=== PATIENT | male | born 1955 | race African-American/Black ===

== ENCOUNTER 2016-08-09 14:57 | Emergency (ER) | payer SELFPAY ==
[~2016-08-09] VITALS: Ht 180.3 cm; Wt 98.5 kg
[2016-08-09 14:59] VITALS: BP 191/127; PULSE 108; RESP 15; TEMP 98.1; O2SAT 98
[2016-08-09 15:58] LABS: AUTOMATED NEUTROPHIL # 7.3 TH/MM3 (1.8-7.7); BASOPHIL % 0.4 % (0.0-2.0); EOSINOPHIL # 0.1 TH/MM3 (0-0.4); EOSINOPHIL % 1.2 % (0.0-4.0); HEMATOCRIT 40.6 % (39.0-51.0); HEMO FLAGS DIFF FINAL; LYMPH % 16.1 % (9.0-44.0); LYMPHOCYTE # 1.6 TH/MM3 (1.0-4.8); MEAN CELL VOLUME 94.2 FL (80.0-100.0); MEAN CORPUSCULAR HEMOGLOBIN 32.3 PG (27.0-34.0); MEAN CORPUSCULAR HGB CONC 34.3 % (32.0-36.0); MONO % 10.5 % (0.0-8.0); NEUT % 71.8 % (16.0-70.0); PLATELET COUNT 387 TH/MM3 (150-450); RED BLOOD COUNT 4.31 MIL/MM3 (4.50-5.90); RED CELL DISTRIBUTION WIDTH 13.5 % (11.6-17.2); WHITE BLOOD COUNT 10.1 TH/MM3 (4.0-11.0)
[2016-08-09 16:04] LABS: BLOOD, URINE SMALL (NEG); COMMENT (UR) CULT NOT INDICATED; CULTURE IF INDICATED CULT NOT INDICATED; GLUCOSE,URINE NEG (NEG); HYALINE CAST, URINE 2 /lpf (RARE); KETONE, URINE NEG (NEG); MUCUS URINE MOD /lpf (OCC); NITRITE,URINE NEG (NEG); SQUAMOUS EPITHELIAL CELL URINE <1 /hpf (0-5); URINE COLOR YELLOW (YELLW/STRAW)
[2016-08-09 16:20] LABS: ALT (GPT) 25 U/L (12-78); ANION GAP 9 MEQ/L (5-15); AST (GOT) 34 U/L (15-37); BICARBONATE 27.6 MEQ/L (21.0-32.0); BLOOD UREA NITROGEN 8 MG/DL (7-18); CHLORIDE 102 MEQ/L (98-107); GLOMERULAR FILTRATION RATE 81 ML/MIN (>89); POTASSIUM 3.5 MEQ/L (3.5-5.1); SODIUM (NA) 139 MEQ/L (136-145)
[2016-08-09 16:22] LABS: ALKALINE PHOSPHATASE 61 U/L (45-117); TOTAL BILIRUBIN ADULT 0.2 MG/DL (0.2-1.0)
[2016-08-09 16:44] VITALS: BP 214/126; PULSE 90; RESP 17; O2SAT 97
--- NOTE | 2016-08-09 17:04 | PD ---
HPI Chief Complaint: GI Complaint Time Seen by Provider: 16:46 Travel History International Travel<30 days: No Contact w/Intl Traveler<30days: No Traveled to known affect area: No History of Present Illness HPI 61-year-old Afro-[place] male presents emergency Department with several month history of abdominal cramping and discomfort with increased gas and change of bowel habits over the past 2-3 months. Patient is noted in the last 2 days as had some blood in his stool and with wiping. He denies pain at the rectum or burning or hemorrhoids. Patient has also noticed some intermittent dysuria, but denies fever, chills, nausea, heartburn, or vomiting. Patient states his stools are very mucousy over the past few months. Patient is eating and has good appetite. Patient has history of hypertension for which she has not been treated for several years. Patient states when they tried treating him before "nothing worked". Patient is under a lot of stress recently with his undergoing breast cancer treatments, and recent job interview which got him quite anxious. Patient denies any chest pain or palpitations. He denies any headache or other upper respiratory symptoms. He denies any other neurological symptoms. Patient's labs were performed in triage per protocol. Patient has no known drug allergies. PFSH Past Medical History Hypertension: Yes Social History Alcohol Use: Yes Tobacco Use: No Substance Use: No Allergies-Medications (Allergen,Severity, Reaction): Coded Allergies: No Known Allergies (Unverified , 08/09/16) Reported Meds & Prescriptions Reported Meds & Active Scripts Active Amlodipine (Amlodipine Besylate) 5 Mg Tab 5 Mg PO DAILY Levsin (Hyoscyamine Sulfate) 0.125 Mg Tab 0.125 Mg PO Q4H Review of Systems General / Constitutional: No: Fever, Chills Eyes: No: Visual changes HENT: No: Headaches, Vertigo, Lightheadedness, Sore Throat, Rhinitis, Rhinorrhea, Congestion, Neck Stiffness, Neck Pain Cardiovascular: No: Chest Pain or Discomfort, Palpitations, Irregular Rhythm, Tachycardia, Diaphoresis Respiratory: No: Cough, Shortness of Breath, Wheezing Gastrointestinal: Positive: Abdominal Pain (generalized mild cramping), Hematochezia, Changes in Bowel Habits, No: Nausea, Vomiting, Diarrhea, Hematemesis, Constipation, Indigestion, Dysphagia, Loss of Appetite, Other Genitourinary: Positive: Dysuria (occasional burning with urination.), No: Urgency, Frequency, Nocturia, Hematuria, Decreased Urinary Output Musculoskeletal: No: Pain Skin: No Rash Neurologic: No: Weakness Psychiatric: No: Depression Endocrine: No: Polydipsia Hematologic/Lymphatic: No: Easy Bruising Physical Exam Narrative GENERAL: Patient appears comfortable on the bed with no acute distress. SKIN: Warm and dry. Normal color. Normal turgor. HEAD: Atraumatic. Normocephalic. EYES: Pupils equal and round. No scleral icterus. No injection or drainage. ENT: No nasal bleeding or discharge. Mucous membranes pink and moist. Pharynx is clear. Airway is patent. NECK: Trachea midline. No JVD. Supple nontender. CARDIOVASCULAR: Regular rate and rhythm. No murmurs gallops or rubs. RESPIRATORY: No accessory muscle use. Clear to auscultation. Breath sounds equal bilaterally. GASTROINTESTINAL: Abdomen soft, non-tender, nondistended. Hepatic and splenic margins not palpable. No CVA tenderness. Rectal exam shows no fissure or obvious hemorrhoids. Stool is grossly guaiac positive. No ketan blood is noted. MUSCULOSKELETAL: Extremities without clubbing, cyanosis, or edema. No obvious deformities. NEUROLOGICAL: Awake and alert. No obvious cranial nerve deficits. Motor grossly within normal limits. Five out of 5 muscle strength in the arms and legs. Normal speech. PSYCHIATRIC: Appropriate mood and affect; insight and judgment normal. Data Data Last Documented VS Vital Signs Date Time Temp Pulse Resp B/P Pulse Ox O2 Delivery O2 Flow Rate FiO2 08/09/16 16:44 90 17 214/126 97 Room Air 08/09/16 14:59 98.1 Orders Complete Blood Count With Diff (08/09/16 15:16) Comprehensive Metabolic Panel (08/09/16 15:16) Urinalysis - C+S If Indicated (08/09/16 15:16) Lipase (08/09/16 15:16) Amlodipine (Norvasc) (08/09/16 17:45) Labs Laboratory Tests Test 08/09/16 15:37 White Blood Count 10.1 TH/MM3 Red Blood Count 4.31 MIL/MM3 Hemoglobin 13.9 GM/DL Hematocrit 40.6 % Mean Corpuscular Volume 94.2 FL Mean Corpuscular Hemoglobin 32.3 PG Mean Corpuscular Hemoglobin 34.3 % Concent Red Cell Distribution Width 13.5 % Platelet Count 387 TH/MM3 Mean Platelet Volume 7.5 FL Neutrophils (%) (Auto) 71.8 % Lymphocytes (%) (Auto) 16.1 % Monocytes (%) (Auto) 10.5 % Eosinophils (%) (Auto) 1.2 % Basophils (%) (Auto) 0.4 % Neutrophils # (Auto) 7.3 TH/MM3 Lymphocytes # (Auto) 1.6 TH/MM3 Monocytes # (Auto) 1.1 TH/MM3 Eosinophils # (Auto) 0.1 TH/MM3 Basophils # (Auto) 0.0 TH/MM3 CBC Comment DIFF FINAL Differential Comment Urine Color YELLOW Urine Turbidity CLEAR Urine pH 6.0 Urine Specific [place] 1.022 Urine Protein 100 mg/dL Urine Glucose (UA) NEG mg/dL Urine Ketones NEG mg/dL Urine Occult Blood SMALL Urine Nitrite NEG Urine Bilirubin NEG Urine Urobilinogen 4.0 MG/DL Urine Leukocyte Esterase NEG Urine RBC 21 /hpf Urine WBC 1 /hpf Urine Squamous Epithelial <1 /hpf Cells Urine Hyaline Casts 2 /lpf Urine Mucus MOD /lpf Microscopic Urinalysis Comment CULT NOT INDICATED Sodium Level 139 MEQ/L Potassium Level 3.5 MEQ/L Chloride Level 102 MEQ/L Carbon Dioxide Level 27.6 MEQ/L Anion Gap 9 MEQ/L Blood Urea Nitrogen 8 MG/DL Creatinine 0.95 MG/DL Estimat Glomerular Filtration 81 ML/MIN Rate Random Glucose 81 MG/DL Calcium Level 9.3 MG/DL Total Bilirubin 0.2 MG/DL Aspartate Amino Transf 34 U/L (AST/SGOT) Alanine Aminotransferase 25 U/L (ALT/SGPT) Alkaline Phosphatase 61 U/L Total Protein 8.6 GM/DL Albumin 3.5 GM/DL Lipase 110 U/L [facility] Medical Decision Making Medical Screen Exam Complete: Yes Emergency Medical Condition: Yes Differential Diagnosis Hypertension. Abdominal pain and cramping. Guaiac positive stool. Narrative Course Patient is medically stable at time of exam. Labs are reviewed and shown to be stable. Patient is discussed with Dr. Salvador, who recommends treating the patient with amlodipine 5 mg daily, and close follow-up with management lecturer for colonoscopy workup. Patient is agreeable to this plan. Call was placed to Dr. Melgoza, the management lecturer on-call. Dr. Melgoza asked the patient to call her office tomorrow to make a follow-up appointment. The plan was discussed with the patient and agrees follow-up. Patient is given amlodipine 10 mg once now. Patient is given a prescription for Levsin 0.25 mg every 6 hours when necessary #60. Patient is also started what amlodipine 5 mg daily #30. Patient should follow-up with a local primary care physician as well. Diagnosis Primary Impression: Hypertension Qualified Code: I10 - Essential hypertension Additional Impressions: Guaiac positive stools Abdominal cramping Referrals: Dahiana Melgoza MD call for appointment [facility] call for appointment Patient Instructions: 2 Gram Sodium Diet (GEN), General Instructions, Hypertension (ED), Irritable Bowel Syndrome (ED) Additional Instructions: Dr. Melgoza asked the patient to call her office tomorrow to make a follow-up appointment. The plan was discussed with the patient and agrees follow-up. Patient is given amlodipine 10 mg once now. Patient is given a prescription for Levsin 0.25 mg every 6 hours when necessary #60. Patient is also started what amlodipine 5 mg daily #30. Patient should follow-up with a local primary care physician as well. Med/Other Pt SpecificInfo: Prescription(s) given Scripts Amlodipine 5 Mg Tab5 Mg PO DAILY #30 TAB Ref 0 Prov:Quan Salvador MD 08/09/16 Hyoscyamine (Levsin)0.125 Mg Tab0.125 Mg PO Q4H #60 TAB Ref 0 Prov:Quan Salvador MD 08/09/16 Disposition: 01 DISCHARGE HOME Condition: Stable Christopher Paul Aug 09, 2016 17:04
[2016-08-09] MEDS ORDERED: AMLO5TAB2 PO (17:40)
[2016-08-09] MEDS ORDERED: LEVS0.123 PO (17:40)
[2016-08-09 17:53] VITALS: BP 215/127; PULSE 92; RESP 18; O2SAT 95
== END 2016-08-09 18:21 | disposition home or self-care (01) ==
LOC: NEPE 14:57
DX: I10 Essential (primary) hypertension (principal); R10.9 Unspecified abdominal pain; R19.5 Other fecal abnormalities
CPT/HCPCS: 80053; 81001; 83690; 85025; 99284

== ENCOUNTER 2016-10-18 08:31 | Inpatient (IN) | payer SELFPAY ==
[~2016-10-18] VITALS: Ht 180.3 cm; Wt 80.0 kg
[2016-10-18] VITALS (12 sets, daily range): BP systolic 146–205; BP diastolic 84–128; PULSE 85–114; RESP 16–20; TEMP 98.1–99.1; O2SAT 94–98
[~2016-10-18 08:31] MED LIST: AMLO5TAB2 PO; LEVS0.123 PO
[2016-10-18] MEDS ORDERED: SODIUM CHLORIDE 0.9% FLUSH 10 ML FLUSH IV FLUSH PRN ×2 (09:15→15:00)
--- NOTE | 2016-10-18 09:21 | PD ---
HPI Chief Complaint: Complaint Time Seen by Provider: 09:01 Travel History International Travel<30 days: No Contact w/Intl Traveler<30days: No Traveled to known affect area: No History of Present Illness HPI This patient complains of some vague suprapubic discomfort for the last 2-3 months. He was not able to urinate this morning. When he urinates he feels like he has discomfort. Denies vomiting or fever or diarrhea. No abdominal surgeries. Symptoms severity is moderate. No alleviating factors. PFSH Past Medical History Hypertension: Yes Tetanus Vaccination: Unknown Past Surgical History Surgical History: No Previous Surgery Social History Alcohol Use: Yes (occassional) Tobacco Use: Yes (since teenager) Substance Use: No Allergies-Medications (Allergen,Severity, Reaction): Coded Allergies: No Known Allergies (Unverified , 10/18/16) Reported Meds & Prescriptions Reported Meds & Active Scripts Active Amlodipine (Amlodipine Besylate) 5 Mg Tab 5 Mg PO DAILY Levsin (Hyoscyamine Sulfate) 0.125 Mg Tab 0.125 Mg PO Q4H Review of Systems General / Constitutional: No: Fever Eyes: No: Visual changes HENT: No: Headaches Cardiovascular: No: Chest Pain or Discomfort Respiratory: No: Shortness of Breath Gastrointestinal: Positive: Abdominal Pain Genitourinary: Positive: Dysuria, Hematuria, Decreased Urinary Output, Hesitancy Musculoskeletal: No: Pain Skin: No Rash Neurologic: No: Weakness Psychiatric: No: Depression Endocrine: No: Polydipsia Hematologic/Lymphatic: No: Easy Bruising Physical Exam Narrative GENERAL: Well-nourished, well-developed patient with suprapubic pain. SKIN: Focused skin assessment reveals no rash and nodules. Skin is Warm and dry. HEAD: Atraumatic. Normocephalic. EYES: Pupils equal and round. No scleral icterus. No injection or drainage. ENT: No nasal bleeding or discharge. Mucous membranes pink and moist. NECK: Trachea midline. No JVD. CARDIOVASCULAR: Regular rate and rhythm. No murmur appreciated. RESPIRATORY: No accessory muscle use. Clear to auscultation. Breath sounds equal bilaterally. GASTROINTESTINAL: Abdomen soft, is a vague sense of suprapubic fullness, nondistended. Hepatic and splenic margins not palpable. MUSCULOSKELETAL: No obvious deformities. No clubbing. No cyanosis. No edema. NEUROLOGICAL: Awake and alert. No obvious cranial nerve deficits. Motor grossly within normal limits. Normal speech. PSYCHIATRIC: Appropriate mood and affect; insight and judgment normal. exam: Circumcised penis. No testicular tenderness. No groin hernia Data Data Last Documented VS Vital Signs Date Time Temp Pulse Resp B/P Pulse Ox O2 Delivery O2 Flow Rate FiO2 10/18/16 13:57 92 18 179/110 96 Room Air 10/18/16 11:06 98.1 Orders Basic Metabolic Panel (Bmp) (10/18/16 09:09) Complete Blood Count With Diff (10/18/16 09:09) Urinalysis - C+S If Indicated (10/18/16 09:09) Iv Access Insert/Monitor (10/18/16 09:09) NPO (10/18/16 09:09) Sodium Chloride 0.9% Flush (Ns Flush) (10/18/16 09:15) Urinary Catheter Insert/Apply (10/18/16 09:09) Urine Culture (10/18/16 09:20) Ct Abd/Pel W Iv Contrast(Rout) (10/18/16 10:01) Clonidine (Catapres) (10/18/16 10:15) Iohexol 350 Inj (Omnipaque 350 Inj) (10/18/16 11:53) Metronidazole 500 Mg Inj (Flagyl 500 Mg (10/18/16 13:15) Levofloxacin 750 Mg Premix Inj (Levaquin (10/18/16 13:15) Admit Order (Ed Use Only) (10/18/16 14:17) Labs Laboratory Tests Test 10/18/16 10/18/16 10/18/16 09:00 09:20 10:10 White Blood Count 14.6 TH/MM3 Red Blood Count 4.38 MIL/MM3 Hemoglobin 13.3 GM/DL Hematocrit 40.5 % Mean Corpuscular Volume 92.5 FL Mean Corpuscular Hemoglobin 30.4 PG Mean Corpuscular Hemoglobin 32.9 % Concent Red Cell Distribution Width 13.4 % Platelet Count 553 TH/MM3 Mean Platelet Volume 7.8 FL Neutrophils (%) (Auto) 80.8 % Lymphocytes (%) (Auto) 5.6 % Monocytes (%) (Auto) 13.3 % Eosinophils (%) (Auto) 0.1 % Basophils (%) (Auto) 0.2 % Neutrophils # (Auto) 11.8 TH/MM3 Lymphocytes # (Auto) 0.8 TH/MM3 Monocytes # (Auto) 1.9 TH/MM3 Eosinophils # (Auto) 0.0 TH/MM3 Basophils # (Auto) 0.0 TH/MM3 CBC Comment DIFF FINAL Differential Comment Urine Color LIGHT-BROWN Urine Turbidity HAZY Urine pH 6.0 Urine Specific [place] 1.022 Urine Protein 300 mg/dL Urine Glucose (UA) NEG mg/dL Urine Ketones 40 mg/dL Urine Occult Blood LARGE Urine Nitrite NEG Urine Bilirubin NEG Urine Urobilinogen 8.0 MG/DL Urine Leukocyte Esterase LARGE Urine RBC /hpf Urine WBC /hpf Urine WBC Clumps MOD Urine Bacteria FEW /hpf Urine Mucus MOD /lpf Microscopic Urinalysis Comment CULTURE INDICATED Sodium Level 134 MEQ/L Potassium Level 3.9 MEQ/L Chloride Level 97 MEQ/L Carbon Dioxide Level 27.4 MEQ/L Anion Gap 10 MEQ/L Blood Urea Nitrogen 14 MG/DL Creatinine 0.78 MG/DL Estimat Glomerular Filtration 123 ML/MIN Rate Random Glucose 97 MG/DL Calcium Level 9.3 MG/DL [facility] Medical Decision Making Medical Screen Exam Complete: Yes Emergency Medical Condition: Yes Medical Record Reviewed: Yes Differential Diagnosis Urinary retention, colitis, diverticulitis Narrative Course I have reviewed the patient's electronic medical record. IV placed CBC shows leukocytosis of 15,000 Metabolic profile is normal Acuna catheter placed to evaluate for urinary retention but he has only 100 cc of urine Urinalysis shows a lot of inflammatory cells Blood pressure very elevated on arrival, on recheck it is 160/100 CT of abdomen and pelvis with IV contrast reveals a lot of inflammatory changes along the colon with extraluminal gas and fluid as well as suggestion of a colovesical fistula Case reviewed with Dr. Lyssa Diaz who will be consulted Discussed with medical residents who will admit I gave a dose of IV Levaquin and IV Flagyl Diagnosis Primary Impression: Diverticulitis large intestine Qualified Code: K57.32 - Diverticulitis of large intestine without bleeding, unspecified complication status Additional Impression: Colovesical fistula Admitting Information Admitting Physician Requests: Admit Gerardo Milton MD Oct 18, 2016 09:21
[2016-10-18 09:39] LABS: AUTOMATED NEUTROPHIL # 11.8 TH/MM3 (1.8-7.7); BASOPHIL % 0.2 % (0.0-2.0); EOSINOPHIL % 0.1 % (0.0-4.0); HEMATOCRIT 40.5 % (39.0-51.0); HEMO FLAGS DIFF FINAL; LYMPH % 5.6 % (9.0-44.0); LYMPHOCYTE # 0.8 TH/MM3 (1.0-4.8); MEAN CELL VOLUME 92.5 FL (80.0-100.0); MEAN CORPUSCULAR HEMOGLOBIN 30.4 PG (27.0-34.0); MEAN CORPUSCULAR HGB CONC 32.9 % (32.0-36.0); MONO % 13.3 % (0.0-8.0); NEUT % 80.8 % (16.0-70.0); PLATELET COUNT 553 TH/MM3 (150-450); RED BLOOD COUNT 4.38 MIL/MM3 (4.50-5.90); RED CELL DISTRIBUTION WIDTH 13.4 % (11.6-17.2); WHITE BLOOD COUNT 14.6 TH/MM3 (4.0-11.0)
[2016-10-18 09:53] LABS: BACTERIA, URINE FEW /hpf; BLOOD, URINE LARGE (NEG); COMMENT (UR) CULTURE INDICATED; CULTURE IF INDICATED CULTURE INDICATED; GLUCOSE,URINE NEG (NEG); KETONE, URINE 40 mg/dL (NEG); MUCUS URINE MOD /lpf (OCC); NITRITE,URINE NEG (NEG)
[2016-10-18 09:55] LABS: URINE COLOR LIGHT-BROWN (YELLW/STRAW)
[2016-10-18] MEDS ORDERED: cloNIDine HCL 0.2 MG TAB PO ONE (10:15)
[2016-10-18 10:49] LABS: BICARBONATE 27.4 MEQ/L (21.0-32.0); POTASSIUM 3.9 MEQ/L (3.5-5.1)
[2016-10-18] MEDS ORDERED: IOHEXOL 350 MG/ML 10 ML VIAL (for RAD DIAG) IV ONE (11:53)
--- NOTE | 2016-10-18 12:12 | RADRPT ---
EXAM DATE/TIME: 10/18/2016 11:33 [place] COMPARISON: No previous studies available for comparison. INDICATIONS : Lower abdomen pain,blood in urine,groan pain for a few month IV CONTRAST: 85 cc Omnipaque 350 (iohexol) IV ORAL CONTRAST: No oral contrast ingested. RADIATION DOSE: 8.51 CTDIvol (mGy) MEDICAL HISTORY : Hypertension. SURGICAL HISTORY : None. ENCOUNTER: Initial ACUITY: 2 months PAIN SCALE: 8/10 LOCATION: Abdomen TECHNIQUE: Volumetric scanning of the abdomen and pelvis was performed. Using automated exposure control and ad justment of the mA and/or kV according to patient size, radiation dose was kept as low as reasonably achievable to obtain optimal diagnostic quality images. FINDINGS: LOWER LUNGS: Mild atelectasis at the lung bases. Coronary artery calcifications. Trace pericardial effusion. LIVER: Mild diffuse hepatic steatosis. No focal mass identified. Gallbladder within normal limits. SPLEEN: Normal size without lesion. PANCREAS: Within normal limits. KIDNEYS: Normal in size and shape. There is no mass, stone or hydronephrosis. ADRENAL GLANDS: Within normal limits. VASCULAR: There is no aortic aneurysm. BOWEL/MESENTERY: Large area of abnormality is identified in the proximal to mid sigmoid colon region. Marked wall thic kening of the sigmoid colon along with loculated extraluminal fluid and gas abutting the superior wal l of the urinary bladder. The abnormality measures 11 x 7 cm. Wall thickening of the urinary bladder and gas within the urinary bladder also noted. Acuna catheter is in place. Findings likely represent severe diverticulitis with likely colovesical fistula formation. Numerous colonic diverticula are see n. The inflammatory change also extends into the region of the distal left ureter. ABDOMINAL WALL: Within normal limits. RETROPERITONEUM: There is no lymphadenopathy. BLADDER: Described in bowel and mesentery section. REPRODUCTIVE: Within normal limits. INGUINAL: There is no lymphadenopathy or hernia. MUSCULOSKELETAL: Within normal limits for patient age. CONCLUSION: Severe abnormality of the proximal to mid sigmoid colon with marked wall thickening extensive loculat ed extraluminal gas and fluid in this region. Ill-defined inflammatory process extends to the superio r wall of the urinary bladder. Findings likely represent chronic severe diverticulitis with colovesic al fistula formation. Underlying mass also cannot be excluded with this appearance. Kd Roca MD on October 18, 2016 at 11:55 Board Certified Radiologist. This report was verified electronically.
[2016-10-18] MEDS ORDERED: LEVOFLOXACIN 750 MG PREMIX INJ 150 ML IV ONE (13:15)
[2016-10-18] MEDS ORDERED: metroNIDAZOLE 500 MG INJ 100 ML IV ONE (13:15)
[2016-10-18] MEDS ORDERED: ACETAMINOPHEN 325 MG TAB PO PRN (15:00)
[2016-10-18] MEDS ORDERED: NALOXONE HCL 0.4 MG/ML AMP IV PRN ×2 (15:00→23:00)
[2016-10-18] MEDS ORDERED: LABETALOL HCL 100 MG/20 ML VIAL IV PRN (15:00)
[2016-10-18] MEDS ORDERED: ACETAMINOPHEN 1000 MG/100 ML VIAL IV PRN (15:00)
--- NOTE | 2016-10-18 15:16 | HHI.HP ---
HPI Service Family Medicine Primary Care Physician No Primary Care Physician Admission Diagnosis diverticulitis with colovesical fistula Diagnoses: International Travel<30 Days: No Contact w/Intl Traveler<30days: No Known Affected Area: No History of Present Illness Cortez Bass is a 61-year-old man who presents to the ED with complaints of bilateral lower abdominal pain over the past 2-3 months in addition to difficulty passing stool over the same time period. He states he was in his normal state of health prior to 2-3 months ago and had never had issues with abdominal pain or difficulty passing stool prior to this onset. He states his abdominal pain has worsened since the onset. He states when he is passing stool he is only able to pass a very small amount. Denies any visible blood or melena. Denies any fevers or chills. Denies CP, SOB, lower extremity pain or swelling. He states for pain relief he has taken a few tablets of naproxen over the past couple of days. Prior to this he did not have any significant use of NSAIDs or other lriv-jcc-limuudp medications. The patient also reports blood in his urine which he has noticed over the past couple days. He denies dysuria. The patient does not have a primary care doctor and does not have any other known medical diagnoses other than hypertension. He states he has never had a colonoscopy. Review of Systems Constitutional: DENIES: Fever, Chills Respiratory: DENIES: Cough, Hemoptysis, Sputum production, Shortness of breath Cardiovascular: DENIES: Chest pain, Palpitations, Lower Extremity Edema Gastrointestinal: COMPLAINS OF: Abdominal pain, DENIES: Black stools, Bloody stools, Constipation, Diarrhea, Nausea, Vomiting Genitourinary: COMPLAINS OF: Hematuria, DENIES: Dysuria Integumentary: DENIES: Rash Past Family Social History Past Medical History Hypertension Past Surgical History Denies Allergies: Coded Allergies: No Known Allergies (Unverified , 10/18/16) Family History Mother due to an AR Father with cirrhosis due to alcoholism Patient not aware of any significant FH of GI disorders Social History Tobacco: Admits to smoking one half PPD since the age of 16, states he now currently smokes about 5 cigarettes daily EtOH: Occasional use, denies any heavy drinking Illicit drug use: Denies Physical Exam Vital Signs Vital Signs Date Time Temp Pulse Resp B/P Pulse Ox O2 Delivery O2 Flow Rate FiO2 10/18/16 13:57 92 18 179/110 96 Room Air 10/18/16 12:09 85 16 162/103 94 Room Air 10/18/16 11:06 98.1 88 18 155/105 96 Room Air 10/18/16 10:12 92 18 205/128 97 Room Air 10/18/16 08:45 98.1 108 20 184/128 95 Room Air 10/18/16 08:33 98.8 114 16 198/103 98 Physical Exam GENERAL: Appears in some distress 2/2 lower abdominal pain NEURO: AOx3. Normal speech. presales engineer grossly intact. Motor grossly normal. SKIN: Warm and dry. No rashes or erythema. HEAD: Normocephalic. Atraumatic. EYES: PERRL. EOMI. No scleral icterus. No injection or drainage. ENT: No nasal drainage. Moist mucous membranes. No oral ulcers or lesions. NECK: Supple, trachea midline. No JVD or lymphadenopathy. CARDIOVASCULAR: Regular rate and rhythm without murmurs, rubs, or gallops. Peripheral pulses 2+. Capillary refill < 2 seconds. RESPIRATORY: Breath sounds clear to auscultation and equal bilaterally, without wheezes, rales, or rhonchi. No accessory muscle use. GASTROINTESTINAL: Abdomen soft, nontender throughout, nondistended, normal BS. No organomegaly or masses. No rebound tenderness. No guarding. : Acuna in place. Circumcised penis. No LAD. No lesions. MUSCULOSKELETAL: No edema, cyanosis, or clubbing. Normal range of motion. BACK: Nontender without obvious deformity. Laboratory Laboratory Tests Test 10/18/16 10/18/16 10/18/16 09:00 09:20 10:10 White Blood Count 14.6 Red Blood Count 4.38 Hemoglobin 13.3 Hematocrit 40.5 Mean Corpuscular Volume 92.5 Mean Corpuscular Hemoglobin 30.4 Mean Corpuscular Hemoglobin 32.9 Concent Red Cell Distribution Width 13.4 Platelet Count 553 Mean Platelet Volume 7.8 Neutrophils (%) (Auto) 80.8 Lymphocytes (%) (Auto) 5.6 Monocytes (%) (Auto) 13.3 Eosinophils (%) (Auto) 0.1 Basophils (%) (Auto) 0.2 Neutrophils # (Auto) 11.8 Lymphocytes # (Auto) 0.8 Monocytes # (Auto) 1.9 Eosinophils # (Auto) 0.0 Basophils # (Auto) 0.0 CBC Comment DIFF FINAL Differential Comment Urine Color LIGHT-BROWN Urine Turbidity HAZY Urine pH 6.0 Urine Specific [place] 1.022 Urine Protein 300 Urine Glucose (UA) NEG Urine Ketones 40 Urine Occult Blood LARGE Urine Nitrite NEG Urine Bilirubin NEG Urine Urobilinogen 8.0 Urine Leukocyte Esterase LARGE Urine RBC Urine WBC Urine WBC Clumps MOD Urine Bacteria FEW Urine Mucus MOD Microscopic Urinalysis Comment CULTURE INDICATED Sodium Level 134 Potassium Level 3.9 Chloride Level 97 Carbon Dioxide Level 27.4 Anion Gap 10 Blood Urea Nitrogen 14 Creatinine 0.78 Estimat Glomerular Filtration 123 Rate Random Glucose 97 Calcium Level 9.3 Date/Time Procedure Status Source Growth 10/18/16 09:20 Urine Culture Received Urine Clean Catch Pending Result Diagram: 10/18/16 0900 10/18/16 1010 Septic Shock Reassessment Heart: Other (tachycardic rate, regular rhythm) Lungs: Clear Skin: Warm, Dry Peripheral Pulses: Bounding Right Radial Bounding Left Radial Bounding Right Dorsalis Pedis Bounding Left Dorsalis Pedis Bounding Right Posterior Tibial Bounding Left Posterior Tibial Capillary Refill: <2 seconds Assessment and Plan Assessment and Plan 61-year-old man presents with complaints of bilateral lower abdominal pain over the past 2-3 months in addition to difficulty passing stool and found to have findings on CT c/w chronic severe diverticulitis with colovesical fistula formation. Code Status Full code Problem List: (1) Diverticulitis Status: Acute Plan: - CT abdomen/pelvis findings of severe abnormality of the proximal to mid sigmoid colon with marked wall thickening extensive loculated extraluminal gas and fluid in this region. Ill-defined inflammatory process extends to the superior wall of the urinary bladder. Findings likely represent chronic severe diverticulitis with colovesical fistula formation. An underlying mass cannot be excluded. - Afebrile, leukocytosis to 14.6 - UA with large occult blood, neg nitrite, large LE - Urine culture pending - Blood cultures pending - Given Flagyl 500mg IV and Levaquin 750mg IV in the ED - Continue Flagyl 500mg IV q6h - Continue Levaquin 750mg IV q24h - Ofirmev 650 mg q4h prn pain 1-6 - Morphine 2 mg q4h prn pain 710 - NS at 125 cc/hr - Monitor vitals q4h - Continue to monitor WBC (2) Sepsis Status: Acute Plan: Meets sepsis criteria on admission Plan as above (3) Colovesical fistula Status: Acute Plan: - Findings of colovesical fistula on CT as above - Consult colorectal surgery - Acuna catheter in place - Monitor I/Os (4) Hypertension Status: Acute Plan: BP 198/103 on admission Patient was started on amlodipine here in the ED during a previous visit Start amlodipine 10 mg po daily Labetalol 10 mg IV q4h prn BP > 180/100 Monitor vitals q4h (5) Nutrition, metabolism, and development symptoms Status: Acute Plan: Fluids: NS at 125 cc/hr Electrolytes: Continue to monitor and replete as necessary Nutrition: Heart healthy diet, nothing by mouth after midnight DVT ppx: b/l SCDs Physician Certification 2 Midnight Certification Type: Admission for Inpatient Services Order for Inpatient Services The services are ordered in accordance with Medicare regulations or non- Medicare payer requirements, as applicable. In the case of services not specified as inpatient-only, they are appropriately provided as inpatient services in accordance with the 2-midnight benchmark. Estimated LOS (days): 2 days is the estimated time the patient will need to remain in the hospital, assuming treatment plan goals are met and no additional complications. Post-Hospital Plan: Home Crow Oliveira MD R1 Oct 18, 2016 15:16
[2016-10-18] MEDS: MORPHINE SULFATE 4 MG/ML INJ IV PUSH PRN ×2 (16:42→20:23)
[2016-10-18 17:05] LABS: INDIRECT BILIRUBIN 0.2 MG/DL (0.0-0.8); TOTAL BILIRUBIN ADULT 0.3 MG/DL (0.2-1.0)
[2016-10-18] MEDS: metroNIDAZOLE 500 MG INJ 100 ML IV SCH (20:24)
[2016-10-18] MEDS: SODIUM CHLORIDE 0.9% FLUSH 10 ML FLUSH IV FLUSH SCH (20:24)
[2016-10-18] MEDS: SODIUM CHLOR 0.9% 1000 ML INJ 1,000 ML IV SCH (20:25)
[2016-10-18] MEDS: HYDROmorphone HCL PF 1 MG/ML VIAL IV PRN (23:18)
[2016-10-19] VITALS: BP 153/91; PULSE 89; RESP 18; TEMP 99.1; O2SAT 95
[2016-10-19] MEDS: metroNIDAZOLE 500 MG INJ 100 ML IV SCH ×4 (00:28→17:09)
[2016-10-19 04:00] VITALS: BP 173/116; PULSE 86; RESP 18; TEMP 98.6; O2SAT 96
[2016-10-19] MEDS: SODIUM CHLOR 0.9% 1000 ML INJ 1,000 ML IV SCH ×2 (05:28→14:25)
[2016-10-19] MEDS: MORPHINE SULFATE 4 MG/ML INJ IV PUSH PRN ×2 (05:36→17:11)
[2016-10-19 06:42] LABS: AUTOMATED NEUTROPHIL # 11.8 TH/MM3 (1.8-7.7); BASOPHIL % 0.1 % (0.0-2.0); EOSINOPHIL % 0.1 % (0.0-4.0); LYMPH % 7.7 % (9.0-44.0); LYMPHOCYTE # 1.2 TH/MM3 (1.0-4.8); MEAN CELL VOLUME 92.1 FL (80.0-100.0); MEAN CORPUSCULAR HGB CONC 32.6 % (32.0-36.0); MONO % 15.8 % (0.0-8.0); NEUT % 76.3 % (16.0-70.0); PLATELET COUNT 488 TH/MM3 (150-450); RED BLOOD COUNT 4.02 MIL/MM3 (4.50-5.90); RED CELL DISTRIBUTION WIDTH 13.4 % (11.6-17.2); WHITE BLOOD COUNT 15.5 TH/MM3 (4.0-11.0)
[2016-10-19 06:45] LABS: HEMO FLAGS AUTO DIFF
--- NOTE | 2016-10-19 06:48 | MB ---
cc: FARRUKH BULLARD M.D. DATE OF CONSULTATION October 18, 2016 CHIEF COMPLAINT Diverticulitis. HISTORY OF PRESENT ILLNESS The patient is a 61-year-old -[place] male who presented to the emergency department with lower abdominal pain for about 2-3 months. This worsened over the last week until it became more severe. His normal bowel habit is two to three times daily but during this time he has had some intermittent problems with constipation as well. He has not had any melena or hematochezia. He has been having some night sweats but he has not taken his temperature. He denies any nausea or vomiting, although he has had some anorexia. He has not ever had a colonoscopy. He denies any family history of colorectal cancer, polyps or diverticulitis. PAST MEDICAL HISTORY Hypertension. PAST SURGICAL HISTORY None. ALLERGIES None. MEDICATIONS The patient was placed on something for high blood pressure when he was in the hospital last and he is not sure what it is. He says he is almost out of this medication. SOCIAL HISTORY The patient smokes about 5-10 cigarettes daily. Alcohol occasional. The patient denies any recreational drug use. REVIEW OF SYSTEMS Negative for headache, chest pain, shortness of breath, cough, difficulty with mood or mentation, difficulty with ambulation. PHYSICAL EXAMINATION GENERAL: Physical exam reveals an alert male who appears uncomfortable. NEURO: Grossly intact. SKIN: Warm and dry. CARDIOVASCULAR: Regular rate. CHEST: Breathing is symmetric bilaterally and nonlabored. ABDOMEN: Soft, nondistended. He is tender to palpation in the left lower quadrant and the suprapubic area. EXTREMITIES: No edema. LABORATORY WORK White count of 14.6, hemoglobin of 13.3 and platelets of 553. Chemistry shows a sodium of 134, potassium 3.9, chloride is 97, bicarb is 27.4, BUN is 14, creatinine is 0.78 and glucose is 97. His liver function tests are normal. His urinalysis does show moderate mucus, moderate white blood cell count, large leukocyte esterase. IMAGING STUDIES CT scan of the abdomen and pelvis shows marked wall thickening of the proximal to mid-colon with an extensive area of loculated extraluminal gas and fluid which of extends to the superior wall of the urinary bladder consistent with severe diverticulitis with colovesical fistula. IMPRESSION Diverticulitis with probable colovesical fistula. PLAN The natural history of diverticular disease was discussed with the patient as were the normal recommendations for surgery. If he worsens or fails to improve, we may need to consider urgent or emergent surgery with a colostomy and second surgery for reanastomosis. Hopefully, however we can get the diverticulitis under control and plan for an elective surgery 8-[address], which would enable us to not only perform this in a minimally invasive fashion but also possibly to avoid any colostomy. This was discussed in detail with the patient as well as the fact that, if he does indeed go on to develop a full-blown colovesical fistula, he is likely to have a repeat problems with urinary tract infections. Thank you very much for your kind referral. I will continue to follow along with patient with you. MD LAQUITA Vargas/SSB /6:28 PM /6:39 AM ZACHARY
[2016-10-19 07:11] LABS: ANION GAP 10 MEQ/L (5-15); AST (GOT) 19 U/L (15-37); BICARBONATE 25.4 MEQ/L (21.0-32.0); BLOOD UREA NITROGEN 12 MG/DL (7-18); CHLORIDE 98 MEQ/L (98-107); GLOMERULAR FILTRATION RATE 132 ML/MIN (>89); POTASSIUM 3.6 MEQ/L (3.5-5.1); SODIUM (NA) 133 MEQ/L (136-145)
[2016-10-19 07:12] LABS: ALT (GPT) 27 U/L (12-78)
[2016-10-19 07:14] LABS: ALKALINE PHOSPHATASE 85 U/L (45-117); TOTAL BILIRUBIN ADULT 0.3 MG/DL (0.2-1.0)
[2016-10-19 08:00] VITALS: BP 151/110; PULSE 85; PULSE 89; TEMP 99; O2SAT 96
[2016-10-19 08:00] LABS: BANDS 22 % (0-6); NEUTROPHIL # MANUAL DIFF 11.5 TH/MM3 (1.8-7.7); PLATELET ESTIMATE SMEAR HIGH (NORMAL); POLYS (SEG NEUTROPHILS) 52 % (16-70); WBC DIFF SAMPLE 100
[2016-10-19 08:01] LABS: PLATELET MORPHOLOGY NORMAL (NORMAL); SCAN/DIFF FINAL DIFF MANUAL
--- NOTE | 2016-10-19 08:47 | HHI.PR ---
Subjective Remarks Acute diverticulitis with ?colovesical fistula More comfortable Objective Vital Signs Date Time Temp Pulse Resp B/P Pulse Ox O2 Delivery O2 Flow Rate FiO2 10/19/16 04:00 98.6 86 18 173/116 96 10/19/16 00:00 99.1 89 18 153/91 95 10/18/16 20:00 99.1 98 18 179/118 96 10/18/16 18:16 92 18 146/84 96 10/18/16 18:16 98.7 93 18 146/84 97 10/18/16 17:44 91 19 159/96 96 Room Air 10/18/16 16:55 92 19 160/103 96 Room Air 10/18/16 16:33 87 18 169/109 96 Room Air 10/18/16 15:31 90 19 177/112 98 Room Air 10/18/16 13:57 92 18 179/110 96 Room Air 10/18/16 12:09 85 16 162/103 94 Room Air 10/18/16 11:06 98.1 88 18 155/105 96 Room Air 10/18/16 10:12 92 18 205/128 97 Room Air I/O 10/18/16 10/18/16 10/18/16 10/19/16 10/19/16 10/19/16 07:00 15:00 23:00 07:00 15:00 23:00 Intake Total 490 ml 1053 ml Output Total 350 ml 475 ml Balance 140 ml 578 ml Intake Oral 240 ml IV Total 250 ml 1053 ml Output Urine Total 350 ml 475 ml # Voids 0 Result Diagram: 10/19/16 0606 10/19/16 0606 Objective Remarks Abdomen soft, less tenderness Assessment and Plan Assessment and Plan Clinically improved but WBC's still high Continue clear liquids one more day Lyssa Diaz MD Oct 19, 2016 08:47
--- NOTE | 2016-10-19 08:50 | HHI.FPPN ---
Subjective Remarks Cortez Bass is a 61yo gentleman with medical history significant for HTN admitted for colovesical fistula after presenting for abdominal pain x 2-3 months, gradually worsening. + associated difficulty passing stools. He has also had hematuria x 2-3 days. For further details, please see resident H&P. This morning, he reports he is feeling a bit better. His abdominal pain is slightly better. No BM yet. He feels hungry. He denies fevers or chills. He has already been seen last night and this morning by Dr. Diaz, colorectal surgery. ROS: + abdominal pain (although improved). No nausea, no vomiting. No dysuria, but hematuria as above. No fevers. All other systems reviewed are negative. PMH/PSxH/SocHx/FamHx: Per resident H&P. Significant for: HTN. No prior surgeries. Mother from OR. Father with alcoholic cirrhosis. 20+ pack year smoking history, currently 5 cigarettes per day. Occasional alcohol use. No illicit drug use. Objective Vitals Vital Signs Date Time Temp Pulse Resp B/P Pulse Ox O2 Delivery O2 Flow Rate FiO2 10/19/16 04:00 98.6 86 18 173/116 96 10/19/16 00:00 99.1 89 18 153/91 95 10/18/16 20:00 99.1 98 18 179/118 96 10/18/16 18:16 92 18 146/84 96 10/18/16 18:16 98.7 93 18 146/84 97 10/18/16 17:44 91 19 159/96 96 Room Air 10/18/16 16:55 92 19 160/103 96 Room Air 10/18/16 16:33 87 18 169/109 96 Room Air 10/18/16 15:31 90 19 177/112 98 Room Air 10/18/16 13:57 92 18 179/110 96 Room Air 10/18/16 12:09 85 16 162/103 94 Room Air 10/18/16 11:06 98.1 88 18 155/105 96 Room Air 10/18/16 10:12 92 18 205/128 97 Room Air I/O 10/18/16 10/18/16 10/18/16 10/19/16 10/19/16 10/19/16 07:00 15:00 23:00 07:00 15:00 23:00 Intake Total 490 ml 1053 ml Output Total 350 ml 475 ml Balance 140 ml 578 ml Intake Oral 240 ml IV Total 250 ml 1053 ml Output Urine Total 350 ml 475 ml # Voids 0 Result Diagram: 10/19/1660510/19/16605 Objective Remarks GENERAL: in NAD, no resp distress, nontoxic. Lying comfortably in bed and changes from supine to sit without significant difficulty HEENT: NCAT, EOMI, no scleral icterus. No conjunctival injection. MMM. NECK: Supple, no meningeal signs. No murmurs CV: Irregular rhythm initially (PACs?) but regular upon second check. No murmurs. S1 S2 CHEST/PULM: CTAB, no crackles no wheezes ABD/GI: +BS, soft, nondistended. Mild tenderness to palpation at lower abdomen. No rebound, no guarding. EXT: 2+ DP pulses. No calf tenderness. No edema. NEURO: Awake, alert. Normal muscle tone. Grossly WNL. : No CVAT SKIN: No rashes, no jaundice. PSYCH: Mood and affect are appropriate. Speech fluent. Does not appear to respond to internal stimuli. A/P Assessment and Plan 61-year-old man presents with complaints of bilateral lower abdominal pain over the past 2-3 months in addition to difficulty passing stool and found to have findings on CT c/w chronic severe diverticulitis with colovesical fistula formation. Attending Attestation Patient seen, examined, and discussed with resident team. The patient has been seen and examined. The chart and all resident notes have been reviewed. I agree that inpatient care is appropriate and that a two midnight stay is expected for the reasons documented in the resident history and physical. I have discussed this with the resident and certify the resident s order for inpatient admission. Problem List: (1) Diverticulitis Status: Acute Plan: - CT abdomen/pelvis findings of severe abnormality of the proximal to mid sigmoid colon with marked wall thickening extensive loculated extraluminal gas and fluid in this region. Ill-defined inflammatory process extends to the superior wall of the urinary bladder. Findings likely represent chronic severe diverticulitis with colovesical fistula formation. An underlying mass cannot be excluded. - Afebrile but with leukocytosis - Blood cultures pending - Given Flagyl 500mg IV and Levaquin 750mg IV in the ED - Continue Flagyl 500mg IV q6h - Continue Levaquin 750mg IV q24h - Ofirmev 650 mg q4h prn pain 1-6 - Morphine 2 mg q4h prn pain 710 - NS at 125 cc/hr (2) Hematuria Status: Acute Plan: - UA with large occult blood, neg nitrite, large LE - Urine culture pending - Suspect secondary to colovesical fistula. - Antibiotics as above. (3) Sepsis Status: Acute Plan: Meets sepsis criteria on admission Plan as above (4) Colovesical fistula Status: Acute Plan: - Findings of colovesical fistula on CT as above - Consult colorectal surgery; Appreciate recommendations. - Acuna catheter in place (5) Hypertension Status: Chronic Plan: BP 198/103 on admission Patient was started on amlodipine here in the ED during a previous visit Continue amlodipine 10 mg po daily Labetalol 10 mg IV q4h prn BP > 180/100 Rahel Martin MD Oct 19, 2016 08:50 Nutrition: Heart healthy diet, nothing by mouth after midnight DVT ppx: b/l Rahel Escalera MD Oct 19, 2016 08:50 Electrolytes: Continue to monitor and replete as necessary Nutrition: Heart healthy diet, nothing by mouth after midnight DVT ppx: b/l Rahel Escalera MD Oct 19, 2016 08:50
[2016-10-19] MEDS: SODIUM CHLORIDE 0.9% FLUSH 10 ML FLUSH IV FLUSH SCH ×2 (09:00→20:44)
[2016-10-19 12:00] VITALS: BP 147/98; PULSE 84; TEMP 98.8; O2SAT 95
[2016-10-19] MEDS: HYDROmorphone HCL PF 1 MG/ML VIAL IV PRN ×2 (13:07→20:44)
[2016-10-19] MEDS: LEVOFLOXACIN 750 MG PREMIX INJ 150 ML IV SCH (14:22)
[2016-10-19 16:00] VITALS: BP 146/103; PULSE 80; TEMP 98.7; O2SAT 95
[2016-10-19 20:00] VITALS: BP 160/101; PULSE 79; PULSE 83; RESP 16; TEMP 97.7; O2SAT 92
[2016-10-19] MEDS ORDERED: LABETALOL HCL 100 MG/20 ML VIAL IV PUSH PRN (22:30)
[2016-10-20] VITALS (8 sets, daily range): BP systolic 138–180; BP diastolic 90–114; PULSE 65–82; RESP 16–20; TEMP 96.9–98.2; O2SAT 94–96
[2016-10-20] MEDS: cloNIDine HCL 0.1 MG TAB PO PRN (01:24)
[2016-10-20] MEDS: metroNIDAZOLE 500 MG INJ 100 ML IV SCH ×4 (01:25→17:25)
[2016-10-20] MEDS: SODIUM CHLOR 0.9% 1000 ML INJ 1,000 ML IV SCH ×3 (01:26→19:19)
[2016-10-20] MEDS: MORPHINE SULFATE 4 MG/ML INJ IV PUSH PRN ×6 (01:43→21:44)
[2016-10-20 05:16] LABS: AUTOMATED NEUTROPHIL # 8.2 TH/MM3 (1.8-7.7); BASOPHIL % 0.2 % (0.0-2.0); EOSINOPHIL # 0.1 TH/MM3 (0-0.4); EOSINOPHIL % 0.4 % (0.0-4.0); HEMATOCRIT 35.9 % (39.0-51.0); HEMO FLAGS DIFF FINAL; LYMPH % 12.5 % (9.0-44.0); LYMPHOCYTE # 1.4 TH/MM3 (1.0-4.8); MEAN CELL VOLUME 91.3 FL (80.0-100.0); MEAN CORPUSCULAR HEMOGLOBIN 31.3 PG (27.0-34.0); MEAN CORPUSCULAR HGB CONC 34.2 % (32.0-36.0); NEUT % 72.9 % (16.0-70.0); PLATELET COUNT 457 TH/MM3 (150-450); RED BLOOD COUNT 3.93 MIL/MM3 (4.50-5.90); RED CELL DISTRIBUTION WIDTH 13.2 % (11.6-17.2); WHITE BLOOD COUNT 11.2 TH/MM3 (4.0-11.0)
[2016-10-20 05:32] LABS: BICARBONATE 26.1 MEQ/L (21.0-32.0); POTASSIUM 3.7 MEQ/L (3.5-5.1)
--- NOTE | 2016-10-20 08:30 | HHI.PR ---
Subjective Remarks C/R Surg afebrile, VSS UO good jacobo PO liq says pain better Objective - Vital Signs Date Time Temp Pulse Resp B/P Pulse Ox O2 Delivery O2 Flow Rate FiO2 10/20/16 07:46 96.9 65 20 180/110 96 10/18/16 17:44 Room Air Result Diagram: 10/20/16 0438 10/20/16 0438 Objective Remarks PE alert Abd - soft, mass palp lower abd A/P Assessment and Plan Imp: stable on ab's cont bowel rest Christopher Robins MD Oct 20, 2016 08:30
[2016-10-20] MEDS: SODIUM CHLORIDE 0.9% FLUSH 10 ML FLUSH IV FLUSH SCH ×2 (08:48→19:56)
[2016-10-20] MEDS: ENALAPRIL MALEATE 5 MG TAB PO SCH ×2 (08:51→20:25)
--- NOTE | 2016-10-20 09:20 | HHI.FPPN ---
Subjective Remarks Patient is doing better today. His pain is under better control. Continues to have mild burning on urination. Denies nausea or vomiting. He has not had much to eat, but says his appetite has increased. He would like solid food if possible. Denies fever, chills, headache. (Dedrick Raphael MD R2) Objective Vitals Vital Signs Date Time Temp Pulse Resp B/P Pulse Ox O2 Delivery O2 Flow Rate FiO2 10/20/16 07:46 96.9 65 20 180/110 96 10/20/16 05:56 18 10/20/16 02:30 167/101 10/20/16 00:00 97.8 75 16 168/114 96 10/19/16 22:00 18 10/19/16 20:00 79 10/19/16 20:00 97.7 83 16 160/101 92 10/19/16 16:00 98.7 80 146/103 95 10/19/16 12:00 98.8 84 147/98 95 I/O 10/19/16 10/19/16 10/19/16 10/20/16 10/20/16 10/20/16 07:00 15:00 23:00 07:00 15:00 23:00 Intake Total 1053 ml 848 ml 720 ml 1236 ml 120 ml Output Total 475 ml 600 ml 1100 ml Balance 578 ml 848 ml 120 ml 136 ml 120 ml Intake Oral 720 ml 210 ml 120 ml IV Total 1053 ml 848 ml 1026 ml Output Urine Total 475 ml 600 ml 1100 ml # Voids 5 # Bowel Movements 1 1 (Dedrick Raphael MD R2) Result Diagram: 10/20/1643710/20/16437 Objective Remarks GENERAL: in NAD, no resp distress, nontoxic. Lying comfortably in bed and changes from supine to sit without significant difficulty HEENT: NCAT, EOMI, no scleral icterus. No conjunctival injection. MMM. NECK: Supple, no meningeal signs. No murmurs CV: Regular rate, irregular rhythm. No murmurs CHEST/PULM: CTAB, no crackles no wheezes ABD/GI: +BS, soft, nondistended. Mild tenderness to palpation at lower abdomen. No rebound, no guarding. EXT: 2+ DP pulses. No calf tenderness. No edema. NEURO: Awake, alert. Normal muscle tone. Grossly WNL. : No CVAT SKIN: No rashes, no jaundice. PSYCH: Mood and affect are appropriate. Speech fluent. Does not appear to respond to internal stimuli. (Dedrick Raphael MD R2) A/P Assessment and Plan 61-year-old man presents with complaints of bilateral lower abdominal pain over the past 2-3 months in addition to difficulty passing stool and found to have findings on CT c/w chronic severe diverticulitis with colovesical fistula formation. Colorectal surgery consult. Likely will perform operation in 8-12 weeks after bowel rest, and antibiotics. Discharge Planning Pending specialist recommendations (Dedrick Raphael MD R2) Attending Attestation Patient seen and examined, discussed with Dr. Ashley Raphael. I agree with assessment and management as documented and discussed with me. Pt reports pain is improving. Tolerating full liquid diet. Appreciate colorectal surgery. (Rahel Martin MD) Problem List: (1) Diverticulitis Status: Acute Plan: Colorectal surgery consult Leukocytosis downtrending Diet per colorectal surgery, currently full liquid Colorectal surgery planned for elective surgery and 8-12 weeks which would enable a minimally invasive procedure. However, if the patient worsens or fails to improve, may consider urgent/emergent surgery with colostomy. - Blood cultures 10/18: No growth to date - Continue Flagyl 500mg IV q6h (started 10/18 - Continue Levaquin 750mg IV q24h (started 10/18 - Ofirmev 650 mg q4h prn pain 1-6 - Morphine 2 mg q4h prn pain 710 - NS at 125 cc/hr Imaging: - CT abdomen/pelvis findings of severe abnormality of the proximal to mid sigmoid colon with marked wall thickening extensive loculated extraluminal gas and fluid in this region. Ill-defined inflammatory process extends to the superior wall of the urinary bladder. Findings likely represent chronic severe diverticulitis with colovesical fistula formation. An underlying mass cannot be excluded. (2) Hematuria Status: Acute Plan: - UA with large occult blood, neg nitrite, large LE - Urine culture gram-negative ramila - Suspect secondary to colovesical fistula. - Antibiotics as above. (3) Sepsis Status: Resolved Plan: Meets sepsis criteria on admission Plan as above (4) Colovesical fistula Status: Acute Plan: - Findings of colovesical fistula on CT as above - Consult colorectal surgery; recommendations as above - Acuna catheter in place (5) Hypertension Status: Chronic Plan: Persistently elevated Continue amlodipine 10 mg po daily Enalapril 5 mg by mouth twice a day Clonidine when necessary (Dedrick Raphael MD R2) Dedrick Raphael MD R2 Oct 20, 2016 09:20 Rahel Martin MD Oct 20, 2016 12:16
[2016-10-20] MEDS: LEVOFLOXACIN 750 MG PREMIX INJ 150 ML IV SCH (12:52)
--- NOTE | 2016-10-20 14:49 | EKG ---
Date Performed: 10/19/2016 Time Performed: 22:09:47 PTAGE: 61 years EKG: Sinus rhythm WITH OCCASIONAL SUPRAVENTRICULAR PREMATURE COMPLEXES NONSPECIFIC T-WAVE ABNORMALITY BORDERLINE ECG NO PREVIOUS TRACING DOCTOR: Floyd Orona Interpretating Date/Time 10/20/2016 14:47:20
[2016-10-21] VITALS (7 sets, daily range): BP systolic 141–170; BP diastolic 91–111; PULSE 64–82; RESP 18–20; TEMP 96.9–98.6; O2SAT 93–97
[2016-10-21] MEDS: metroNIDAZOLE 500 MG INJ 100 ML IV SCH ×4 (00:42→18:36)
[2016-10-21] MEDS: cloNIDine HCL 0.1 MG TAB PO PRN ×2 (00:42→06:34)
[2016-10-21 04:54] LABS: AUTOMATED NEUTROPHIL # 6.5 TH/MM3 (1.8-7.7); BASOPHIL % 0.5 % (0.0-2.0); EOSINOPHIL # 0.1 TH/MM3 (0-0.4); EOSINOPHIL % 0.6 % (0.0-4.0); HEMATOCRIT 37.3 % (39.0-51.0); HEMO FLAGS DIFF FINAL; LYMPH % 14.5 % (9.0-44.0); LYMPHOCYTE # 1.3 TH/MM3 (1.0-4.8); MEAN CELL VOLUME 91.7 FL (80.0-100.0); MEAN CORPUSCULAR HEMOGLOBIN 31.4 PG (27.0-34.0); MEAN CORPUSCULAR HGB CONC 34.3 % (32.0-36.0); MONO % 11.8 % (0.0-8.0); NEUT % 72.6 % (16.0-70.0); PLATELET COUNT 469 TH/MM3 (150-450); RED BLOOD COUNT 4.06 MIL/MM3 (4.50-5.90); RED CELL DISTRIBUTION WIDTH 13.2 % (11.6-17.2)
[2016-10-21 05:09] LABS: ANION GAP 8 MEQ/L (5-15); BICARBONATE 27.9 MEQ/L (21.0-32.0); BLOOD UREA NITROGEN 8 MG/DL (7-18); CHLORIDE 100 MEQ/L (98-107); POTASSIUM 3.6 MEQ/L (3.5-5.1); SODIUM (NA) 136 MEQ/L (136-145)
[2016-10-21 05:11] LABS: ALKALINE PHOSPHATASE 91 U/L (45-117); ALT (GPT) 19 U/L (12-78); GLOMERULAR FILTRATION RATE 149 ML/MIN (>89); TOTAL BILIRUBIN ADULT 0.3 MG/DL (0.2-1.0)
[2016-10-21 05:23] LABS: AST (GOT) 10 U/L (15-37)
[2016-10-21] MEDS: ENALAPRIL MALEATE 5 MG TAB PO SCH (08:10)
[2016-10-21] MEDS: SODIUM CHLORIDE 0.9% FLUSH 10 ML FLUSH IV FLUSH SCH ×2 (08:10→19:48)
--- NOTE | 2016-10-21 08:16 | HHI.FPPN ---
Subjective Remarks No acute events overnight. Patients only complaint this morning is of wanting more food than his current FLD. Denies fevers, CP, SOB, abdominal pain or discomfort. States he has not had a bowel movement over the past day. Denies any headaches, dizziness, lightheadedness. No other complaints. (Crow Oliveira MD R1) Objective Vitals Vital Signs Date Time Temp Pulse Resp B/P Pulse Ox O2 Delivery O2 Flow Rate FiO2 10/21/16 07:48 98.0 64 20 170/110 97 10/21/16 04:00 97.3 70 18 159/104 93 10/21/16 00:00 97.7 80 18 159/111 95 10/20/16 20:00 97.1 82 18 138/96 94 10/20/16 19:24 81 10/20/16 17:31 16 10/20/16 16:00 96.9 75 20 166/113 95 10/20/16 12:00 98.2 80 20 165/90 95 I/O 10/20/16 10/20/16 10/20/16 10/21/16 10/21/16 10/21/16 07:00 15:00 23:00 07:00 15:00 23:00 Intake Total 1236 ml 1080 ml 360 ml 220 ml 120 ml Output Total 1100 ml 1600 ml 1200 ml 450 ml Balance 136 ml -520 ml -840 ml -230 ml 120 ml Intake Oral 210 ml 1080 ml 360 ml 120 ml 120 ml IV Total 1026 ml 100 ml Output Urine Total 1100 ml 1600 ml 1200 ml 450 ml # Bowel Movements 1 0 0 0 (Crow Oliveira MD R1) Result Diagram: 10/21/1643010/21/16 0431 Objective Remarks GENERAL: NAD. Lying supine in bed. HEENT: NCAT, EOMI, no scleral icterus. No conjunctival injection. MMM. NECK: Supple, no meningeal signs. No murmurs CV: RRR. No murmurs CHEST/PULM: CTAB, no crackles no wheezes ABD/GI: +BS, soft, nondistended. nontender. No rebound, no guarding. : Prado in place, possible with stool in urine EXT: 2+ DP pulses. No calf tenderness. No edema. NEURO: Awake, alert. Normal muscle tone. Grossly WNL. SKIN: No rashes, no jaundice. PSYCH: Mood and affect are appropriate. Speech fluent. Does not appear to respond to internal stimuli. (Crow Oliveira MD R1) A/P Assessment and Plan 61-year-old man presents with complaints of bilateral lower abdominal pain over the past 2-3 months in addition to difficulty passing stool and found to have findings on CT c/w chronic severe diverticulitis with colovesical fistula formation. Colorectal surgery consult. Likely will perform operation in 8-12 weeks after bowel rest, and antibiotics. Discharge Planning Stable for discharge today if tolerating regular diet and voiding without difficulty after Prado catheter removed CM consulted for d/c planning as pt has no insurance and will need follow up with PCP and colorectal surgery (Crow Oliveira MD R1) Attending Attestation Patient seen and examined, discussed with Dr. Oliveira. I agree with assessment and management as documented and discussed with me. Pt reports pain is improving. He is tolerating full liquid diet. Patient recently seen by Dr. Mello this AM and reports that his prado will be d /c'ed today. (Rahel Martin MD) Problem List: (1) Diverticulitis Status: Acute Plan: Colorectal surgery consult Leukocytosis downtrending Diet per colorectal surgery, trial regular diet Colorectal surgery planned for elective surgery and 8-12 weeks which would enable a minimally invasive procedure. However, if the patient worsens or fails to improve, may consider urgent/emergent surgery with colostomy. - Blood cultures 10/18: No growth to date - Continue Flagyl 500mg IV q6h (started 10/18 - Continue Levaquin 750mg IV q24h (started 10/18 - Will continue on PO ABX for 7-10 days and follow up with colorectal surgery. May need ABX for longer time period if patient continues to pass stool in urine - Ofirmev 650 mg q4h prn pain 1-6 - Morphine 2 mg q4h prn pain 710 - NS at 125 cc/hr Imaging: - CT abdomen/pelvis findings of severe abnormality of the proximal to mid sigmoid colon with marked wall thickening extensive loculated extraluminal gas and fluid in this region. Ill-defined inflammatory process extends to the superior wall of the urinary bladder. Findings likely represent chronic severe diverticulitis with colovesical fistula formation. An underlying mass cannot be excluded. (2) Hematuria Status: Acute Plan: - UA with large occult blood, neg nitrite, large LE - Urine culture gram-negative ramila - Suspect secondary to colovesical fistula. - Antibiotics as above. (3) Sepsis Status: Resolved Plan: Meets sepsis criteria on admission Plan as above (4) Colovesical fistula Status: Acute Plan: - Findings of colovesical fistula on CT as above - Consult colorectal surgery; recommendations as above - Discontinue Prado catheter today, monitor I/Os (5) Hypertension Status: Chronic Plan: Persistently elevated Continue amlodipine 10 mg po daily Increase Enalapril to 10 mg po bid Clonidine when necessary (Crow Oliveira MD R1) Crow Oliveira MD R1 Oct 21, 2016 08:16 Rahel Martin MD Oct 21, 2016 19:42
[2016-10-21] MEDS: SODIUM CHLOR 0.9% 1000 ML INJ 1,000 ML IV SCH ×2 (08:39→21:59)
--- NOTE | 2016-10-21 10:44 | HHI.PR ---
Subjective Remarks C/R Surg afebrile, VSS UO good - looks like stool in urine jacobo PO liq says pain better Objective - Vital Signs Date Time Temp Pulse Resp B/P Pulse Ox O2 Delivery O2 Flow Rate FiO2 10/21/16 08:00 82 10/21/16 07:48 98.0 20 170/110 97 10/18/16 17:44 Room Air Result Diagram: 10/21/16 0431 10/21/16 0431 Objective Remarks PE alert Abd - soft, mass palp lower abd - softer A/P Assessment and Plan Imp: stable on ab's cont bowel rest, adv diet OOB dc johan rodgers plans Christopher Mello MD Oct 21, 2016 10:44
--- NOTE | 2016-10-21 12:11 | HHI.DCPOC ---
Discharge Care Plan Diagnosis: (1) Diverticulitis (2) Hypertension (3) Hematuria (4) Colovesical fistula Goals to Promote Your Health * To prevent worsening of your condition and complications, follow up with a primary care doctor and a colorectal surgeon. Directions to Meet Your Goals Take your medications as prescribed Follow your dietary instruction Follow activity as directed Keep your appointments as scheduled Take your immunizations and boosters as scheduled If your symptoms worsen call your PCP, if no PCP go to Urgent Care Center or Emergency Room Smoking is Dangerous to Your Health. Avoid second hand smoke Call the 24-hour hour crisis hotline for domestic abuse at Crow Oliveira MD R1 Oct 21, 2016 12:11
[2016-10-21] MEDS ORDERED: CIPR500T2 PO (12:17)
[2016-10-21] MEDS ORDERED: ENAL10TA PO (12:17)
[2016-10-21] MEDS ORDERED: AMLO10 PO (12:17)
[2016-10-21] MEDS ORDERED: METR500T10 PO (12:17)
[2016-10-21] MEDS: LEVOFLOXACIN 750 MG PREMIX INJ 150 ML IV SCH (13:21)
--- NOTE | 2016-10-21 13:39 | HHI.DS ---
Crow Oliveira MD R1 10/21/16 1339: Discharge Summary Admission Date Oct 18, 2016 at 14:19 Discharge Date: Oct 21, 2016 Admitting Diagnosis diverticulitis with colovesical fistula (1) Diverticulitis Diagnosis: Principal Plan: Colorectal surgery consult Leukocytosis downtrending Diet per colorectal surgery, trial regular diet Colorectal surgery planned for elective surgery and 8-12 weeks which would enable a minimally invasive procedure. However, if the patient worsens or fails to improve, may consider urgent/emergent surgery with colostomy. - Blood cultures 10/18: No growth to date - Continue Flagyl 500mg IV q6h (started 10/18 - Continue Levaquin 750mg IV q24h (started 10/18 - Will continue on PO ABX for 7-10 days and follow up with colorectal surgery. May need ABX for longer time period if patient continues to pass stool in urine - Ofirmev 650 mg q4h prn pain 1-6 - Morphine 2 mg q4h prn pain 710 - NS at 125 cc/hr Imaging: - CT abdomen/pelvis findings of severe abnormality of the proximal to mid sigmoid colon with marked wall thickening extensive loculated extraluminal gas and fluid in this region. Ill-defined inflammatory process extends to the superior wall of the urinary bladder. Findings likely represent chronic severe diverticulitis with colovesical fistula formation. An underlying mass cannot be excluded. (2) Sepsis Diagnosis: Principal Plan: Meets sepsis criteria on admission Plan as above (3) Colovesical fistula Diagnosis: Principal Plan: - Findings of colovesical fistula on CT as above - Consult colorectal surgery; recommendations as above - Discontinue Acuna catheter today, monitor I/Os (4) Hematuria Diagnosis: Secondary Plan: - UA with large occult blood, neg nitrite, large LE - Urine culture gram-negative ramila - Suspect secondary to colovesical fistula. - Antibiotics as above. (5) Hypertension Diagnosis: Secondary Plan: Persistently elevated Continue amlodipine 10 mg po daily Increase Enalapril to 10 mg po bid Clonidine when necessary Consultants Colorectal surgery Brief History Cortez Bass is a 61-year-old man who presents to the ED with complaints of bilateral lower abdominal pain over the past 2-3 months in addition to difficulty passing stool over the same time period. He states he was in his normal state of health prior to 2-3 months ago and had never had issues with abdominal pain or difficulty passing stool prior to this onset. He states his abdominal pain has worsened since the onset. He states when he is passing stool he is only able to pass a very small amount. Denies any visible blood or melena. Denies any fevers or chills. Denies CP, SOB, lower extremity pain or swelling. He states for pain relief he has taken a few tablets of naproxen over the past couple of days. Prior to this he did not have any significant use of NSAIDs or other [id number] medications. The patient also reports blood in his urine which he has noticed over the past couple days. He denies dysuria. The patient does not have a primary care doctor and does not have any other known medical diagnoses other than hypertension. He states he has never had a colonoscopy. CBC/BMP: 10/21/16 0431 10/21/16 0431 Significant Findings Laboratory Tests Test 10/18/16 10/19/16 10/20/16 10/21/16 16:20 06:06 04:38 04:31 Albumin 2.1 GM/DL 1.9 GM/DL 2.1 GM/DL (3.4-5.0) (3.4-5.0) (3.4-5.0) White Blood Count 15.5 TH/MM3 11.2 TH/MM3 (4.0-11.0) (4.0-11.0) Red Blood Count 4.02 MIL/MM3 3.93 MIL/MM3 4.06 MIL/MM3 (4.50-5.90) (4.50-5.90) (4.50-5.90) Hemoglobin 12.0 GM/DL 12.3 GM/DL 12.8 GM/DL (13.0-17.0) (13.0-17.0) (13.0-17.0) Hematocrit 37.0 % 35.9 % 37.3 % (39.0-51.0) (39.0-51.0) (39.0-51.0) Platelet Count 488 TH/MM3 457 TH/MM3 469 TH/MM3 (150-450) (150-450) (150-450) Neutrophils (%) (Auto) 76.3 % 72.9 % 72.6 % (16.0-70.0) (16.0-70.0) (16.0-70.0) Lymphocytes (%) (Auto) 7.7 % (9.0-44.0) Monocytes (%) (Auto) 15.8 % 14.0 % 11.8 % (0.0-8.0) (0.0-8.0) (0.0-8.0) Neutrophils # (Auto) 11.8 TH/MM3 8.2 TH/MM3 (1.8-7.7) (1.8-7.7) Monocytes # (Auto) 2.4 TH/MM3 1.6 TH/MM3 1.1 TH/MM3 (0-0.9) (0-0.9) (0-0.9) Band Neutrophils % 22 % (0-6) Monocytes % 14 % (0-8) Neutrophils # (Manual) 11.5 TH/MM3 (1.8-7.7) Platelet Estimate HIGH (NORMAL) Sodium Level 133 MEQ/L (136-145) Creatinine 0.56 MG/DL (0.60-1.30) Random Glucose 108 MG/DL 116 MG/DL (74-106) (74-106) Aspartate Amino Transf 10 U/L (15-37) (AST/SGOT) Imaging CT abdomen/pelvis 10/18: Severe abnormality of the proximal to mid sigmoid colon with marked wall thickening extensive loculated extraluminal gas and fluid in this region. Ill-defined inflammatory process extends to the superior wall of the urinary bladder. Findings likely represent chronic severe diverticulitis with colovesical fistula formation. Underlying mass also cannot be excluded with his appearance. PE at Discharge GENERAL: NAD. Lying supine in bed. HEENT: NCAT, EOMI, no scleral icterus. No conjunctival injection. MMM. NECK: Supple, no meningeal signs. No murmurs CV: RRR. No murmurs CHEST/PULM: CTAB, no crackles no wheezes ABD/GI: +BS, soft, nondistended. nontender. No rebound, no guarding. : Acuna in place, possible with stool in urine EXT: 2+ DP pulses. No calf tenderness. No edema. NEURO: Awake, alert. Normal muscle tone. Grossly WNL. SKIN: No rashes, no jaundice. PSYCH: Mood and affect are appropriate. Speech fluent. Does not appear to respond to internal stimuli. Hospital Course Colorectal surgery was consulted. Patient was started on Flagyl IV and Levaquin IV. Patient was started on amlodipine 10 mg by mouth daily and enalapril 5 g by mouth twice a day for control of hypertension which had previously been poorly controlled given that the patient has no primary care physician or insurance. Colorectal surgery recommendations are for the patient to be treated for his diverticulitis and will need outpatient follow-up with colorectal surgery for possible surgical intervention in 8-12 weeks if his diverticula is under control he can undergo an elective surgery and could be minimally invasive and hopefully avoid a colostomy. Patient will be discharged with an additional week of Flagyl and ciprofloxacin and with instructions to follow up with colorectal surgery within 1 week as well as establishing with a primary care physician. Pt Condition on Discharge: Stable Discharge Disposition: Discharge Home Discharge Instructions DIET: Follow Instructions for: Heart Healthy Diet Activities you can perform: Weight Bearing as Acosta Follow up Referrals: Colorectal Surgery - 1 Week PCP Follow-up - 3-5 Days New Medications: Ciprofloxacin (Ciprofloxacin) 500 Mg Tab 500 MG PO BID Infection Days 7 Ref 0 TAB Metronidazole (Metronidazole) 500 Mg Tab 500 MG PO QID Infection Days 7 Ref 0 TAB Amlodipine (Norvasc) 10 Mg Tab 10 MG PO DAILY #30 TAB Enalapril (Enalapril) 10 Mg Tab 10 MG PO BID #60 TAB Discontinued Medications: Amlodipine (Amlodipine) 5 Mg Tab 5 MG PO DAILY Blood Pressure Management #30 Ref 0 TAB Hyoscyamine (Levsin) 0.125 Mg Tab 0.125 MG PO Q4H Gastrointestinal disorders #60 Ref 0 TAB Rahel Martin MD 10/23/16 1417: Discharge Summary Discharge Date: Oct 22, 2016 CBC/BMP: 10/21/16 0431 10/21/16 0431 Discharge Instructions Follow up Referrals: Colorectal Surgery - 1 Week PCP Follow-up - 3-5 Days New Medications: Ciprofloxacin (Ciprofloxacin) 500 Mg Tab 500 MG PO BID Infection Days 7 Ref 0 TAB Metronidazole (Metronidazole) 500 Mg Tab 500 MG PO QID Infection Days 7 Ref 0 TAB Amlodipine (Norvasc) 10 Mg Tab 10 MG PO DAILY #30 TAB Enalapril (Enalapril) 10 Mg Tab 10 MG PO BID #60 TAB Discontinued Medications: Amlodipine (Amlodipine) 5 Mg Tab 5 MG PO DAILY Blood Pressure Management #30 Ref 0 TAB Hyoscyamine (Levsin) 0.125 Mg Tab 0.125 MG PO Q4H Gastrointestinal disorders #60 Ref 0 TAB Crow Oliveira MD R1 Oct 21, 2016 13:39 Rahel Martin MD Oct 23, 2016 14:17
[2016-10-21] MEDS: MORPHINE SULFATE 4 MG/ML INJ IV PUSH PRN (17:07)
[2016-10-21] MEDS: ENALAPRIL MALEATE 10 MG TAB PO SCH ×2 (19:47→21:00)
[2016-10-22] VITALS: BP 149/103; PULSE 70; RESP 18; TEMP 97.5; O2SAT 96
[2016-10-22] MEDS: metroNIDAZOLE 500 MG INJ 100 ML IV SCH ×2 (00:13→05:24)
[2016-10-22] MEDS: MORPHINE SULFATE 4 MG/ML INJ IV PUSH PRN (00:15)
[2016-10-22 08:00] VITALS: BP 168/109; PULSE 67; RESP 20; TEMP 97.8; O2SAT 97
[2016-10-22] MEDS: SODIUM CHLORIDE 0.9% FLUSH 10 ML FLUSH IV FLUSH SCH (08:10)
[2016-10-22] MEDS: ENALAPRIL MALEATE 10 MG TAB PO SCH (08:10)
--- NOTE | 2016-10-22 09:27 | HHI.FPPN ---
Subjective Remarks No acute events overnight. Afebrile, vital signs stable. Patient states that he understands that he will be discharged today. Discussed his lack of insurance at length and urged the patient to apply for financial assistance. He refused his paperwork and states that he has worked out with Dr. Diaz his follow-up plan. He denies any pain. Denies dysuria. States his urine is tea colored. He understands that he will need to complete his course of antibiotics and follow-up with Dr. Diaz. (Sheila Hernandez MD R3) Objective Vitals Vital Signs Date Time Temp Pulse Resp B/P Pulse Ox O2 Delivery O2 Flow Rate FiO2 10/22/16 08:00 97.8 67 20 168/109 97 10/22/16 00:00 97.5 70 18 149/103 96 10/21/16 20:00 97.3 73 18 141/94 94 10/21/16 16:00 98.6 75 20 150/107 95 10/21/16 12:00 96.9 78 19 147/91 96 I/O 10/21/16 10/21/16 10/21/16 10/22/16 10/22/16 10/22/16 07:00 15:00 23:00 07:00 15:00 23:00 Intake Total 220 ml 1080 ml 340 ml 340 ml Output Total 450 ml 400 ml 1000 ml 450 ml Balance -230 ml 680 ml -660 ml -110 ml Intake Oral 120 ml 1080 ml 240 ml 240 ml IV Total 100 ml 100 ml 100 ml Output Urine Total 450 ml 400 ml 1000 ml 450 ml # Bowel Movements 0 0 0 0 (Sheila Hernandez MD R3) Result Diagram: 10/21/1643010/21/16430 Objective Remarks GENERAL: NAD. Lying supine in bed. HEENT: NCAT, EOMI, no scleral icterus. No conjunctival injection. MMM. NECK: Supple, no meningeal signs. No murmurs CV: RRR. No murmurs CHEST/PULM: CTAB, no crackles no wheezes ABD/GI: +BS, soft, nondistended. nontender. No rebound, no guarding. EXT: 2+ DP pulses. No calf tenderness. No edema. NEURO: Awake, alert. Normal muscle tone. Grossly WNL. SKIN: No rashes, no jaundice. PSYCH: Mood and affect are appropriate. Speech fluent. Does not appear to respond to internal stimuli. (Sheila Hernandez MD R3) A/P Assessment and Plan 61-year-old man presents with complaints of bilateral lower abdominal pain over the past 2-3 months in addition to difficulty passing stool and found to have findings on CT c/w chronic severe diverticulitis with colovesical fistula formation. Colorectal surgery consult. Likely will perform operation in 8-12 weeks after bowel rest, and antibiotics. Discharge Planning Discharged to home today. (Sheila Hernandez MD R3) Attending Attestation Patient seen and examined. Case reviewed and discussed. Agree with plan of care as discussed with me and documented in the resident note. (Deepti Senior MD) Problem List: (1) Diverticulitis Status: Acute Plan: Colorectal surgery consult Leukocytosis resolved Tolerated regular diet Colorectal surgery planned for elective surgery and 8-12 weeks which would enable a minimally invasive procedure. However, if the patient worsens or fails to improve, may consider urgent/emergent surgery with colostomy. - Blood cultures 10/18: No growth to date - Continue Flagyl 500mg IV q6h (started 10/18 - Continue Levaquin 750mg IV q24h (started 10/18 - Will continue on PO ABX for 7-10 days and follow up with colorectal surgery. May need ABX for longer time period if patient continues to pass stool in urine - Ofirmev 650 mg q4h prn pain 1-6 - Morphine 2 mg q4h prn pain 710 - NS at 125 cc/hr Imaging: - CT abdomen/pelvis findings of severe abnormality of the proximal to mid sigmoid colon with marked wall thickening extensive loculated extraluminal gas and fluid in this region. Ill-defined inflammatory process extends to the superior wall of the urinary bladder. Findings likely represent chronic severe diverticulitis with colovesical fistula formation. An underlying mass cannot be excluded. (2) Sepsis Status: Resolved Plan: Meets sepsis criteria on admission Plan as above (3) Colovesical fistula Status: Acute Plan: - Findings of colovesical fistula on CT as above - Consult colorectal surgery; recommendations as above - Discontinue Acuna yesterday, patient voiding well (4) Hematuria Status: Acute Plan: - UA with large occult blood, neg nitrite, large LE - Urine culture gram-negative ramila - Suspect secondary to colovesical fistula. - Antibiotics as above. (5) Hypertension Status: Chronic Plan: Persistently elevated Continue amlodipine 10 mg po daily Increase Enalapril to 10 mg po bid Clonidine when necessary (hSeila Hernandez MD R3) Sheila Hernandez MD R3 Oct 22, 2016 09:27 Deepti Senior MD Oct 23, 2016 16:11
[2016-10-22 12:00] VITALS: BP 151/101; PULSE 76; RESP 20; TEMP 97.8; O2SAT 96
--- NOTE | 2016-10-22 13:15 | HHI.PR ---
Subjective Remarks Acute diverticulitis with ?colovesical fistula More comfortable Discharge today Objective Vital Signs Date Time Temp Pulse Resp B/P Pulse Ox O2 Delivery O2 Flow Rate FiO2 10/22/16 12:00 97.8 76 20 151/101 96 10/22/16 08:00 97.8 67 20 168/109 97 10/22/16 00:00 97.5 70 18 149/103 96 10/21/16 20:00 97.3 73 18 141/94 94 10/21/16 16:00 98.6 75 20 150/107 95 I/O 10/21/16 10/21/16 10/21/16 10/22/16 10/22/16 10/22/16 07:00 15:00 23:00 07:00 15:00 23:00 Intake Total 220 ml 1080 ml 340 ml 340 ml Output Total 450 ml 400 ml 1000 ml 450 ml Balance -230 ml 680 ml -660 ml -110 ml Intake Oral 120 ml 1080 ml 240 ml 240 ml IV Total 100 ml 100 ml 100 ml Output Urine Total 450 ml 400 ml 1000 ml 450 ml # Bowel Movements 0 0 0 0 Result Diagram: 10/21/16 0431 10/21/16 043 Objective Remarks Abdomen soft, less tenderness Assessment and Plan Assessment and Plan Doing well I will see in office in 1 week Plan for elective resection in 10-12 weeks Lyssa Diaz MD Oct 22, 2016 13:15
== END 2016-10-22 14:03 | disposition home or self-care (01) | DRG 872 ==
LOC: NEPE 08:31 → NEDA 14:19 → HCIS 18:08 → N07B 10-19 16:57
PROVIDERS: ADMIT Family Medicine; ATTEND Family Medicine
DX: A41.9 Sepsis, unspecified organism (principal); K57.32 Diverticulitis of large intestine without perforation or abscess without bleeding; I10 Essential (primary) hypertension; N32.1 Vesicointestinal fistula; F17.210 Nicotine dependence, cigarettes, uncomplicated
CPT/HCPCS: 51702; 74177; 80048; 80053; 80076; 81001; 85007; 85025; 85027; 87040; 87077; 87086; 87186; 93005; 96365; 96367; J1170; J1956; J2270; J7030; Q9967

== ENCOUNTER 2017-01-25 13:00 | Inpatient (IN) | payer OTHER ==
[~2017-01-25] VITALS: Ht 180.3 cm; Wt 80.9 kg
[~2017-01-25 13:00] MED LIST changes: +AMLO10 PO; -AMLO5TAB2 PO; -LEVS0.123 PO
[2017-02-18] MEDS ORDERED: LISI40TA PO (13:19)
[2017-02-18] MEDS ORDERED: HYDR25TA5 PO (13:19)
[2017-02-21] MEDS ORDERED: METO50TA PO (09:06)
--- NOTE | 2017-02-22 11:52 | PD.HP.UP ---
H&P Update Note The Pre-Admit History and Physical Examination regarding the above named patient was reviewed (including, but not limited to, vital signs, heart, lungs, co-morbid conditions), and upon re-examination it is noted that: the patient's condition has not significantly changed since the last examination. Lyssa Diaz MD Feb 22, 2017 11:52
[2017-02-22] MEDS ORDERED: DEXAMETHASONE SOD PHOS 4 MG/ML VIAL IV ONE (12:00)
[2017-02-22] MEDS ORDERED: ceFAZolin INJ 1,000 MG VIAL IV ONE (12:00)
[2017-02-22] MEDS ORDERED: LACTATED RINGER'S 1000 ML INJ 2,000 ML IV ONE (12:00)
[2017-02-22] MEDS ORDERED: PHENYLEPHRINE HCL 10 MG/ML VIAL IV ONE (12:00)
[2017-02-22] MEDS ORDERED: SODIUM CHLORID 0.9% 500 ML INJ 500 ML IV ONE (12:00)
[2017-02-22] MEDS ORDERED: VECURONIUM BROMIDE 20 MG VIAL IV ONE (12:00)
[2017-02-22] MEDS ORDERED: LIDOCAINE HCL 1% PF 5 ML AMPULE OTHER ONE (12:00)
[2017-02-22] MEDS ORDERED: SODIUM CHLORIDE 0.9% 20 ML VIAL IV ONE (12:00)
[2017-02-22] MEDS ORDERED: ROCURONIUM INJ 50 MG/5 ML SYRINGE IV PUSH ONE (12:00)
[2017-02-22] MEDS ORDERED: PROPOFOL 200 MG/20 ML AMP IV ONE (12:00)
[2017-02-22] MEDS ORDERED: MIDAZOLAM HCL 2 MG/2 ML VIAL IV ONE (12:00)
[2017-02-22] MEDS ORDERED: ONDANSETRON HCL 4 MG/2 ML VIAL IV PUSH ONE (12:00)
[2017-02-22] MEDS ORDERED: GLYCOPYRROLATE 1 MG/5 ML SYRINGE IV PUSH ONE (12:00)
[2017-02-22] MEDS ORDERED: ePHEDrine/NS 25 MG/5 ML SYR IV ONE (12:00)
[2017-02-22] MEDS ORDERED: PHENYLEPH/NS 1000 MCG/10 ML SYR IV ONE (12:00)
[2017-02-22] MEDS ORDERED: SODIUM CHLOR 0.9% 1000 ML INJ 2,000 ML IV ONE (12:00)
[2017-02-22] MEDS ORDERED: METOPROLOL TARTRATE 25 MG TAB PO PRN (12:15)
[2017-02-22] MEDS ORDERED: CHLORHEXIDINE GLUCONATE 2 % 1 PACK (2 CLOTHS) TOPICAL PRN (12:15)
[2017-02-22] MEDS ORDERED: INSULIN HUMAN REGULAR 1,000 UNITS/10 ML VIAL SQ PRN (12:15)
[2017-02-22] MEDS ORDERED: SODIUM CHLORID 0.9% 500 ML IV PRN (12:15)
[2017-02-22] MEDS ORDERED: METRONIDAZOLE 500 MG/100 ML ISONTONIC SOLN IV SCH (12:15)
[2017-02-22] MEDS ORDERED: LACTATED RINGER'S 1000 ML IV PRN (12:15)
[2017-02-22] MEDS ORDERED: POVIDONE IODINE 5% (ANTISEPSIS KIT) 4 APPLICATIONS EACH NARE PRN (12:15)
[2017-02-22] MEDS ORDERED: DEXT 5%-NACL 0.9% 1000 ML INJ 1,000 ML IV SCH (12:15)
[2017-02-22] MEDS ORDERED: FAMOTIDINE 20 MG/2 ML VIAL ONE (12:33)
[2017-02-22] MEDS ORDERED: ACETAMINOPHEN 1000 MG/100 ML 100 ML IV ONE (12:33)
--- NOTE | 2017-02-22 15:15 | PD.OP ---
Operative Report Date of Surgery: Feb 22, 2017 Preoperative Diagnosis: (1) Colovesical fistula Postoperative Diagnosis: (1) Colovesical fistula Procedure: Cystoscopy and placement of bilateral ureteral catheters Surgeon: Collin Bowden [employer] Aisle Cashier(s): None Operation and Findings: Indication for procedure: Consult intraoperatively to pass bilateral ureteral catheters to aid in visualization of this patient's ureters during his colorectal procedure as well as performing a robot-assisted laparoscopic partial resection of bladder dome at the fistula site. Operative procedure in detail: Concurrent with the colorectal surgeon Dr. Diaz, I proceeded with cystoscopy and placement of bilateral ureteral catheters as follows. Initially cystoscopic evaluation was performed utilizing the rigid cystoscope with the 22 Israeli sheath and the 30 lens. The urethra was patent without stricture formation. The prostatic urethra was nonobstructing. Further passage of cystoscope within urinary bladder revealed both right and left ureteral orifices to be correct anatomic position effluxing clear yellow urine. There was a fistula noted involving the dome of the bladder with heaped up tissue around the periphery of the fistula. I next proceeded with placement of the left sided ureteral catheter as follows. A sensor 0.35 wire was advanced up the patient's left ureter until a small amount of resistance was met. A 6 Israeli open-ended catheter was then advanced over this wire 25 cm in a cephalad direction. The catheter in place, the guidewire was removed and reintroduced to a secondary site viable cystoscope. In similar fashion the contralateral side was accomplished. Once both catheters were placed, the cystoscope and wire were withdrawn. A 16 Israeli 10 cc Acuna catheter was next placed in both of the ureteral catheters were anchored to the Acuna via a connector. All 3 catheters were then placed to gravity drainage. Dr. Diaz then proceeded with dissection of the tumor mass adherent to the bladder dome. I was then reconsult it to evaluate the bladder dome at the fistula site. It was not a narrow fistula and there was concern of possible malignant tissue remaining at the bladder dome. I then proceeded to repeat the cystoscopic evaluation and place a sensor 0.35 wire through the fistula site within the bladder. I then reposition myself over at the robotic console and using the protruding sensor wire as a guide, I made a wide circumferential incision around this wire. The wire was then removed and the specimen placed in a Endo Catch specimen bag. I next proceeded to close the bladder in 2 layers utilizing a running 2.0 stratofix suture for the first layer and a running 2. 0 chromic suture for the outer layer. Subsequent to closure the bladder was filled with normal saline and no leakage was noted. At this point in time the procedure was turned back over to Dr. Irina Diaz. Collin Bowden MD Feb 22, 2017 15:15
[2017-02-22] MEDS: ceFAZolin 2 GM PREMIX 50 ML IV SCH ×3 (16:43→20:01)
[2017-02-22] MEDS ORDERED: SUGAMMADEX SODIUM 200 MG/2 ML VIAL IV PUSH ONE ×2 (22:46)
[2017-02-22] MEDS ORDERED: PROPOFOL 1000 MG/100 ML INJ 100 ML ONE (22:53)
[2017-02-22] MEDS: D5-NS + KCL 20 MEQ INJ 1,000 ML IV SCH (23:00)
[2017-02-22] MEDS ORDERED: ACETAMINOPHEN/HYDROcodone 325 MG/5 MG TAB PO PRN (23:00)
[2017-02-22] MEDS ORDERED: POTASSIUM CHLOR 40 MEQ PREMIX 100 ML IV PRN (23:00)
[2017-02-22] MEDS ORDERED: BENZOCAINE 6 MG/MENTHOL 10 MG LOZENGE BUCCAL PRN (23:00)
[2017-02-22] MEDS ORDERED: ACETAMINOPHEN 325 MG TAB PO PRN (23:00)
[2017-02-22] MEDS ORDERED: NALOXONE HCL 0.4 MG/ML AMP IV PRN (23:00)
[2017-02-22] MEDS ORDERED: diphenhydrAMINE HCL 50 MG/ML VIAL IV PUSH PRN (23:00)
[2017-02-22] MEDS ORDERED: POTASSIUM CHLOR 20 MEQ PREMIX 100 ML IV PRN (23:00)
[2017-02-22] MEDS ORDERED: SODIUM CHLORIDE 0.9% FLUSH 5 ML FLUSH IVF PRN (23:00)
[2017-02-22] MEDS: SODIUM CHLORIDE 0.9% FLUSH 5 ML FLUSH IVF SCH (23:00)
[2017-02-22] MEDS ORDERED: Post-op Orders (for Pharmacy) MISC XX ONE (23:00)
[2017-02-22 23:09] VITALS: O2SAT 100
[2017-02-22 23:15] VITALS: O2SAT 100
[2017-02-22 23:25] VITALS: O2SAT 94
[2017-02-22 23:26] VITALS: O2SAT 94
[2017-02-22 23:36] LABS: AUTOMATED NEUTROPHIL # 10.1 TH/MM3 (1.8-7.7); BASOPHIL % 0.3 % (0.0-2.0); EOSINOPHIL % 0.1 % (0.0-4.0); HEMATOCRIT 44.9 % (39.0-51.0); HEMO FLAGS DIFF FINAL; LYMPH % 4.6 % (9.0-44.0); LYMPHOCYTE # 0.5 TH/MM3 (1.0-4.8); MEAN CELL VOLUME 95.6 FL (80.0-100.0); MEAN CORPUSCULAR HEMOGLOBIN 31.3 PG (27.0-34.0); MEAN CORPUSCULAR HGB CONC 32.7 % (32.0-36.0); MONO % 6.4 % (0.0-8.0); NEUT % 88.6 % (16.0-70.0); PLATELET COUNT 190 TH/MM3 (150-450); RED CELL DISTRIBUTION WIDTH 15.4 % (11.6-17.2); WHITE BLOOD COUNT 11.4 TH/MM3 (4.0-11.0)
[2017-02-22] MEDS ORDERED: DO NOT ADM ANY ANTICOAGULANT DRUGS PRN (23:45)
[2017-02-22 23:56] LABS: POTASSIUM 3.9 MEQ/L (3.5-5.1)
[2017-02-23] VITALS (13 sets, daily range): BP systolic 91–115; BP diastolic 59–76; PULSE 65–82; RESP 11–22; TEMP 97.5–98.4; O2SAT 95–98
[2017-02-23] MEDS ORDERED: LACTATED RINGER'S 1000 ML INJ 500 ML IV ONE (01:00)
[2017-02-23] MEDS: MORPHINE SULFATE 30 MG/30 ML PCA IV SCH ×2 (01:29→14:58)
[2017-02-23] MEDS: metroNIDAZOLE 500 MG INJ 100 ML IV SCH ×3 (01:38→17:27)
[2017-02-23 05:27] LABS: BASOPHIL % 0.1 % (0.0-2.0); HEMATOCRIT 41.9 % (39.0-51.0); HEMO FLAGS DIFF FINAL; LYMPHOCYTE # 0.7 TH/MM3 (1.0-4.8); MEAN CELL VOLUME 95.5 FL (80.0-100.0); MEAN CORPUSCULAR HEMOGLOBIN 31.8 PG (27.0-34.0); MEAN CORPUSCULAR HGB CONC 33.3 % (32.0-36.0); MONO % 6.2 % (0.0-8.0); NEUT % 86.7 % (16.0-70.0); PLATELET COUNT 171 TH/MM3 (150-450); RED BLOOD COUNT 4.38 MIL/MM3 (4.50-5.90); RED CELL DISTRIBUTION WIDTH 15.6 % (11.6-17.2); WHITE BLOOD COUNT 10.3 TH/MM3 (4.0-11.0)
[2017-02-23 05:41] LABS: BICARBONATE 22.8 MEQ/L (21.0-32.0); POTASSIUM 3.6 MEQ/L (3.5-5.1)
[2017-02-23] MEDS: KETOROLAC TROMETHAMINE 30 MG/ML (IVP) VIAL IVP SCH ×4 (05:43→17:28)
[2017-02-23] MEDS: PCA - TOTAL MG MORPHINE DELIVERED PER SHIFT SCH ×3 (06:41→22:43)
[2017-02-23] MEDS: D5-NS + KCL 20 MEQ INJ 1,000 ML IV SCH ×3 (07:47→22:13)
[2017-02-23] MEDS: SODIUM CHLORIDE 0.9% FLUSH 5 ML FLUSH IVF SCH ×2 (09:00→21:00)
[2017-02-23] MEDS: METOPROLOL TARTRATE 50 MG TAB PO SCH ×2 (09:00→20:20)
[2017-02-23] MEDS: LISINOPRIL 20 MG TAB PO SCH (09:00)
[2017-02-23] MEDS: PANTOPRAZOLE SODIUM 40 MG VIAL IVP SCH (09:26)
[2017-02-23] MEDS: ONDANSETRON HCL 4 MG/2 ML VIAL IV PRN ×2 (10:46→18:09)
--- NOTE | 2017-02-23 11:54 | HHI.PR ---
Subjective Remarks POD#1 s/p robotic SHARON, robotic sigmoid resection, robotic partial cystectomy, diverting ileostomy Some nausea Objective Vital Signs Date Time Temp Pulse Resp B/P (MAP) Pulse Ox O2 Delivery O2 Flow Rate FiO2 02/23/17 10:00 76 02/23/17 08:46 96 Nasal Cannula 2.00 02/23/17 08:00 74 02/23/17 08:00 98.1 75 12 91/62 (72) 98 02/23/17 07:00 98 Nasal Cannula 2.00 02/23/17 06:41 14 02/23/17 06:00 76 02/23/17 04:00 97.5 76 14 107/71 (83) 97 02/23/17 04:00 76 02/23/17 02:00 76 02/23/17 01:29 14 02/23/17 01:15 97.7 70 12 115/76 (89) 97 02/23/17 00:40 98.2 70 14 124/78 (93) 98 Nasal Cannula 3 02/23/17 00:30 70 14 129/84 (99) 95 Nasal Cannula 3 02/23/17 00:15 72 14 112/80 (91) 93 Nasal Cannula 4 02/23/17 00:00 77 16 106/76 (86) 98 Nasal Cannula 4 02/22/17 23:45 80 14 105/77 (86) 96 Nasal Cannula 4 02/22/17 23:30 88 16 104/71 (82) 98 Nasal Cannula 4 02/22/17 23:26 94 Nasal Cannula 4.00 02/22/17 23:25 94 Nasal Cannula 4 02/22/17 23:25 90 16 94/70 (78) 98 Nasal Cannula 4 02/22/17 23:15 72 12 93/59 (70) 98 Mechanical Ventilator 02/22/17 23:15 100 40 02/22/17 23:09 100 40 02/22/17 23:07 40 02/22/17 23:07 98.0 70 12 72/51 (58) 100 Mechanical Ventilator 40 02/22/17 11:55 97.9 59 16 140/97 (111) 96 I/O 02/22/17 02/22/17 02/22/17 02/23/17 02/23/17 02/23/17 07:00 15:00 23:00 07:00 15:00 23:00 Intake Total 5486 ml Output Total 1000 ml Balance 4486 ml Intake Oral 240 ml IV Total 1446 ml Other 3800 ml Output Urine Total 725 ml Stool Total 20 ml Drainage Total 105 ml Estimated Blood Loss 150 ml Result Diagram: 02/23/17 0353 02/23/17 0353 Objective Remarks Abdomen soft, mild distension, tender MONSE serosanguinous Dressings c/d/i stoma pink Assessment and Plan Assessment and Plan Clears when nausea resolves Mobilize Lyssa Diaz MD Feb 23, 2017 11:54
--- NOTE | 2017-02-23 12:53 | HHI.PR ---
Subjective Patient symptoms today Postoperative day #1 Status post robot-assisted laparoscopic partial cystectomy performed in conjunction with sigmoid resection and diverting ileostomy by Dr. Diaz Complains of nausea Objective Vital Signs Vital Signs Date Time Temp Pulse Resp B/P (MAP) Pulse Ox O2 Delivery O2 Flow Rate FiO2 02/23/17 10:00 76 02/23/17 08:46 96 Nasal Cannula 2.00 02/23/17 08:00 74 02/23/17 08:00 98.1 75 12 91/62 (72) 98 02/23/17 07:00 98 Nasal Cannula 2.00 02/23/17 06:41 14 02/23/17 06:00 76 02/23/17 04:00 97.5 76 14 107/71 (83) 97 02/23/17 04:00 76 02/23/17 02:00 76 02/23/17 01:29 14 02/23/17 01:15 97.7 70 12 115/76 (89) 97 02/23/17 00:40 98.2 70 14 124/78 (93) 98 Nasal Cannula 3 02/23/17 00:30 70 14 129/84 (99) 95 Nasal Cannula 3 02/23/17 00:15 72 14 112/80 (91) 93 Nasal Cannula 4 02/23/17 00:00 77 16 106/76 (86) 98 Nasal Cannula 4 02/22/17 23:45 80 14 105/77 (86) 96 Nasal Cannula 4 02/22/17 23:30 88 16 104/71 (82) 98 Nasal Cannula 4 02/22/17 23:26 94 Nasal Cannula 4.00 02/22/17 23:25 94 Nasal Cannula 4 02/22/17 23:25 90 16 94/70 (78) 98 Nasal Cannula 4 02/22/17 23:15 72 12 93/59 (70) 98 Mechanical Ventilator 02/22/17 23:15 100 40 02/22/17 23:09 100 40 02/22/17 23:07 40 02/22/17 23:07 98.0 70 12 72/51 (58) 100 Mechanical Ventilator 40 Intake & Output 02/23/17 02/23/17 06:59 18:59 Intake Total 5486 ml Output Total 1000 ml Balance 4486 ml Intake Oral 240 ml IV Total 1446 ml Other 3800 ml Output Urine Total 725 ml Stool Total 20 ml Drainage Total 105 ml Estimated Blood Loss 150 ml Result Diagram: 02/23/17 0353 02/23/17 0353 Objective Remarks Abdomen soft, nondistended, nontender Bladder not distended Aucna catheter draining liza colored urine without clots Extremities well-perfused, nontender Medications and IVs Current Medications Medications (Trade) Dose Ordered Sig/Juan Luis Route Start Time Stop Time Status Last Admin Potassium Chloride/Dextrose/ Sod Cl 1,000 ml @ 150 mls/hr Q6H40M IV 02/22/17 23:00 02/23/17 07:47 (NS Flush) 2 ml UNSCH PRN IVF 02/22/17 23:00 (NS Flush) 2 ml BID IVF 02/22/17 23:00 02/23/17 09:00 Cefazolin Sodium 1000 mg/Sodium Chloride 100 ml @ 200 mls/hr Q6H IV 02/23/17 00:00 02/23/17 18:29 02/23/17 05:44 Metronidazole 100 ml @ 200 mls/hr Q8H IV 02/23/17 01:00 02/23/17 17:29 02/23/17 09:26 ([place] 5-325 Mg) 1 tab Q6H PRN PO 02/22/17 23:00 ([place] 5-325 Mg) 2 tab Q6H PRN PO 02/22/17 23:00 (Toradol Inj) 15 mg Q6H IVP 02/23/17 00:00 02/25/17 00:00 02/23/17 05:43 (Tylenol) 650 mg Q4H PRN PO 02/22/17 23:00 (Protonix Inj) 40 mg DAILY IVP 02/23/17 09:00 02/23/17 09:26 (Zofran Inj) 4 mg Q6H PRN IV 02/22/17 23:00 02/23/17 10:46 (Vasotec Inj) 1.25 mg Q4H PRN IV 02/22/17 23:00 (Vasotec Inj) 2.5 mg Q6H PRN IV 02/22/17 23:00 (Chloraseptic Yoav) 1 lozenge UNSCH PRN BUCCAL 02/22/17 23:00 Potassium Chloride 100 ml @ 50 mls/hr UNSCH PRN IV 02/22/17 23:00 Potassium Chloride 100 ml @ 25 mls/hr UNSCH PRN IV 02/22/17 23:00 (Heparin Inj) 5,000 units Q12H SQ 02/23/17 22:00 (Narcan Inj) 0.4 mg UNSCH PRN IV 02/22/17 23:00 (Benadryl Inj) 25 mg Q6H PRN IV PUSH 02/22/17 23:00 (Morphine 1 Mg/ ml NIGHT CUSTODIAN) 30 mg UNSCH IV 02/22/17 23:00 02/23/17 01:29 NIGHT CUSTODIAN Dosage Infused (Pha) 1 Q8HR .XX 02/22/17 23:00 02/23/17 06:41 (Norvasc) 10 mg DAILY PO 02/23/17 09:00 (Lopressor) 50 mg BID PO 02/23/17 09:00 (Prinivil) 40 mg DAILY PO 02/23/17 09:00 Miscellaneous Information ALL NURSING DEPARTME... UNSCH PRN .XX 02/22/17 23:45 02/23/17 23:44 Assessment and Plan Assessment and Plan Urologic impression: Status post robot-assisted laparoscopic partial cystectomy Plan: #1 continue Acuna catheter to gravity drainage #2 Acuna catheter to remain indwelling for a minimum of 10 days postoperatively #3 postop care as per Collin Acosta MD Feb 23, 2017 12:53
[2017-02-23] MEDS: HEPARIN SODIUM - SQ 10,000 UNITS/ML VIAL SQ SCH (22:14)
[2017-02-24] VITALS (14 sets, daily range): BP systolic 120–166; BP diastolic 75–103; PULSE 71–103; RESP 11–18; TEMP 97.9–98.7; O2SAT 90–95
[2017-02-24] MEDS: KETOROLAC TROMETHAMINE 30 MG/ML (IVP) VIAL IVP SCH ×4 (01:00→16:53)
[2017-02-24] MEDS: D5-NS + KCL 20 MEQ INJ 1,000 ML IV SCH ×3 (01:40→16:46)
[2017-02-24] MEDS: ONDANSETRON HCL 4 MG/2 ML VIAL IV PRN (04:35)
[2017-02-24 05:00] LABS: BICARBONATE 23.6 MEQ/L (21.0-32.0); POTASSIUM 3.8 MEQ/L (3.5-5.1)
[2017-02-24] MEDS: MORPHINE SULFATE 30 MG/30 ML PCA IV SCH ×2 (05:37→21:41)
[2017-02-24] MEDS: PCA - TOTAL MG MORPHINE DELIVERED PER SHIFT SCH ×3 (06:00→22:00)
[2017-02-24 06:07] LABS: AUTOMATED NEUTROPHIL # 10.4 TH/MM3 (1.8-7.7); BASOPHIL % 0.2 % (0.0-2.0); EOSINOPHIL % 0.2 % (0.0-4.0); HEMATOCRIT 40.8 % (39.0-51.0); HEMO FLAGS DIFF FINAL; LYMPHOCYTE # 1.1 TH/MM3 (1.0-4.8); MEAN CELL VOLUME 96.9 FL (80.0-100.0); MEAN CORPUSCULAR HEMOGLOBIN 31.6 PG (27.0-34.0); MEAN CORPUSCULAR HGB CONC 32.6 % (32.0-36.0); MONO % 4.7 % (0.0-8.0); NEUT % 85.9 % (16.0-70.0); PLATELET COUNT 161 TH/MM3 (150-450); RED BLOOD COUNT 4.21 MIL/MM3 (4.50-5.90); RED CELL DISTRIBUTION WIDTH 15.6 % (11.6-17.2); WHITE BLOOD COUNT 12.2 TH/MM3 (4.0-11.0)
[2017-02-24] MEDS: SODIUM CHLORIDE 0.9% FLUSH 5 ML FLUSH IVF SCH ×2 (09:00→21:00)
[2017-02-24] MEDS: PANTOPRAZOLE SODIUM 40 MG VIAL IVP SCH (09:38)
[2017-02-24] MEDS: METOPROLOL TARTRATE 50 MG TAB PO SCH ×2 (09:38→20:24)
[2017-02-24] MEDS: LISINOPRIL 20 MG TAB PO SCH (09:39)
[2017-02-24] MEDS: HEPARIN SODIUM - SQ 10,000 UNITS/ML VIAL SQ SCH ×2 (10:00→21:33)
--- NOTE | 2017-02-24 13:12 | HHI.PR ---
Subjective Patient symptoms today Postoperative day #2 Was complaining of abdominal pain earlier this morning relieved after getting out of bed Reports no problems with the Acuna catheter Objective Vital Signs Vital Signs Date Time Temp Pulse Resp B/P (MAP) Pulse Ox O2 Delivery O2 Flow Rate FiO2 02/24/17 12:00 80 02/24/17 12:00 98.1 74 11 132/82 (99) 92 02/24/17 10:00 77 02/24/17 08:00 98.4 71 12 166/83 (110) 95 02/24/17 08:00 71 02/24/17 07:00 93 Nasal Cannula 6.00 02/24/17 06:41 18 02/24/17 06:00 75 02/24/17 06:00 20 02/24/17 05:37 22 02/24/17 04:00 98.3 74 12 120/83 (95) 95 02/24/17 04:00 75 02/24/17 02:00 75 02/24/17 00:00 75 02/24/17 00:00 97.9 78 14 121/75 (90) 95 02/23/17 23:20 98 Nasal Cannula 2.00 02/23/17 22:43 21 02/23/17 22:00 75 02/23/17 22:00 22 02/23/17 20:00 98.4 70 19 110/70 (83) 95 02/23/17 20:00 82 02/23/17 18:00 74 02/23/17 16:00 98.2 66 11 94/67 (76) 98 02/23/17 16:00 66 02/23/17 15:27 12 02/23/17 14:58 12 02/23/17 14:00 12 02/23/17 14:00 65 02/23/17 14:00 12 Intake & Output 02/24/17 02/24/17 07:00 19:00 Intake Total 2308 ml Output Total 500 ml Balance 1808 ml IV Total 2308 ml Output Urine Total 350 ml Stool Total 100 ml Drainage Total 50 ml Result Diagram: 02/24/17 0346 02/24/17345 Objective Remarks Abdomen soft, moderately distended, bowel sounds present Bladder not distended Acuna catheter draining more urine Extremities well-perfused, nontender Medications and IVs Current Medications Medications (Trade) Dose Ordered Sig/Juan Luis Route Start Time Stop Time Status Last Admin Potassium Chloride/Dextrose/ Sod Cl 1,000 ml @ 150 mls/hr Q6H40M IV 02/22/17 23:00 02/24/17 08:20 (NS Flush) 2 ml UNSCH PRN IVF 02/22/17 23:00 (NS Flush) 2 ml BID IVF 02/22/17 23:00 02/24/17 09:00 ([place] 5-325 Mg) 1 tab Q6H PRN PO 02/22/17 23:00 ([place] 5-325 Mg) 2 tab Q6H PRN PO 02/22/17 23:00 (Toradol Inj) 15 mg Q6H IVP 02/23/17 00:00 02/25/17 00:00 02/24/17 12:32 (Tylenol) 650 mg Q4H PRN PO 02/22/17 23:00 (Protonix Inj) 40 mg DAILY IVP 02/23/17 09:00 02/24/17 09:38 (Zofran Inj) 4 mg Q6H PRN IV 02/22/17 23:00 02/24/17 04:35 (Vasotec Inj) 1.25 mg Q4H PRN IV 02/22/17 23:00 (Vasotec Inj) 2.5 mg Q6H PRN IV 02/22/17 23:00 (Chloraseptic Yoav) 1 lozenge UNSCH PRN BUCCAL 02/22/17 23:00 Potassium Chloride 100 ml @ 50 mls/hr UNSCH PRN IV 02/22/17 23:00 Potassium Chloride 100 ml @ 25 mls/hr UNSCH PRN IV 02/22/17 23:00 (Heparin Inj) 5,000 units Q12H SQ 02/23/17 22:00 Future Hold 02/23/17 22:14 (Narcan Inj) 0.4 mg UNSCH PRN IV 02/22/17 23:00 (Benadryl Inj) 25 mg Q6H PRN IV PUSH 02/22/17 23:00 (Morphine 1 Mg/ ml VARIETY PERFORMER) 30 mg UNSCH IV 02/22/17 23:00 02/24/17 05:37 VARIETY PERFORMER Dosage Infused (Pha) 1 Q8HR .XX 02/22/17 23:00 02/24/17 06:00 (Norvasc) 10 mg DAILY PO 02/23/17 09:00 02/24/17 09:39 (Lopressor) 50 mg BID PO 02/23/17 09:00 02/24/17 09:38 (Prinivil) 40 mg DAILY PO 02/23/17 09:00 02/24/17 09:39 Assessment and Plan Assessment and Plan Urologic impression: Status post robot-assisted laparoscopic partial cystectomy / urologically stable Plan: #1 continue Acuna catheter to gravity drainage #2 Acuna catheter to remain indwelling for a minimum of 10 days postoperatively #3 postop care as per Collin Acosta MD Feb 24, 2017 13:12
--- NOTE | 2017-02-24 13:15 | HHI.PR ---
Subjective Remarks POD#2 s/p robotic SHARON, robotic sigmoid resection, robotic partial cystectomy, diverting ileostomy no further nausea, sore Objective Vital Signs Date Time Temp Pulse Resp B/P (MAP) Pulse Ox O2 Delivery O2 Flow Rate FiO2 02/24/17 12:00 80 02/24/17 12:00 98.1 74 11 132/82 (99) 92 02/24/17 10:00 77 02/24/17 08:00 98.4 71 12 166/83 (110) 95 02/24/17 08:00 71 02/24/17 07:00 93 Nasal Cannula 6.00 02/24/17 06:41 18 02/24/17 06:00 75 02/24/17 06:00 20 02/24/17 05:37 22 02/24/17 04:00 98.3 74 12 120/83 (95) 95 02/24/17 04:00 75 02/24/17 02:00 75 02/24/17 00:00 75 02/24/17 00:00 97.9 78 14 121/75 (90) 95 02/23/17 23:20 98 Nasal Cannula 2.00 02/23/17 22:43 21 02/23/17 22:00 75 02/23/17 22:00 22 02/23/17 20:00 98.4 70 19 110/70 (83) 95 02/23/17 20:00 82 02/23/17 18:00 74 02/23/17 16:00 98.2 66 11 94/67 (76) 98 02/23/17 16:00 66 02/23/17 15:27 12 02/23/17 14:58 12 02/23/17 14:00 12 02/23/17 14:00 65 02/23/17 14:00 12 I/O 02/23/17 02/23/17 02/23/17 02/24/17 02/24/17 02/24/17 06:59 14:59 22:59 06:59 14:59 22:59 Intake Total 5486 ml 1171 ml 440 ml 2308 ml Output Total 1000 ml 350 ml 500 ml Balance 4486 ml 1171 ml 90 ml 1808 ml Intake Oral 240 ml 240 ml IV Total 1446 ml 1171 ml 200 ml 2308 ml Other 3800 ml Output Urine Total 725 ml 250 ml 350 ml Stool Total 20 ml 0 ml 100 ml Drainage Total 105 ml 100 ml 50 ml Estimated Blood Loss 150 ml Result Diagram: 02/24/17 0346 02/24/17 0346 Objective Remarks Abdomen soft, mild distension, tender MONSE serosanguinous wounds clean stoma pink Assessment and Plan Assessment and Plan Advance diet decrease IVF Lasix Transfer to [facility] D/C planning Lyssa Diaz MD Feb 24, 2017 13:15
[2017-02-24] MEDS: ENALAPRILAT 2.5 MG/2 ML VIAL IV PRN (14:42)
[2017-02-24] MEDS ORDERED: LABETALOL HCL 100 MG/20 ML VIAL IV ONE (15:30)
[2017-02-24] MEDS ORDERED: hydrALAZINE HCL 20 MG/ML VIAL IV STA (16:20)
[2017-02-24] MEDS: FUROSEMIDE 20 MG/2 ML VIAL IV PUSH SCH (16:53)
[2017-02-24] MEDS: ACETAMINOPHEN/HYDROcodone 325 MG/5 MG TAB PO PRN (20:25)
[2017-02-24] MEDS: hydrALAZINE HCL 20 MG/ML VIAL IV PRN (21:55)
[2017-02-25] VITALS (15 sets, daily range): BP systolic 143–176; BP diastolic 87–112; PULSE 84–108; RESP 15–25; TEMP 98.2–99; O2SAT 88–97
[2017-02-25] MEDS: KETOROLAC TROMETHAMINE 30 MG/ML (IVP) VIAL IVP SCH (00:29)
[2017-02-25] MEDS: D5-NS + KCL 20 MEQ INJ 1,000 ML IV SCH ×3 (03:03→22:15)
[2017-02-25] MEDS: PCA - TOTAL MG MORPHINE DELIVERED PER SHIFT SCH ×3 (06:00→22:00)
[2017-02-25 06:19] LABS: AUTOMATED NEUTROPHIL # 14.4 TH/MM3 (1.8-7.7); BASOPHIL % 0.3 % (0.0-2.0); EOSINOPHIL % 0.1 % (0.0-4.0); HEMATOCRIT 41.6 % (39.0-51.0); HEMO FLAGS DIFF FINAL; LYMPH % 5.8 % (9.0-44.0); LYMPHOCYTE # 0.9 TH/MM3 (1.0-4.8); MEAN CELL VOLUME 95.2 FL (80.0-100.0); MEAN CORPUSCULAR HEMOGLOBIN 31.3 PG (27.0-34.0); MEAN CORPUSCULAR HGB CONC 32.9 % (32.0-36.0); MONO % 3.9 % (0.0-8.0); NEUT % 89.9 % (16.0-70.0); PLATELET COUNT 191 TH/MM3 (150-450); RED BLOOD COUNT 4.36 MIL/MM3 (4.50-5.90); RED CELL DISTRIBUTION WIDTH 14.9 % (11.6-17.2)
[2017-02-25 06:41] LABS: BICARBONATE 25.5 MEQ/L (21.0-32.0)
[2017-02-25] MEDS: FUROSEMIDE 20 MG/2 ML VIAL IV PUSH SCH ×2 (09:32→18:00)
[2017-02-25] MEDS: PANTOPRAZOLE SODIUM 40 MG VIAL IVP SCH (09:33)
[2017-02-25] MEDS: METOPROLOL TARTRATE 50 MG TAB PO SCH ×2 (09:33→20:18)
[2017-02-25] MEDS: LISINOPRIL 20 MG TAB PO SCH (09:33)
[2017-02-25] MEDS: HEPARIN SODIUM - SQ 10,000 UNITS/ML VIAL SQ SCH ×2 (09:33→22:14)
[2017-02-25] MEDS: SODIUM CHLORIDE 0.9% FLUSH 5 ML FLUSH IVF SCH ×2 (09:34→20:18)
[2017-02-25] MEDS: hydrALAZINE HCL 20 MG/ML VIAL IV PRN (10:17)
--- NOTE | 2017-02-25 10:58 | PD.WCN.NOT ---
Wound Consult Description: Consult placed for New Ostomy Teaching of RLQ per Dr Diaz Communicated with: Patient Recommendation: Write down any questions for next teaching session on Saturday02/26/17 Additional Information: Patient seen on [address] [place] [address] for ileostomy assessment and teaching. Ostomy Type: Ileostomy Surgeon: Lyssa Diaz MD Date of Surgery: Feb 22, 2017 Complete: Education materials Educated patient on: Stoma Size of stoma Appearance of stoma When to empty pouch of output Barrier and pouch Hydration When to change barrier Additional information Patient seen on [address] [place] [address] for ileostomy assessment and teaching. Patient was given a mirror to observe his stoma on the lower right quadrant, while check writer was teaching patient about the appearance and size of stoma (stoma was measured at 1 1/8"), when we would change the barrier (02/26/17), and the output of the stoma (clear liquid effluent with mucus). Stoma is moderately protruding, red, round, moist, functioning with liquid effluent and mucus noted coming from lumen @ 6 o'clock. Patient states that it looks like a lipscomb. Patient was given educational materials regarding the intestinal system and how important staying hydrated is now that the colon/large intestine is not in use at this time. Patient will be seen on Saturday for more teaching, answers to any questions the patient may have, and barrier change. Ruchi Rodriguez [facility] Feb 25, 2017 10:58
[2017-02-25] MEDS: ENALAPRILAT 2.5 MG/2 ML VIAL IV PRN (12:10)
--- NOTE | 2017-02-25 16:33 | PD.CONS ---
[facility] By Reason for Consult hypertension management- post-op Primary Care Physician Darrell Delarosa M.D. Diagnoses: History of Present Illness patient is a 61 y/o male with history of hypertension and colovesical fistula who underwent sigmoid resection,partial cystectomy and diverting ileostomy. he was found to have uncontrolled hypertension post-op. at the time of my evaluation he was resting comfortably with no distress. he denies any headache, chest pain, nausea or dizziness. BP trend reviewed with slowly increasing blood pressure readings. Review of Systems Constitutional: DENIES: Fever, Weight loss, Chills, Night Sweats Eyes: DENIES: Blurred vision, Diplopia, Vision loss, Double Vision Ears, nose, mouth, throat: DENIES: Tinnitus, Vertigo, Throat pain, Epistaxis Respiratory: DENIES: Apneas, Cough, Snoring, Wheezing, Hemoptysis, Sputum production, Shortness of breath Cardiovascular: DENIES: Chest pain, Palpitations, Syncope, Dyspnea on Exertion , PND, Lower Extremity Edema, Orthopnea, Claudication Gastrointestinal: DENIES: Abdominal pain, Black stools, Bloody stools, Constipation, Diarrhea, Nausea, Vomiting, Difficulty Swallowing, Anorexia Genitourinary: DENIES: Urinary frequency, Urgency, Hematuria, Dysuria Musculoskeletal: DENIES: Joint pain, Muscle aches, Stiffness, Joint Swelling Integumentary: DENIES: Rash Neurologic: DENIES: Abnormal gait, Headache, Localized weakness, Paresthesias, Seizures, Speech Problems, Tremor, Poor Balance Psychiatric: DENIES: Anxiety, Confusion, Mood changes, Depression, Hallucinations, Agitation, Suicidal Ideation, Homicidal Ideation, Delusions Past Family Social History Allergies: Coded Allergies: No Known Allergies (Unverified , 02/21/17) Past Medical History hypertension Past Surgical History none reported. Reported Medications metoprolol amlodipine lisinopril HCTZ Active Ordered Medications Current Medications Lactated Ringer's 1,000 ml @ 30 mls/hr Q24H PRN IV SEE LABEL COMMENTS Last administered on 02/22/17t 12:00; Start 02/22/17 at 12:15; Stop 02/22/17 at 23:15 ; Status DC Sodium Chloride 500 ml @ 30 mls/hr [id number] PRN IV SEE LABEL COMMENTS; Start at 12:15; Stop 02/22/17 at 23:15; Status DC Metoprolol Tartrate (Lopressor) 25 mg TRADE FACILITATOR PRN PO SEE LABEL COMMENTS; Start 02/22/17 at 12:15; Stop 02/22/17 at 23:15; Status DC Povidone Iodine (Betadine 5% Antisepsis Kit) 1 applic TRADE FACILITATOR PRN EACH NARE SEE LABEL COMMENTS Last administered on 02/22/17 12:00; Start 02/22/17 at 12:15 ; Stop 02/22/17 at 23:15; Status DC Chlorhexidine Gluconate (Chlorhexidine 2% Cloth) 3 pack TRADE FACILITATOR PRN TOPICAL SEE LABEL COMMENTS Last administered on 02/22/17 11:30; Start 02/22/17 at 12:15 ; Stop 02/22/17 at 23:15; Status DC Insulin Human Regular (NovoLIN R INJ) See Protocol Table ... TRADE FACILITATOR PRN SQ SEE PROTOCOL TABLE; Start 02/22/17 at 12:15; Stop 02/22/17 at 23:15; Status DC Cefazolin Sodium/ Dextrose 50 ml @ 100 mls/hr TRADE FACILITATOR IV Last administered on 02/22/17 20:01; Start 02/22/17 at 12:15; Stop 02/22/17 at 23:15; Status DC Metronidazole 100 ml @ 100 mls/hr TRADE FACILITATOR IV Last administered on 02/22/17 16:47; Start 02/22/17 at 12:15; Stop 02/22/17 at 23:15; Status DC Dextrose/Sodium Chloride 1,000 ml @ 125 mls/hr Q8H IV ; Start 02/22/17 at 12:15 ; Stop 02/22/17 at 23:15; Status DC Acetaminophen 100 ml @ As Directed STK-MED ONCE IV ; Start 02/22/17 at 12:33; Stop 02/22/17 at 12:34; Status DC Famotidine (Pepcid Inj) 20 mg STK-MED ONCE .ROUTE ; Start 02/22/17 at 12:33; Stop 02/22/17 at 12:34; Status DC Sugammadex Sodium (Bridion Inj) 200 mg STK-MED ONCE IV PUSH ; Start 02/22/17 at 22:46; Stop 02/22/17 at 22:47; Status DC Propofol 100 ml @ As Directed STK-MED ONCE .ROUTE ; Start 02/22/17 at 22:53; Stop 02/22/17 at 22:54; Status DC Potassium Chloride/Dextrose/ Sod Cl 1,000 ml @ 75 mls/hr [id number] IV Last administered on 02/25/17 12:54; Start 02/22/17 at 23:00 IV Flush (NS Flush) 2 ml UNSCH PRN IVF FLUSH AFTER USING IV ACCESS; Start 02/22 at 23:00 IV Flush (NS Flush) 2 ml BID IVF Last administered on 02/25/17 09:34; Start 02/22/17 at 23:00 Cefazolin Sodium 1000 mg/Sodium Chloride 100 ml @ 200 mls/hr Q6H IV Last administered on 02/23/17 17:27; Start 02/23/17 at 00:00; Stop 02/23/17 at 18:29 ; Status DC Metronidazole 100 ml @ 200 mls/hr Q8H IV Last administered on 02/23/17 17:27 ; Start 02/23/17 at 01:00; Stop 02/23/17 at 17:29; Status DC Miscellaneous Information (Post-op Orders (for Pharmacy)) STAT ONCE XX ; Start 02/22/17 at 23:00; Stop 02/22/17 at 23:32; Status DC Acetaminophen/ Hydrocodone Bitart ([place] 5-325 Mg) 1 tab Q6H PRN PO PAIN SCALE 1 TO 4; Start 02/22/17 at 23:00 Acetaminophen/ Hydrocodone Bitart ([place] 5-325 Mg) 2 tab Q6H PRN PO PAIN SCALE 5 TO 10 Last administered on 02/24/17 20:25; Start 02/22/17 at 23:00 Ketorolac Tromethamine (Toradol Inj) 15 mg Q6H IVP Last administered on 00:29; Start 02/23/17 at 00:00; Stop 02/25/17 at 00:00; Status DC Acetaminophen (Tylenol) 650 mg Q4H PRN PO Temperature > 101F; Start 02/22/17 at 23:00 Pantoprazole Sodium (Protonix Inj) 40 mg DAILY IVP Last administered on 09:33; Start 02/23/17 at 09:00 Ondansetron HCl (Zofran Inj) 4 mg Q6H PRN IV NAUSEA Last administered on 04:35; Start 02/22/17 at 23:00 Enalaprilat (Vasotec Inj) 1.25 mg Q4H PRN IV SYS BP GREATER THAN 160 MMHG; Start 02/22/17 at 23:00 Enalaprilat (Vasotec Inj) 2.5 mg Q6H PRN IV SYS BP GREATER THAN 160 MMHG Last administered on 02/25/17 12:10; Start 02/22/17 at 23:00 Benzocaine/Menthol (Chloraseptic Yoav) 1 lozenge UNSCH PRN BUCCAL SORE THROAT; Start 02/22/17 at 23:00 Potassium Chloride 100 ml @ 50 mls/hr UNSCH PRN IV POTASSIUM 3 TO 3.5; Start 02/22/17 at 23:00 Potassium Chloride 100 ml @ 25 mls/hr UNSCH PRN IV POTASSIUM LESS THAN 3; Start 02/22/17 at 23:00 Heparin Sodium (Porcine) (Heparin Inj) 5,000 units Q12H SQ Last administered on 02/25/17 09:33; Start 02/23/17 at 22:00; Status Future hold Naloxone HCl (Narcan Inj) 0.4 mg UNSCH PRN IV RESPIRATORY RATE LESS THAN 10; Start 02/22/17 at 23:00 Diphenhydramine HCl (Benadryl Inj) 25 mg Q6H PRN IV PUSH ITCHING; Start at 23:00 Morphine Sulfate (Morphine 1 Mg/ ml CENTER MEDICAL AND [employer] DIRECTOR) 30 mg UNSCH IV Last administered on 21:41; Start 02/22/17 at 23:00 CENTER MEDICAL AND [employer] DIRECTOR Dosage Infused (Pha) 1 Q8HR .XX Last administered on 02/25/17 06:00; Start 02/22/17 at 23:00 Amlodipine Besylate (Norvasc) 10 mg DAILY PO Last administered on 02/25/17 09: 33; Start 02/23/17 at 09:00 Metoprolol Tartrate (Lopressor) 50 mg BID PO Last administered on 02/25/17 09: 33; Start 02/23/17 at 09:00 Lisinopril (Prinivil) 40 mg DAILY PO Last administered on 02/25/17 09:33; Start 02/23/17 at 09:00 Miscellaneous Information ALL NURSING DEPARTME... UNSCH PRN .XX SEE LABEL COMMENTS; Start 02/22/17 at 23:45; Stop 02/23/17 at 23:44; Status DC Lactated Ringer's 500 ml @ 500 mls/hr ONCE ONCE IV ; Start 02/23/17 at 01:00; Stop 02/23/17 at 01:59; Status DC Furosemide (Lasix Inj) 20 mg BID@09,18 IV PUSH Last administered on 02/25/17 09:32; Start 02/24/17 at 18:00; Stop 02/26/17 at 17:59 Labetalol HCl (Trandate Inj) 20 mg ONCE ONCE IV Last administered on 15:38; Start 02/24/17 at 15:30; Stop 02/24/17 at 15:31; Status DC Hydralazine HCl (Apresoline Inj) 10 mg ONCE STAT IV Last administered on 16:34; Start 02/24/17 at 16:20; Stop 02/24/17 at 16:21; Status DC Hydralazine HCl (Apresoline Inj) 10 mg Q4H PRN IV DBP > 100 Last administered on 02/25/17 10:17; Start 02/24/17 at 19:30 Family History diabetes in brother. Social History smokes a few cigarettes a day- drinks occasionally. Physical Exam Vital Signs Vital Signs Date Time Temp Pulse Resp B/P (MAP) Pulse Ox O2 Delivery O2 Flow Rate FiO2 02/25/17 14:00 87 02/25/17 12:00 98.6 97 25 176/99 (124) 93 02/25/17 12:00 99 02/25/17 10:00 88 02/25/17 08:44 91 Nasal Cannula 5.00 02/25/17 08:00 90 02/25/17 08:00 98.2 88 18 163/105 (124) 88 02/25/17 07:00 100 Nasal Cannula 5.00 40 02/25/17 06:00 15 02/25/17 06:00 90 02/25/17 06:00 16 02/25/17 04:00 99.0 90 15 143/87 (105) 90 02/25/17 04:00 90 02/25/17 02:00 90 02/25/17 00:00 98.6 108 18 169/102 (124) 89 02/25/17 00:00 108 02/24/17 22:00 90 02/24/17 22:00 15 02/24/17 22:00 15 02/24/17 21:46 15 02/24/17 21:41 15 02/24/17 21:25 15 02/24/17 20:58 92 Nasal Cannula 4.00 02/24/17 20:00 90 Nasal Cannula 5.00 02/24/17 20:00 98.7 95 16 152/103 (119) 90 02/24/17 20:00 95 02/24/17 18:00 103 Physical Exam GENERAL: This is a well-nourished, well-developed patient, in no apparent distress. SKIN: No rashes, ecchymoses or lesions. Cool and dry. HEAD: Atraumatic. Normocephalic. No temporal or scalp tenderness. EYES: Pupils equal round and reactive. Extraocular motions intact. No scleral icterus. No injection or drainage. ENT: Nose without bleeding, purulent drainage or septal hematoma. Throat without erythema, tonsillar hypertrophy or exudate. Uvula midline. Airway patent. NECK: Trachea midline. No JVD or lymphadenopathy. Supple, nontender, no meningeal signs. CARDIOVASCULAR: Regular rate and rhythm without murmurs, gallops, or rubs. RESPIRATORY: Clear to auscultation. Breath sounds equal bilaterally. No wheezes , rales, or rhonchi. GASTROINTESTINAL: Abdomen soft, non-tender, ileostomy in place. MUSCULOSKELETAL: Extremities without clubbing, cyanosis, or edema. No joint tenderness, effusion, or edema noted. No calf tenderness. Negative Homans sign bilaterally. NEUROLOGICAL: Awake and alert. Cranial nerves II through XII intact. Motor and sensory grossly within normal limits. Five out of 5 muscle strength in all muscle groups. Normal speech. Laboratory Laboratory Tests Test 02/25/17 04:51 White Blood Count 16.0 Red Blood Count 4.36 Hemoglobin 13.7 Hematocrit 41.6 Mean Corpuscular Volume 95.2 Mean Corpuscular Hemoglobin 31.3 Mean Corpuscular Hemoglobin Concent 32.9 Red Cell Distribution Width 14.9 Platelet Count 191 Mean Platelet Volume 8.4 Neutrophils (%) (Auto) 89.9 Lymphocytes (%) (Auto) 5.8 Monocytes (%) (Auto) 3.9 Eosinophils (%) (Auto) 0.1 Basophils (%) (Auto) 0.3 Neutrophils # (Auto) 14.4 Lymphocytes # (Auto) 0.9 Monocytes # (Auto) 0.6 Eosinophils # (Auto) 0.0 Basophils # (Auto) 0.0 CBC Comment DIFF FINAL Differential Comment Blood Urea Nitrogen 7 Creatinine 0.64 Random Glucose 102 Calcium Level 8.5 Sodium Level 137 Potassium Level 4.0 Chloride Level 105 Carbon Dioxide Level 25.5 Anion Gap 7 Estimat Glomerular Filtration Rate 154 Result Diagram: 02/25/17 0451 02/25/17 0451 Assessment and Plan Assessment and Plan A/P - hypertension- not optimally controlled. continue lisinopril, metoprolol and norvasc- will add po hydralazine- continue with hydralazine prn. continue to monitor and adjust the regimen as needed. -s/p sigmoid resection and ileostomy- management per colorectal surgery -DVT prophylaxis with subq Heparin thank you for the consult. Discussed Condition With he patient. Brigette Marcos MD Feb 25, 2017 16:33
[2017-02-25] MEDS: hydrALAZINE HCL 10 MG TAB PO SCH ×2 (17:41→22:14)
[2017-02-25] MEDS: MORPHINE SULFATE 30 MG/30 ML PCA IV SCH (20:17)
[2017-02-25] MEDS: ONDANSETRON HCL 4 MG/2 ML VIAL IV PRN (20:18)
[2017-02-25] MEDS: ENALAPRILAT 1.25 MG/ML VIAL IV PRN (23:06)
[2017-02-26] VITALS (14 sets, daily range): BP systolic 136–165; BP diastolic 96–112; PULSE 57–99; RESP 14–21; TEMP 98.2–98.8; O2SAT 92–96
[2017-02-26] MEDS: ENALAPRILAT 1.25 MG/ML VIAL IV PRN (00:58)
[2017-02-26] MEDS: hydrALAZINE HCL 20 MG/ML VIAL IV PRN ×2 (02:10→09:44)
[2017-02-26] MEDS: PCA - TOTAL MG MORPHINE DELIVERED PER SHIFT SCH ×3 (06:00→20:49)
[2017-02-26] MEDS: hydrALAZINE HCL 10 MG TAB PO SCH ×3 (06:17→20:48)
[2017-02-26] MEDS: FUROSEMIDE 20 MG/2 ML VIAL IV PUSH SCH (09:44)
[2017-02-26] MEDS: PANTOPRAZOLE SODIUM 40 MG VIAL IVP SCH (09:45)
[2017-02-26] MEDS: LISINOPRIL 20 MG TAB PO SCH (09:45)
[2017-02-26] MEDS: HEPARIN SODIUM - SQ 10,000 UNITS/ML VIAL SQ SCH ×2 (09:45→20:49)
[2017-02-26] MEDS: SODIUM CHLORIDE 0.9% FLUSH 5 ML FLUSH IVF SCH ×2 (09:45→21:00)
[2017-02-26] MEDS: METOPROLOL TARTRATE 50 MG TAB PO SCH ×2 (09:46→20:48)
--- NOTE | 2017-02-26 09:54 | HHI.PR ---
Subjective Remarks in no acute distress. has mild abdominal pain. no nausea or emesis. afebrile. BP trend noted. d/w the RN at the bedside. Objective Vitals Vital Signs Date Time Temp Pulse Resp B/P (MAP) Pulse Ox O2 Delivery O2 Flow Rate FiO2 02/26/17 09:31 92 Nasal Cannula 5.00 02/26/17 08:00 85 02/26/17 07:00 99 Nasal Cannula 4.00 40 02/26/17 06:45 20 02/26/17 06:00 88 02/26/17 06:00 20 02/26/17 04:00 85 02/26/17 04:00 98.8 88 20 136/101 (113) 95 02/26/17 02:00 86 02/26/17 00:00 98.3 84 15 164/112 (129) 95 02/26/17 00:00 98.3 84 15 164/112 (129) 95 02/26/17 00:00 98 02/25/17 22:00 20 02/25/17 22:00 98 02/25/17 22:00 20 02/25/17 20:36 94 Nasal Cannula 5.00 02/25/17 20:17 18 02/25/17 20:00 98 02/25/17 19:00 96 Nasal Cannula 4.00 02/25/17 18:00 88 02/25/17 16:00 98.2 84 20 174/101 (125) 97 02/25/17 16:00 86 02/25/17 14:00 20 02/25/17 14:00 87 02/25/17 14:00 20 02/25/17 12:00 98.6 97 25 176/99 (124) 93 02/25/17 12:00 99 02/25/17 10:00 88 I/O 02/25/17 02/25/17 02/25/17 02/26/17 02/26/17 02/26/17 07:00 15:00 23:00 07:00 15:00 23:00 Intake Total 1400 ml 987 ml 844 ml Output Total 1180 ml 780 ml 2600 ml Balance 220 ml 207 ml -1756 ml Intake Oral 400 ml 240 ml IV Total 1000 ml 747 ml 844 ml Output Urine Total 1000 ml 550 ml 1800 ml Stool Total 100 ml 20 ml 400 ml Emesis 300 ml Drainage Total 80 ml 210 ml 100 ml Result Diagram: 02/25/1745002/25/17450 Objective Remarks GENERAL: This is a well-nourished, well-developed patient, in no apparent distress. CARDIOVASCULAR: Regular rate and regular rhythm without murmurs, gallops, or rubs. RESPIRATORY: Clear to auscultation. Breath sounds equal bilaterally. No wheezes , rales, or rhonchi. GASTROINTESTINAL: Abdomen soft, non-tender, nondistended. Normal, active bowel sounds MUSCULOSKELETAL: Extremities without clubbing, cyanosis, or edema. NEURO: Alert & Oriented x4 to person, place, time, situation. Moves all ext x4 Medications and IVs Current Medications Lactated Ringer's 1,000 ml @ 30 mls/hr Q24H PRN IV SEE LABEL COMMENTS Last administered on 02/22/17 12:00; Start 02/22/17 at 12:15; Stop 02/22/17 at 23:15 ; Status DC Sodium Chloride 500 ml @ 30 mls/hr [id number] PRN IV SEE LABEL COMMENTS; Start at 12:15; Stop 02/22/17 at 23:15; Status DC Metoprolol Tartrate (Lopressor) 25 mg SCIENTIFIC DIVER PRN PO SEE LABEL COMMENTS; Start 02/22/17 at 12:15; Stop 02/22/17 at 23:15; Status DC Povidone Iodine (Betadine 5% Antisepsis Kit) 1 applic SCIENTIFIC DIVER PRN EACH NARE SEE LABEL COMMENTS Last administered on 02/22/17 12:00; Start 02/22/17 at 12:15 ; Stop 02/22/17 at 23:15; Status DC Chlorhexidine Gluconate (Chlorhexidine 2% Cloth) 3 pack SCIENTIFIC DIVER PRN TOPICAL SEE LABEL COMMENTS Last administered on 02/22/17 11:30; Start 02/22/17 at 12:15 ; Stop 02/22/17 at 23:15; Status DC Insulin Human Regular (NovoLIN R INJ) See Protocol Table ... SCIENTIFIC DIVER PRN SQ SEE PROTOCOL TABLE; Start 02/22/17 at 12:15; Stop 02/22/17 at 23:15; Status DC Cefazolin Sodium/ Dextrose 50 ml @ 100 mls/hr SCIENTIFIC DIVER IV Last administered on 02/22/17 20:01; Start 02/22/17 at 12:15; Stop 02/22/17 at 23:15; Status DC Metronidazole 100 ml @ 100 mls/hr SCIENTIFIC DIVER IV Last administered on 02/22/17 16:47; Start 02/22/17 at 12:15; Stop 02/22/17 at 23:15; Status DC Dextrose/Sodium Chloride 1,000 ml @ 125 mls/hr Q8H IV ; Start 02/22/17 at 12:15 ; Stop 02/22/17 at 23:15; Status DC Acetaminophen 100 ml @ As Directed STK-MED ONCE IV ; Start 02/22/17 at 12:33; Stop 02/22/17 at 12:34; Status DC Famotidine (Pepcid Inj) 20 mg STK-MED ONCE .ROUTE ; Start 02/22/17 at 12:33; Stop 02/22/17 at 12:34; Status DC Sugammadex Sodium (Bridion Inj) 200 mg STK-MED ONCE IV PUSH ; Start 02/22/17 at 22:46; Stop 02/22/17 at 22:47; Status DC Propofol 100 ml @ As Directed STK-MED ONCE .ROUTE ; Start 02/22/17 at 22:53; Stop 02/22/17 at 22:54; Status DC Potassium Chloride/Dextrose/ Sod Cl 1,000 ml @ 75 mls/hr [id number] IV Last administered on 02/25/17 22:15; Start 02/22/17 at 23:00 IV Flush (NS Flush) 2 ml UNSCH PRN IVF FLUSH AFTER USING IV ACCESS; Start 02/22 at 23:00 IV Flush (NS Flush) 2 ml BID IVF Last administered on 02/26/17 09:45; Start 02/22/17 at 23:00 Cefazolin Sodium 1000 mg/Sodium Chloride 100 ml @ 200 mls/hr Q6H IV Last administered on 02/23/17 17:27; Start 02/23/17 at 00:00; Stop 02/23/17 at 18:29 ; Status DC Metronidazole 100 ml @ 200 mls/hr Q8H IV Last administered on 02/23/17 17:27 ; Start 02/23/17 at 01:00; Stop 02/23/17 at 17:29; Status DC Miscellaneous Information (Post-op Orders (for Pharmacy)) STAT ONCE XX ; Start 02/22/17 at 23:00; Stop 02/22/17 at 23:32; Status DC Acetaminophen/ Hydrocodone Bitart ([place] 5-325 Mg) 1 tab Q6H PRN PO PAIN SCALE 1 TO 4; Start 02/22/17 at 23:00 Acetaminophen/ Hydrocodone Bitart ([place] 5-325 Mg) 2 tab Q6H PRN PO PAIN SCALE 5 TO 10 Last administered on 02/24/17 20:25; Start 02/22/17 at 23:00 Ketorolac Tromethamine (Toradol Inj) 15 mg Q6H IVP Last administered on 00:29; Start 02/23/17 at 00:00; Stop 02/25/17 at 00:00; Status DC Acetaminophen (Tylenol) 650 mg Q4H PRN PO Temperature > 101F; Start 02/22/17 at 23:00 Pantoprazole Sodium (Protonix Inj) 40 mg DAILY IVP Last administered on 09:45; Start 02/23/17 at 09:00 Ondansetron HCl (Zofran Inj) 4 mg Q6H PRN IV NAUSEA Last administered on 20:18; Start 02/22/17 at 23:00 Enalaprilat (Vasotec Inj) 1.25 mg Q4H PRN IV SYS BP GREATER THAN 160 MMHG Last administered on 02/26/17 00:58; Start 02/22/17 at 23:00 Enalaprilat (Vasotec Inj) 2.5 mg Q6H PRN IV SYS BP GREATER THAN 160 MMHG Last administered on 02/25/17 12:10; Start 02/22/17 at 23:00 Benzocaine/Menthol (Chloraseptic Yoav) 1 lozenge UNSCH PRN BUCCAL SORE THROAT; Start 02/22/17 at 23:00 Potassium Chloride 100 ml @ 50 mls/hr UNSCH PRN IV POTASSIUM 3 TO 3.5; Start 02/22/17 at 23:00 Potassium Chloride 100 ml @ 25 mls/hr UNSCH PRN IV POTASSIUM LESS THAN 3; Start 02/22/17 at 23:00 Heparin Sodium (Porcine) (Heparin Inj) 5,000 units Q12H SQ Last administered on 02/26/17 09:45; Start 02/23/17 at 22:00; Status Future hold Naloxone HCl (Narcan Inj) 0.4 mg UNSCH PRN IV RESPIRATORY RATE LESS THAN 10; Start 02/22/17 at 23:00 Diphenhydramine HCl (Benadryl Inj) 25 mg Q6H PRN IV PUSH ITCHING; Start at 23:00 Morphine Sulfate (Morphine 1 Mg/ ml [employer]IM RAISER OPERATOR) 30 mg UNSCH IV Last administered on 20:17; Start 02/22/17 at 23:00 STRAW HAT BRIM RAISER OPERATOR Dosage Infused (Pha) 1 Q8HR .XX Last administered on 02/26/17 06:00; Start 02/22/17 at 23:00 Amlodipine Besylate (Norvasc) 10 mg DAILY PO Last administered on 02/26/17 09 :46; Start 02/23/17 at 09:00 Metoprolol Tartrate (Lopressor) 50 mg BID PO Last administered on 02/26/17 09 :46; Start 02/23/17 at 09:00 Lisinopril (Prinivil) 40 mg DAILY PO Last administered on 02/26/17 09:45; Start 02/23/17 at 09:00 Miscellaneous Information ALL NURSING DEPARTME... UNSCH PRN .XX SEE LABEL COMMENTS; Start 02/22/17 at 23:45; Stop 02/23/17 at 23:44; Status DC Lactated Ringer's 500 ml @ 500 mls/hr ONCE ONCE IV ; Start 02/23/17 at 01:00; Stop 02/23/17 at 01:59; Status DC Furosemide (Lasix Inj) 20 mg BID@09,18 IV PUSH Last administered on 02/26/17 09:44; Start 02/24/17 at 18:00; Stop 02/26/17 at 17:59 Labetalol HCl (Trandate Inj) 20 mg ONCE ONCE IV Last administered on 15:38; Start 02/24/17 at 15:30; Stop 02/24/17 at 15:31; Status DC Hydralazine HCl (Apresoline Inj) 10 mg ONCE STAT IV Last administered on 16:34; Start 02/24/17 at 16:20; Stop 02/24/17 at 16:21; Status DC Hydralazine HCl (Apresoline Inj) 10 mg Q4H PRN IV DBP > 100 Last administered on 02/26/17 09:44; Start 02/24/17 at 19:30 Hydralazine HCl (Apresoline) 10 mg Q8HR PO Last administered on 02/26/17 06: 17; Start 02/25/17 at 17:30 A/P Assessment and Plan A/P - hypertension- not optimally controlled. continue lisinopril, metoprolol and norvasc- added po hydralazine- continue with hydralazine prn. continue to monitor and adjust the regimen as needed; will consider increasing the hydralazine dose if BP remains elevated. -s/p sigmoid resection and ileostomy- management per colorectal surgery -DVT prophylaxis with subq Heparin d/w the RN. Brigette Marcos MD Feb 26, 2017 09:54
[2017-02-26] MEDS: D5-NS + KCL 20 MEQ INJ 1,000 ML IV SCH ×2 (11:47→22:06)
[2017-02-26] MEDS: ONDANSETRON HCL 4 MG/2 ML VIAL IV PRN (13:27)
--- NOTE | 2017-02-26 16:48 | HHI.PR ---
Subjective Remarks POD#4 s/p robotic SHARON, robotic sigmoid resection, robotic partial cystectomy, diverting ileostomy some emesis yesterday, no nausea today painful Wants to go home Objective Vital Signs Date Time Temp Pulse Resp B/P (MAP) Pulse Ox O2 Delivery O2 Flow Rate FiO2 02/26/17 16:00 76 02/26/17 16:00 98.4 80 21 149/101 (117) 92 02/26/17 14:00 14 02/26/17 14:00 99 02/26/17 14:00 20 02/26/17 12:00 98.2 94 15 143/96 (112) 94 02/26/17 12:00 90 02/26/17 10:00 88 02/26/17 09:31 92 Nasal Cannula 5.00 02/26/17 08:00 98.2 90 19 165/107 (126) 92 02/26/17 08:00 85 02/26/17 07:00 99 Nasal Cannula 4.00 40 02/26/17 06:45 20 02/26/17 06:00 88 02/26/17 06:00 20 02/26/17 04:00 85 02/26/17 04:00 98.8 88 20 136/101 (113) 95 02/26/17 02:00 86 02/26/17 00:00 98.3 84 15 164/112 (129) 95 02/26/17 00:00 98.3 84 15 164/112 (129) 95 02/26/17 00:00 98 02/25/17 22:00 20 02/25/17 22:00 98 02/25/17 22:00 20 02/25/17 20:36 94 Nasal Cannula 5.00 02/25/17 20:17 18 02/25/17 20:00 98 02/25/17 19:00 96 Nasal Cannula 4.00 02/25/17 18:00 88 I/O 02/25/17 02/25/17 02/25/17 02/26/17 02/26/17 02/26/17 07:00 15:00 23:00 07:00 15:00 23:00 Intake Total 1400 ml 987 ml 844 ml Output Total 1180 ml 780 ml 2600 ml Balance 220 ml 207 ml -1756 ml Intake Oral 400 ml 240 ml IV Total 1000 ml 747 ml 844 ml Output Urine Total 1000 ml 550 ml 1800 ml Stool Total 100 ml 20 ml 400 ml Emesis 300 ml Drainage Total 80 ml 210 ml 100 ml Result Diagram: 02/25/1745002/25/17450 Objective Remarks Abdomen soft, mild distension, tender MONSE serosanguinous wounds clean stoma pink, functional Assessment and Plan Assessment and Plan D/C MONSE tomorrow Await improved blood pressure control for discharge Lyssa Diaz MD Feb 26, 2017 16:48
--- NOTE | 2017-02-26 17:13 | PD.WCN.NOT ---
Wound Consult Description: Consult placed for New Ostomy Teaching of RLQ per Dr Diaz Communicated with: Patient Recommendation: Patient not feeling well. Patient encouraged to write down any questions for next teaching session on Saturday02/27/17 Additional Information: Patient seen on [address] [place] [address] for ostomy assessment Ostomy Type: Ileostomy Surgeon: Lyssa Diaz MD Date of Surgery: Feb 22, 2017 Complete: Education materials (in patients room) Educated patient on: Getting rest and feeling better so that we can discuss the ileostomy and change the appliance soon Additional information Patient was not feeling well stating that his blood pressure is high and that he has an all over no good feeling. Pouch was noted to be more than half full and was emptied by radio script writer and left in bathroom for RN to document the amount of green/yellow liquid effluent. Patient has emesis basin at bedside that appears to have a small amount of green liquid in it as well. LINDA Stahl was not available at this time for notification. Ostomy appliance is intact without leaks and should be changed soon. Ruchi Rodriguez [facility] Feb 26, 2017 17:13
[2017-02-27] VITALS (8 sets, daily range): BP systolic 117–158; BP diastolic 78–98; PULSE 64–82; RESP 18–20; TEMP 97–98.4; O2SAT 93–97
[2017-02-27] MEDS: hydrALAZINE HCL 10 MG TAB PO SCH ×3 (04:55→22:16)
[2017-02-27] MEDS: MORPHINE SULFATE 30 MG/30 ML PCA IV SCH (04:56)
[2017-02-27] MEDS: PCA - TOTAL MG MORPHINE DELIVERED PER SHIFT SCH ×3 (05:28→22:00)
--- NOTE | 2017-02-27 08:34 | HHI.PR ---
Subjective Remarks POD#5 s/p robotic SHARON, robotic sigmoid resection, robotic partial cystectomy, diverting ileostomy more comfortable Still with hiccups Objective Vital Signs Date Time Temp Pulse Resp B/P (MAP) Pulse Ox O2 Delivery O2 Flow Rate FiO2 02/27/17 05:28 18 02/27/17 04:56 18 02/27/17 04:04 97.7 78 20 144/95 (111) 94 02/27/17 01:19 21 02/27/17 00:00 98.4 77 18 134/88 (103) 93 02/26/17 20:49 18 02/26/17 20:00 98.6 90 20 153/96 (115) 96 02/26/17 19:55 98.7 80 17 150/97 (114) 92 02/26/17 18:00 80 02/26/17 16:00 76 02/26/17 16:00 98.4 80 21 149/101 (117) 92 02/26/17 14:00 14 02/26/17 14:00 99 02/26/17 14:00 20 02/26/17 12:00 98.2 94 15 143/96 (112) 94 02/26/17 12:00 90 02/26/17 10:00 88 02/26/17 09:31 92 Nasal Cannula 5.00 I/O 02/26/17 02/26/17 02/26/17 02/27/17 02/27/17 02/27/17 07:00 15:00 23:00 07:00 15:00 23:00 Intake Total 844 ml 1992 ml 240 ml Output Total 2600 ml 1530 ml 340 ml Balance -1756 ml 462 ml -100 ml Intake Oral 120 ml 240 ml IV Total 844 ml 1872 ml Output Urine Total 1800 ml 900 ml Stool Total 400 ml 500 ml 250 ml Emesis 300 ml Drainage Total 100 ml 130 ml 90 ml # Voids 5 # Bowel Movements 0 Result Diagram: 02/25/17 0451 02/25/17 045 Objective Remarks Abdomen soft, no distension, tender MONSE serosanguinous wounds clean stoma pink, functional Assessment and Plan Assessment and Plan MONSE output increased check labs Lyssa Diaz MD Feb 27, 2017 08:34
[2017-02-27] MEDS: SODIUM CHLORIDE 0.9% FLUSH 5 ML FLUSH IVF SCH ×2 (09:00→21:00)
--- NOTE | 2017-02-27 09:55 | HHI.PR ---
Subjective Remarks in no distress. BP overall better. had some nausea. no fever. Objective Vitals Vital Signs Date Time Temp Pulse Resp B/P (MAP) Pulse Ox O2 Delivery O2 Flow Rate FiO2 02/27/17 09:42 95 02/27/17 08:00 97.0 81 19 139/86 (103) 95 02/27/17 05:28 18 02/27/17 04:56 18 02/27/17 04:04 97.7 78 20 144/95 (111) 94 02/27/17 01:19 21 02/27/17 00:00 98.4 77 18 134/88 (103) 93 02/26/17 20:49 18 02/26/17 20:00 98.6 90 20 153/96 (115) 96 02/26/17 19:55 98.7 80 17 150/97 (114) 92 02/26/17 18:00 80 02/26/17 16:00 76 02/26/17 16:00 98.4 80 21 149/101 (117) 92 02/26/17 14:00 14 02/26/17 14:00 99 02/26/17 14:00 20 02/26/17 12:00 98.2 94 15 143/96 (112) 94 02/26/17 12:00 90 02/26/17 10:00 88 I/O 02/26/17 02/26/17 02/26/17 02/27/17 02/27/17 02/27/17 06:59 14:59 22:59 06:59 14:59 22:59 Intake Total 844 ml 1992 ml 240 ml 120 ml Output Total 2600 ml 1530 ml 340 ml Balance -1756 ml 462 ml -100 ml 120 ml Intake Oral 120 ml 240 ml 120 ml IV Total 844 ml 1872 ml Output Urine Total 1800 ml 900 ml Stool Total 400 ml 500 ml 250 ml Emesis 300 ml Drainage Total 100 ml 130 ml 90 ml # Voids 5 # Bowel Movements 0 Result Diagram: 02/25/1745002/25/17450 Objective Remarks GENERAL: This is a well-nourished, well-developed patient, in no apparent distress. CARDIOVASCULAR: Regular rate and regular rhythm without murmurs, gallops, or rubs. RESPIRATORY: Clear to auscultation. Breath sounds equal bilaterally. No wheezes , rales, or rhonchi. GASTROINTESTINAL: Abdomen soft, non-tender, nondistended. Normal, active bowel sounds MUSCULOSKELETAL: Extremities without clubbing, cyanosis, or edema. NEURO: Alert & Oriented x4 to person, place, time, situation. Moves all ext x4 Medications and IVs Current Medications Lactated Ringer's 1,000 ml @ 30 mls/hr Q24H PRN IV SEE LABEL COMMENTS Last administered on 02/22/17 12:00; Start 02/22/17 at 12:15; Stop 02/22/17 at 23:15 ; Status DC Sodium Chloride 500 ml @ 30 mls/hr [id number] PRN IV SEE LABEL COMMENTS; Start at 12:15; Stop 02/22/17 at 23:15; Status DC Metoprolol Tartrate (Lopressor) 25 mg ELECTROSTATIC POWDER COATING TECHNICIAN PRN PO SEE LABEL COMMENTS; Start 02/22/17 at 12:15; Stop 02/22/17 at 23:15; Status DC Povidone Iodine (Betadine 5% Antisepsis Kit) 1 applic ELECTROSTATIC POWDER COATING TECHNICIAN PRN EACH NARE SEE LABEL COMMENTS Last administered on 02/22/17 12:00; Start 02/22/17 at 12:15 ; Stop 02/22/17 at 23:15; Status DC Chlorhexidine Gluconate (Chlorhexidine 2% Cloth) 3 pack ELECTROSTATIC POWDER COATING TECHNICIAN PRN TOPICAL SEE LABEL COMMENTS Last administered on 02/22/17 11:30; Start 02/22/17 at 12:15 ; Stop 02/22/17 at 23:15; Status DC Insulin Human Regular (NovoLIN R INJ) See Protocol Table ... ELECTROSTATIC POWDER COATING TECHNICIAN PRN SQ SEE PROTOCOL TABLE; Start 02/22/17 at 12:15; Stop 02/22/17 at 23:15; Status DC Cefazolin Sodium/ Dextrose 50 ml @ 100 mls/hr ELECTROSTATIC POWDER COATING TECHNICIAN IV Last administered on 02/22/17 20:01; Start 02/22/17 at 12:15; Stop 02/22/17 at 23:15; Status DC Metronidazole 100 ml @ 100 mls/hr ELECTROSTATIC POWDER COATING TECHNICIAN IV Last administered on 02/22/17 16:47; Start 02/22/17 at 12:15; Stop 02/22/17 at 23:15; Status DC Dextrose/Sodium Chloride 1,000 ml @ 125 mls/hr Q8H IV ; Start 02/22/17 at 12:15 ; Stop 02/22/17 at 23:15; Status DC Acetaminophen 100 ml @ As Directed STK-MED ONCE IV ; Start 02/22/17 at 12:33; Stop 02/22/17 at 12:34; Status DC Famotidine (Pepcid Inj) 20 mg STK-MED ONCE .ROUTE ; Start 02/22/17 at 12:33; Stop 02/22/17 at 12:34; Status DC Sugammadex Sodium (Bridion Inj) 200 mg STK-MED ONCE IV PUSH ; Start 02/22/17 at 22:46; Stop 02/22/17 at 22:47; Status DC Propofol 100 ml @ As Directed STK-MED ONCE .ROUTE ; Start 02/22/17 at 22:53; Stop 02/22/17 at 22:54; Status DC Potassium Chloride/Dextrose/ Sod Cl 1,000 ml @ 75 mls/hr [id number] IV Last administered on 02/26/17 22:06; Start 02/22/17 at 23:00 IV Flush (NS Flush) 2 ml UNSCH PRN IVF FLUSH AFTER USING IV ACCESS; Start 02/22 at 23:00 IV Flush (NS Flush) 2 ml BID IVF Last administered on 02/26/17 21:00; Start 02/22/17 at 23:00 Cefazolin Sodium 1000 mg/Sodium Chloride 100 ml @ 200 mls/hr Q6H IV Last administered on 02/23/17 17:27; Start 02/23/17 at 00:00; Stop 02/23/17 at 18:29 ; Status DC Metronidazole 100 ml @ 200 mls/hr Q8H IV Last administered on 02/23/17 17:27 ; Start 02/23/17 at 01:00; Stop 02/23/17 at 17:29; Status DC Miscellaneous Information (Post-op Orders (for Pharmacy)) STAT ONCE XX ; Start 02/22/17 at 23:00; Stop 02/22/17 at 23:32; Status DC Acetaminophen/ Hydrocodone Bitart ([place] 5-325 Mg) 1 tab Q6H PRN PO PAIN SCALE 1 TO 4; Start 02/22/17 at 23:00 Acetaminophen/ Hydrocodone Bitart ([place] 5-325 Mg) 2 tab Q6H PRN PO PAIN SCALE 5 TO 10 Last administered on 02/24/17 20:25; Start 02/22/17 at 23:00 Ketorolac Tromethamine (Toradol Inj) 15 mg Q6H IVP Last administered on 00:29; Start 02/23/17 at 00:00; Stop 02/25/17 at 00:00; Status DC Acetaminophen (Tylenol) 650 mg Q4H PRN PO Temperature > 101F; Start 02/22/17 at 23:00 Pantoprazole Sodium (Protonix Inj) 40 mg DAILY IVP Last administered on 09:45; Start 02/23/17 at 09:00 Ondansetron HCl (Zofran Inj) 4 mg Q6H PRN IV NAUSEA Last administered on 13:27; Start 02/22/17 at 23:00 Enalaprilat (Vasotec Inj) 1.25 mg Q4H PRN IV SYS BP GREATER THAN 160 MMHG Last administered on 02/26/17 00:58; Start 02/22/17 at 23:00 Enalaprilat (Vasotec Inj) 2.5 mg Q6H PRN IV SYS BP GREATER THAN 160 MMHG Last administered on 02/25/17 12:10; Start 02/22/17 at 23:00 Benzocaine/Menthol (Chloraseptic Yoav) 1 lozenge UNSCH PRN BUCCAL SORE THROAT; Start 02/22/17 at 23:00 Potassium Chloride 100 ml @ 50 mls/hr UNSCH PRN IV POTASSIUM 3 TO 3.5; Start 02/22/17 at 23:00 Potassium Chloride 100 ml @ 25 mls/hr UNSCH PRN IV POTASSIUM LESS THAN 3; Start 02/22/17 at 23:00 Heparin Sodium (Porcine) (Heparin Inj) 5,000 units Q12H SQ Last administered on 02/26/17 20:49; Start 02/23/17 at 22:00; Status Future hold Naloxone HCl (Narcan Inj) 0.4 mg UNSCH PRN IV RESPIRATORY RATE LESS THAN 10; Start 02/22/17 at 23:00 Diphenhydramine HCl (Benadryl Inj) 25 mg Q6H PRN IV PUSH ITCHING; Start at 23:00 Morphine Sulfate (Morphine 1 Mg/ ml WAXING MACHINE OPERATOR HELPER) 30 mg UNSCH IV Last administered on 04:56; Start 02/22/17 at 23:00 WAXING MACHINE OPERATOR HELPER Dosage Infused (Pha) 1 Q8HR .XX Last administered on 02/27/17 05:28; Start 02/22/17 at 23:00 Amlodipine Besylate (Norvasc) 10 mg DAILY PO Last administered on 02/26/17 09 :46; Start 02/23/17 at 09:00 Metoprolol Tartrate (Lopressor) 50 mg BID PO Last administered on 02/26/17 20 :48; Start 02/23/17 at 09:00 Lisinopril (Prinivil) 40 mg DAILY PO Last administered on 02/26/17 09:45; Start 02/23/17 at 09:00 Miscellaneous Information ALL NURSING DEPARTME... UNSCH PRN .XX SEE LABEL COMMENTS; Start 02/22/17 at 23:45; Stop 02/23/17 at 23:44; Status DC Lactated Ringer's 500 ml @ 500 mls/hr ONCE ONCE IV ; Start 02/23/17 at 01:00; Stop 02/23/17 at 01:59; Status DC Furosemide (Lasix Inj) 20 mg BID@09,18 IV PUSH Last administered on 02/26/17 09:44; Start 02/24/17 at 18:00; Stop 02/26/17 at 17:59; Status DC Labetalol HCl (Trandate Inj) 20 mg ONCE ONCE IV Last administered on 15:38; Start 02/24/17 at 15:30; Stop 02/24/17 at 15:31; Status DC Hydralazine HCl (Apresoline Inj) 10 mg ONCE STAT IV Last administered on 16:34; Start 02/24/17 at 16:20; Stop 02/24/17 at 16:21; Status DC Hydralazine HCl (Apresoline Inj) 10 mg Q4H PRN IV DBP > 100 Last administered on 02/26/17 09:44; Start 02/24/17 at 19:30 Hydralazine HCl (Apresoline) 10 mg Q8HR PO Last administered on 02/27/17t 04: 55; Start 02/25/17 at 17:30 A/P Assessment and Plan A/P - hypertension-overall better controlled. continue curent regimen for now; lisinopril, metoprolol and norvasc, hydralazine- continue to monitor and adjust the regimen as needed- -s/p sigmoid resection and ileostomy- management per colorectal surgery -DVT prophylaxis with subq Heparin Brigette Marcos MD Feb 27, 2017 09:55
[2017-02-27] MEDS: PANTOPRAZOLE SODIUM 40 MG VIAL IVP SCH (10:20)
[2017-02-27] MEDS: METOPROLOL TARTRATE 50 MG TAB PO SCH ×2 (10:20→22:16)
[2017-02-27] MEDS: LISINOPRIL 20 MG TAB PO SCH (10:21)
[2017-02-27] MEDS: HEPARIN SODIUM - SQ 10,000 UNITS/ML VIAL SQ SCH ×2 (10:21→22:17)
[2017-02-27] MEDS: D5-NS + KCL 20 MEQ INJ 1,000 ML IV SCH ×2 (11:43→23:46)
[2017-02-27 12:18] LABS: AUTOMATED NEUTROPHIL # 6.8 TH/MM3 (1.8-7.7); BASOPHIL % 0.1 % (0.0-2.0); EOSINOPHIL # 0.1 TH/MM3 (0-0.4); HEMATOCRIT 40.3 % (39.0-51.0); HEMO FLAGS DIFF FINAL; LYMPHOCYTE # 0.9 TH/MM3 (1.0-4.8); MEAN CELL VOLUME 94.6 FL (80.0-100.0); MEAN CORPUSCULAR HEMOGLOBIN 31.6 PG (27.0-34.0); MEAN CORPUSCULAR HGB CONC 33.4 % (32.0-36.0); MONO % 15.9 % (0.0-8.0); PLATELET COUNT 286 TH/MM3 (150-450); RED BLOOD COUNT 4.26 MIL/MM3 (4.50-5.90); RED CELL DISTRIBUTION WIDTH 15.3 % (11.6-17.2); WHITE BLOOD COUNT 9.4 TH/MM3 (4.0-11.0)
[2017-02-27 12:42] LABS: BICARBONATE 21.7 MEQ/L (21.0-32.0); MAGNESIUM 1.5 MG/DL (1.5-2.5); POTASSIUM 4.1 MEQ/L (3.5-5.1)
[2017-02-27] MEDS: ENALAPRILAT 1.25 MG/ML VIAL IV PRN (13:30)
--- NOTE | 2017-02-27 16:36 | HHI.PR ---
Subjective Patient symptoms today Postoperative day #5 Without complaints Denies hematuria Objective Vital Signs Vital Signs Date Time Temp Pulse Resp B/P (MAP) Pulse Ox O2 Delivery O2 Flow Rate FiO2 02/27/17 12:00 97.2 64 19 117/78 (91) 97 02/27/17 09:42 95 02/27/17 08:00 97.0 81 19 139/86 (103) 95 02/27/17 05:28 18 02/27/17 04:56 18 02/27/17 04:04 97.7 78 20 144/95 (111) 94 02/27/17 01:19 21 02/27/17 00:00 98.4 77 18 134/88 (103) 93 02/26/17 20:49 18 02/26/17 20:00 98.6 90 20 153/96 (115) 96 02/26/17 19:55 98.7 80 17 150/97 (114) 92 02/26/17 18:00 80 Intake & Output 02/27/17 02/27/17 06:59 18:59 Intake Total 1240 ml 120 ml Output Total 410 ml 75 ml Balance 830 ml 45 ml Intake Oral 240 ml 120 ml IV Total 1000 ml Stool Total 250 ml Drainage Total 160 ml 75 ml # Voids 5 # Bowel Movements 0 Result Diagram: 02/27/17 1114 02/27/17 111 Other Results Discussed bladder pathology results with patient. Essentially the pathology report was consistent with a low-grade noninvasive urothelial cancer with negative surgical margins. Objective Remarks Abdomen soft, moderately distended, bowel sounds present Bladder not distended Acuna catheter draining more urine Extremities well-perfused, nontender Medications and IVs Current Medications Medications (Trade) Dose Ordered Sig/Juan Luis Route Start Time Stop Time Status Last Admin Potassium Chloride/Dextrose/ Sod Cl 1,000 ml @ 75 mls/hr [id number] IV 02/22/17 23:00 02/27/17 11:43 (NS Flush) 2 ml UNSCH PRN IVF 02/22/17 23:00 (NS Flush) 2 ml BID IVF 02/22/17 23:00 02/26/17 21:00 ([place] 5-325 Mg) 1 tab Q6H PRN PO 02/22/17 23:00 ([place] 5-325 Mg) 2 tab Q6H PRN PO 02/22/17 23:00 02/24/17 20:25 (Tylenol) 650 mg Q4H PRN PO 02/22/17 23:00 (Protonix Inj) 40 mg DAILY IVP 02/23/17 09:00 02/27/17 10:20 (Zofran Inj) 4 mg Q6H PRN IV 02/22/17 23:00 02/26/17 13:27 (Vasotec Inj) 1.25 mg Q4H PRN IV 02/22/17 23:00 02/26/17 00:58 (Vasotec Inj) 2.5 mg Q6H PRN IV 02/22/17 23:00 02/25/17 12:10 (Chloraseptic Yoav) 1 lozenge UNSCH PRN BUCCAL 02/22/17 23:00 Potassium Chloride 100 ml @ 50 mls/hr UNSCH PRN IV 02/22/17 23:00 Potassium Chloride 100 ml @ 25 mls/hr UNSCH PRN IV 02/22/17 23:00 (Heparin Inj) 5,000 units Q12H SQ 02/23/17 22:00 Future hold 02/27/17 10:21 (Narcan Inj) 0.4 mg UNSCH PRN IV 02/22/17 23:00 (Benadryl Inj) 25 mg Q6H PRN IV PUSH 02/22/17 23:00 (Morphine 1 Mg/ ml ASSEMBLER INSTALLER GENERAL) 30 mg UNSCH IV 02/22/17 23:00 02/27/17 04:56 ASSEMBLER INSTALLER GENERAL Dosage Infused (Pha) 1 Q8HR .XX 02/22/17 23:00 02/27/17 14:00 (Norvasc) 10 mg DAILY PO 02/23/17 09:00 02/27/17 10:21 (Lopressor) 50 mg BID PO 02/23/17 09:00 02/27/17 10:20 (Prinivil) 40 mg DAILY PO 02/23/17 09:00 02/27/17 10:21 (Apresoline Inj) 10 mg Q4H PRN IV 02/24/17 19:30 02/26/17 09:44 (Apresoline) 10 mg Q8HR PO 02/25/17 17:30 02/27/17 13:29 Assessment and Plan Assessment and Plan Urologic impression: #1 status post robot-assisted laparoscopic partial cystectomy #2 pathology demonstrated low-grade papillary noninvasive urothelial cancer with negative margins Plan: #1 continue Acuna catheter to gravity drainage #2 patient to have a cystogram next Saturday and likely removal of the Acuna catheter the same day at my office #3 discussed need for follow up cystoscopic evaluation in approximately 6 months time Collin Bowden MD Feb 27, 2017 16:36
--- NOTE | 2017-02-27 17:57 | PD.WCN.NOT ---
Wound Consult Description: Consult placed for New Ostomy Teaching of RLQ per Dr Diaz Communicated with: Patient Recommendation: Patient feeling better today. Patient encouraged to write down any questions for next teaching session on 02/28/17 Additional Information: Patient seen on [address] [place] [address] for ostomy teaching and ileostomy assessment Ostomy Type: Ileostomy Surgeon: Lyssa Diaz MD Date of Surgery: Feb 22, 2017 Complete: Education materials (in patients room) Educated patient on: Diet and Hydration Changing the appliance Stoma appearance Emptying the pouch of effluent when 1/3-1/2 full Assessing the barrier for breakdown and leaks Opening and closing pouch Additional information Patient seen on [address] [place] [address] for ileostomy assessment. Right lower side abdomen noted with ileostomy moderately protruding with lumen noted @5 o'clock. Stoma is red, moist, round, functioning with liquid green effluent noted to pouch. Stoma measures 1 1/8" inches. Appliance in size 2 1/4" or 1 3/4" may be used with next barrier change. Nutritional education was given. Patient states that the Dr is supposed to change the bag. When asked when the patient states he does not know, maybe tonight or tomorrow. It was explained to the patient that if the Dr does not change the pouch and barrier tonight that play writer would assist patient in changing it out first thing tomorrow morning. The barrier was intact without leaks and breaking down evenly. The pouch was soiled and replaced by play writer. Ruchi Rodriguez [facility] Feb 27, 2017 17:57
[2017-02-28] VITALS (8 sets, daily range): BP systolic 140–167; BP diastolic 88–104; PULSE 73–85; RESP 15–20; TEMP 97.3–98.4; O2SAT 93–95
[2017-02-28] MEDS: MORPHINE SULFATE 30 MG/30 ML PCA IV SCH (03:42)
[2017-02-28] MEDS: PCA - TOTAL MG MORPHINE DELIVERED PER SHIFT SCH (06:00)
[2017-02-28] MEDS: hydrALAZINE HCL 10 MG TAB PO SCH ×2 (06:21→20:55)
[2017-02-28] MEDS: METOPROLOL TARTRATE 50 MG TAB PO SCH ×2 (08:55→20:56)
[2017-02-28] MEDS: LISINOPRIL 20 MG TAB PO SCH (08:55)
[2017-02-28] MEDS: HEPARIN SODIUM - SQ 10,000 UNITS/ML VIAL SQ SCH ×2 (08:56→20:55)
[2017-02-28] MEDS: PANTOPRAZOLE SODIUM 40 MG VIAL IVP SCH (08:59)
[2017-02-28] MEDS: SODIUM CHLORIDE 0.9% FLUSH 5 ML FLUSH IVF SCH ×2 (09:06→20:56)
--- NOTE | 2017-02-28 10:22 | PD.WCN.NOT ---
Wound Consult Description: Consult placed for New Ostomy Teaching of RLQ per Dr Diaz Communicated with: Patient Payton,REMINGTON Recommendation: Patient is nauseous and using green emesis bag at bedside. Patient encouraged to ambulate and sip liquids and take medications slowly. Additional Information: Patient seen on [address] [place] [address] for Ostomy assessment and appliance change. Ostomy Type: Ileostomy Surgeon: Lyssa Diaz MD Date of Surgery: Feb 22, 2017 Complete: Education materials (in patients room) Educated patient on: Changing appliance every 3-5 days Removing barrier using adhesive removal wipes to protect skin Peristomal skin care with water only Stoma oval size 7/8" and appearance Correct size appliance to use 1 3/4" Lumen noted at 6 o'clock Sutures will dissolve on their own Removing adhesive tape and placing barrier around stoma Holding hand over pouch and barrier to warm for a couple minutes to activate polymers Emptying pouch when 1/3-1/2 full Additional information Patient seen on [address] [place] [address] for ostomy assessment and barrier change. Barrier was removed using adhesive removal wipes while patient held mirror for visualization. Peristomal skin was cleansed using soft cloths and water only. Stoma was moderately protruding, red, moist, oval, lumen noted at 6 o'clock, functioning with green liquid noted to pouch, and measured 7/8". Mucocutaneous junction is noted with sutures circumferentially. Peristomal skin was minimally discolored and moist. This area was allowed to dry thoroughly before applying new barrier size 1 3/4". Patient held his hand over the appliance to warm and activate polymers for adhesion. Ruchi Rodriguez [facility] Feb 28, 2017 10:22
--- NOTE | 2017-02-28 13:25 | HHI.PR ---
Subjective Remarks Follow-up hypertension. The patient states that he feels better today. He wants to go home. He has some nausea. Objective Vitals Vital Signs Date Time Temp Pulse Resp B/P (MAP) Pulse Ox O2 Delivery O2 Flow Rate FiO2 02/28/17 11:46 97.7 77 15 163/103 (123) 95 02/28/17 08:01 98.4 81 16 146/97 (113) 93 02/28/17 06:00 98.0 84 18 156/104 (121) 93 02/28/17 06:00 18 02/28/17 03:42 18 02/28/17 00:00 98.0 85 20 140/88 (105) 94 02/27/17 22:00 20 02/27/17 21:15 18 02/27/17 20:00 98.1 82 20 158/98 (118) 93 02/27/17 16:00 98.4 75 18 147/95 (112) 95 I/O 02/27/17 02/27/17 02/27/17 02/28/17 02/28/17 02/28/17 07:00 15:00 23:00 07:00 15:00 23:00 Intake Total 240 ml 120 ml 1860 ml 817 ml Output Total 340 ml 75 ml 900 ml 600 ml Balance -100 ml 45 ml 960 ml 217 ml Intake Oral 240 ml 120 ml 960 ml 240 ml IV Total 900 ml 577 ml Output Urine Total 800 ml 450 ml Stool Total 250 ml 0 ml Drainage Total 90 ml 75 ml 100 ml 150 ml # Voids 5 # Bowel Movements 0 Result Diagram: 02/27/17 1114 02/27/17 1114 Objective Remarks General: No acute distress. Heart: Regular rate and rhythm. No murmur. Lungs: Clear to auscultation bilaterally. No wheezes, rales, or rhonchi. Breathing is nonlabored. Abdomen: Soft, mildly tender to palpation diffusely, nondistended. Ileostomy. Extremities: No lower extremity edema. Psych: Alert and oriented. Urinary Catheter: Yes Assessment to: Continue Acuna insert reason: Surgical/Invasive Proced Vascular Central Line Catheter: No A/P Assessment and Plan 1. Hypertension: Blood pressure remains elevated. Continue lisinopril, metoprolol, Norvasc. Increase hydralazine. 2. Status post sigmoid resection with ileostomy, partial cystectomy: Management per colorectal surgery, urology. 3. DVT prophylaxis: Heparin. Gerardo Potter MD Feb 28, 2017 13:25
[2017-02-28] MEDS: D5-NS + KCL 20 MEQ INJ 1,000 ML IV SCH (14:08)
--- NOTE | 2017-02-28 16:44 | HHI.PR ---
Subjective Remarks POD#6 s/p robotic SHARON, robotic sigmoid resection, robotic partial cystectomy, diverting ileostomy No further nausea Wants to go home Objective Vital Signs Date Time Temp Pulse Resp B/P (MAP) Pulse Ox O2 Delivery O2 Flow Rate FiO2 02/28/17 16:00 97.3 76 20 167/97 (120) 95 02/28/17 12:10 142/93 (109) 02/28/17 12:10 98.1 76 17 141/91 (108) 95 02/28/17 11:46 97.7 77 15 163/103 (123) 95 02/28/17 08:01 98.4 81 16 146/97 (113) 93 02/28/17 06:00 98.0 84 18 156/104 (121) 93 02/28/17 06:00 18 02/28/17 03:42 18 02/28/17 00:00 98.0 85 20 140/88 (105) 94 02/27/17 22:00 20 02/27/17 21:15 18 02/27/17 20:00 98.1 82 20 158/98 (118) 93 I/O 02/27/17 02/27/17 02/27/17 02/28/17 02/28/17 02/28/17 07:00 15:00 23:00 07:00 15:00 23:00 Intake Total 240 ml 120 ml 1860 ml 817 ml Output Total 340 ml 75 ml 900 ml 600 ml 330 ml Balance -100 ml 45 ml 960 ml 217 ml -330 ml Intake Oral 240 ml 120 ml 960 ml 240 ml IV Total 900 ml 577 ml Output Urine Total 800 ml 450 ml Stool Total 250 ml 0 ml 150 ml Drainage Total 90 ml 75 ml 100 ml 150 ml 180 ml # Voids 5 # Bowel Movements 0 Result Diagram: 02/27/17 1114 02/27/17 1114 Objective Remarks Abdomen soft, no distension, tender MONSE serosanguinous wounds clean stoma pink, functional Assessment and Plan Assessment and Plan D/C MONSE Stop IVF, CORK GRINDER Regular diet Hopefully home soon Lyssa Diaz MD Feb 28, 2017 16:44
[2017-03-01] VITALS: BP 146/97; PULSE 75; RESP 18; TEMP 98.4; O2SAT 96
[2017-03-01] MEDS: hydrALAZINE HCL 10 MG TAB PO SCH ×3 (06:00→16:18)
[2017-03-01 06:13] VITALS: BP 130/92
[2017-03-01 08:05] VITALS: BP 137/90; PULSE 75; RESP 16; TEMP 96.8; O2SAT 94
[2017-03-01] MEDS: SODIUM CHLORIDE 0.9% FLUSH 5 ML FLUSH IVF SCH (09:00)
[2017-03-01] MEDS: METOPROLOL TARTRATE 50 MG TAB PO SCH (10:08)
[2017-03-01] MEDS: LISINOPRIL 20 MG TAB PO SCH (10:08)
[2017-03-01] MEDS: HEPARIN SODIUM - SQ 10,000 UNITS/ML VIAL SQ SCH (10:10)
[2017-03-01] MEDS: PANTOPRAZOLE SODIUM 40 MG VIAL IVP SCH (10:12)
[2017-03-01] MEDS: ACETAMINOPHEN/HYDROcodone 325 MG/5 MG TAB PO PRN (10:15)
[2017-03-01 11:22] VITALS: BP 134/87; PULSE 73; RESP 15; TEMP 98.7; O2SAT 96
--- NOTE | 2017-03-01 11:52 | HHI.PR ---
Subjective Remarks Follow-up hypertension. The patient reports mild abdominal pain today. No nausea or vomiting. Objective Vitals Vital Signs Date Time Temp Pulse Resp B/P (MAP) Pulse Ox O2 Delivery O2 Flow Rate FiO2 03/01/17 11:22 98.7 73 15 134/87 (103) 96 03/01/17 08:05 96.8 75 16 137/90 (106) 94 03/01/17 06:13 130/92 (105) 03/01/17 00:00 98.4 75 18 146/97 (113) 96 02/28/17 20:00 98.3 73 19 147/94 (111) 95 02/28/17 17:43 95 02/28/17 16:00 97.3 76 20 167/97 (120) 95 02/28/17 12:10 142/93 (109) 02/28/17 12:10 98.1 76 17 141/91 (108) 95 I/O 02/28/17 02/28/17 02/28/17 03/01/17 03/01/17 03/01/17 07:00 15:00 23:00 07:00 15:00 23:00 Intake Total 817 ml 750 ml 120 ml Output Total 600 ml 330 ml 900 ml 800 ml 100 ml Balance 217 ml -330 ml -150 ml -800 ml 20 ml Intake Oral 240 ml 750 ml 120 ml IV Total 577 ml Output Urine Total 450 ml 900 ml 350 ml Stool Total 150 ml 0 ml 450 ml 100 ml Drainage Total 150 ml 180 ml Result Diagram: 02/27/17 1114 02/27/17 1114 Objective Remarks General: No acute distress. Heart: Regular rate and rhythm. No murmur. Lungs: Clear to auscultation bilaterally. No wheezes, rales, or rhonchi. Breathing is nonlabored. Abdomen: Soft, mildly tender to palpation diffusely, nondistended. Ileostomy. Extremities: No lower extremity edema. Psych: Alert and oriented. Urinary Catheter: Yes Assessment to: Continue Acuna insert reason: Surgical/Invasive Proced Vascular Central Line Catheter: No A/P Assessment and Plan 1. Hypertension: Blood pressure control improved. Continue lisinopril, metoprolol, Norvasc, hydralazine. 2. Status post sigmoid resection with ileostomy, partial cystectomy: Management per colorectal surgery, urology. 3. DVT prophylaxis: Heparin. Discharge Planning Per colorectal surgery. Gerardo Potter MD Mar 01, 2017 11:52
[2017-03-01] MEDS ORDERED: HYDR-3799 PO (11:55)
[2017-03-01 14:24] VITALS: O2SAT 93
--- NOTE | 2017-03-01 15:13 | PD.WCN.NOT ---
Wound Consult Description: Consult placed for New Ostomy Teaching of RLQ per Dr Diaz Communicated with: LINDA Stubbs Patient Patient significant other Case Management Recommendation: Patient is lying in bed with significant other at bedside. Patient is c/o burning sensations within his abdomen. Recommended to patient that pouch be emptied when 1/3-1/2 full Additional Information: Patient seen on [address] [place] [address] for ostomy assessment and appliance change Ostomy Type: Ileostomy Surgeon: Lyssa Diaz MD Date of Surgery: Feb 22, 2017 Complete: Starter kit (Sent via 2 day air from [facility]), Education materials ( in patients room), Rx (left on chart), Other (a box of 5 ileostomy appliances in size 1 3/4" ordered from [facility] for patient to go home with) Educated patient on: When to empty pouch When/how to change appliance Additional information Patient seen on [address] [place] [address] for ostomy assessment. Ileostomy is noted to right side abdomen with soiled wafer and pouch not intact with leak noted @6 o'clock. Entire appliance had been changed by sports book writer yesterday 02/28/17. Barrier was removed from patient using adhesive removal wipes. Stoma was visualized and measured 1" oval. Stoma is moderately protruding, red, moist, lumen noted @6 o' clock and functioning with ~10ml of green liquid effluent noted in removed pouch. Mucocutaneous junction is noted with sutures circumferentially otherwise unremarkable. Peristomal skin is macerated and house registry rn in color extending from mucocutaneous junction outwards ~1cm circumferentially. Peristomal skin was cleansed with water and soft cloths and pat dry. Wafer in size 1 3/4" was obtained and applied. Clear pouch attached to flange and pouch was closed by patient significant other at bedside who observed the appliance removal and application. Patient then held his hand over the barrier and pouch to warm the appliance to enhance the adhesive process. Ruchi Rodriguez [facility] Mar 01, 2017 15:13
[2017-03-01 15:26] VITALS: BP 128/86; PULSE 70; RESP 16; TEMP 97.9; O2SAT 95
--- NOTE | 2017-03-01 17:20 | HHI.PR ---
Subjective Remarks POD#7 s/p robotic SHARON, robotic sigmoid resection, robotic partial cystectomy, diverting ileostomy Wants to go home Objective Vital Signs Date Time Temp Pulse Resp B/P (MAP) Pulse Ox O2 Delivery O2 Flow Rate FiO2 03/01/17 15:26 97.9 70 16 128/86 (100) 95 03/01/17 14:24 93 21 03/01/17 11:22 98.7 73 15 134/87 (103) 96 03/01/17 08:05 96.8 75 16 137/90 (106) 94 03/01/17 06:13 130/92 (105) 03/01/17 00:00 98.4 75 18 146/97 (113) 96 02/28/17 20:00 98.3 73 19 147/94 (111) 95 02/28/17 17:43 95 I/O 02/28/17 02/28/17 02/28/17 03/01/17 03/01/17 03/01/17 07:00 15:00 23:00 07:00 15:00 23:00 Intake Total 817 ml 750 ml 120 ml Output Total 600 ml 330 ml 900 ml 800 ml 100 ml 150 ml Balance 217 ml -330 ml -150 ml -800 ml 20 ml -150 ml Intake Oral 240 ml 750 ml 120 ml IV Total 577 ml Output Urine Total 450 ml 900 ml 350 ml Stool Total 150 ml 0 ml 450 ml 100 ml 150 ml Drainage Total 150 ml 180 ml Result Diagram: 02/27/17 1114 02/27/17 1114 Objective Remarks Abdomen soft, no distension, tender MONSE serosanguinous wounds clean stoma pink, functional Assessment and Plan Assessment and Plan Home today Followup with PCP next week re BP Followup with Dr. Bowden 2 weeks Followup with me 3 weeks Lyssa Diaz MD Mar 01, 2017 17:20
[2017-03-01] MEDS ORDERED: HYDR-3516 PO (17:22)
[2017-03-02] MEDS ORDERED: PANTOPRAZOLE SOD 40 MG DELAYED RELEASE TAB PO SCH (09:00)
--- NOTE | 2017-03-02 15:52 | MP ---
cc: BHUMI DIAZ MD DATE OF SURGERY: 03/02/2017. PREOPERATIVE DIAGNOSIS: 1. Colovesical fistula. 2. 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 POSTOPERATIVE DIAGNOSIS: Colovesical fistula with suspected diverticulitis. OPERATIVE PROCEDURE PERFORMED: 1. Extensive robotic lysis of adhesions. 2. Robotic low anterior resection. 3. Robotic diverting ileostomy. 4. Partial cystectomy with bladder closure. SURGEON: Lyssa Diaz M.D. INDICATIONS FOR THE PROCEDURE: The patient is a 62-year-old male who has a history of what appeared to be chronic diverticulitis with a colovesical fistula. On colonoscopy one day prior to admission, he was noted to have what appeared to be a mass-like effect in the sigmoid colon which I was unable to pass. OPERATIVE FINDINGS: A large phlegmon of the sigmoid to the bladder dome with a very hard knot of tissue between the sigmoid colon and bladder. However, on opening the specimen, there was no sign of any mucosal growth or tumor. His liver was visibly normal. DESCRIPTION OF THE PROCEDURE IN DETAIL: The patient was brought to the operating room and placed in the supine position. After induction of general anesthesia, the patient was placed in Guzman stirrups and all bony prominences were carefully padded. The skin of the anterior abdominal wall as well as perineal area was then prepped and draped in the usual sterile fashion. Dr. Bowden then came in and performed cystoscopy with placement of bilateral ureteral catheters, please see his operative note for details. The camera port was then placed just to the right and above the umbilicus and this was a 10/12 port and was placed under direct vision using a laparoscope. CO2 insufflation was then undertaken and a brief abdominal survey was performed. There was immediately noted to be a large phlegmonous mass attaching the sigmoid colon to the dome of the bladder. Other than that, there was nothing noted that would preclude the robotic approach. The remainder of the ports were placed as follows: The #1 port was placed just inside the right anterior superior iliac spine. The five assist port was placed just under the costal margin equidistant from the #1 camera port. The #3 port a long da Eloy was placed in the left anterior axillary line in line with the umbilicus and the #2 port was placed two fingerbreadths above the umbilical line in the left midclavicular line. The patient was hydroplaned with the head down and to the right and was noted to have some adherence of small bowel down into the tumor. We were able to pull most of the small bowel up and out of the pelvis. However at this point, I decided that the dissection would be simpler with the robot. The robot was then docked and a slow and tedious dissection was begun of the pelvis. Eventually we were able to bring the small bowel up and out of the pelvis. The mesentery on the right was then scored and dissection was continued in the posterior plane until the left ureter was clearly identified and swept away from the specimen. All of his tissues throughout the pelvis were indurated, inflamed and bled easily. Eventually with much slow tedious dissection, I was able to dissect out of the inferior mesenteric vessels. These were dissected free circumferentially and doubly clamped proximally and distally and divided after visualizing the left ureter. This allowed dissection of the posterior plane and I did continue dissection in the posterior plane down to the level of the distal rectum and attempted up and around the right side. The lateral peritoneal attachments of the descending colon and the sigmoid colon were dissected free and being careful to continually visualize the left ureter. Dissection continued down onto the phlegmon and this was slowly and painstakingly dissected free from the bladder edge gradually peeling off the hard mass that was adherent to the bladder edge. Eventually we did finally have mobility of the remainder of the sigmoid off of the bladder. The dissection continued down the left pelvic sidewall down into the mid to distal rectum and continued up and around anteriorly into the right side. At this point, the bladder was evaluated and I felt that there was a good chance this was a cancer and resection of the fistula tract would be prudent so Dr. Bowden came in and performed a partial cystectomy with closure of the bladder defect, please see his operative note for details. The rectum was then gently pulled up and out of the pelvis and dissection was continued down onto the distal rectum. A site was chosen for division of the rectum and the mesentery just below the peritoneal reflection. The mesentery at this level was divided using the harmonic scalpel and the [employer] endostapler was placed across the bowel at this level. This was closed, held 30 seconds fired, and removed. The stapler line looked intact. The EEA stapler was advanced through the anus and up to the rectal stump and lay in a relatively good position but the resection was quite low due to all the inflammation. The descending colon was then carefully dissected free from the posterior peritoneum and up the left lateral sidewall. Eventually we had mobility of the descending colon and proximal sigmoid and these came down nicely to the rectal stump without tension. The robot was then undocked. An 8 to 10 cm incision was initially made in the suprapubic area, although it was necessary to enlarge this in order to get the tumor out to about a 12-15 cm incision. Using electrocautery, dissection was carried down to the fascia of the anterior abdominal wall which was split the length of the skin incision. The medial fibers of the rectus abdominis muscle were divided. The peritoneum/ posterior fascia was then divided the length of the skin incision as well. A wound protector was placed and the proximal stapled end of the bowel was brought up with the tumor but it was quite difficult to get what appeared to hard tumor out through the incision. Eventually we were able to do this. A site was chosen proximal on the bowel where it was pink and healthy. The mesentery at this level was serially divided and ligated using #0 Vicryl ties. The anvil from the EEA stapler was placed in the cut end of bowel and the previously placed pursestring suture was then secured. The stapler was then advanced through the rectum through the anus up to the rectal stump. The spike was advanced just anterior to the staple line. The anvil was into the spike being careful that the bowel was not twisted. The stapler was closed, held for thirty seconds, fired and removed thus creating an anterior enterotomy. The resulting enterotomy appeared pink and healthy circumferentially and a small amount warm normal saline was placed in the pelvis. Air was insufflated into the rectum until gentle tension was noted in the anastomosis with no sign of any leakage noted. At this point, however due to the distal nature of the anastomosis as well as the very difficult dissection and the large amounts of inflammation, I did feel that it was prudent to proceed with just a diversion. A site was chosen on the small bowel where it would come up nicely without tension and an opening in the mesentery was made at that level. A site was chosen for the stoma one third away from the umbilicus to the right anterior superior iliac spine at 1.5 cm an ellipse of skin was removed sharply and the preperitoneal fat was removed using electrocautery. A 1.5 cm incision was made in the anterior fascia and the fibers of the rectus abdominis muscle were split. The posterior fascia was divided the length of this anterior fascia incision. The loop of small bowel was brought up and out through the stomal aperture being sure that the distal bowel was in the inferior position. The fascia at the suprapubic incision was then closed in a double layered fashion using #1 PDS and the wound was filled with normal saline. The skin was closed in a running subcuticular fashion using 3-0 Vicryl. Air was insufflated into the peritoneal cavity again and the 10/12 trocar sites were closed using the crossbow device and 0 Vicryl suture. These were placed but not tied until the area was desufflated to the extent possible. A small amount of Jairo was then dusted into the pelvis as well. Air was desufflated to the extent possible. The stoma was matured in a typical Beckie fashion using 3-0 Vicryl. The trocar sites were closed in an interrupted subcuticular fashion using 3-0 Vicryl. Steri-Strips and sterile dressings were applied. All sponge, needle and sponge counts were correct and the patient was returned to the post anesthesia care in stable condition. MD LAQUITA Vargas/DEANNA /2:30 AM /3:02 PM
--- NOTE | 2017-03-04 08:14 | MD ---
cc: FARRUKH BULLARD M.D. ADMISSION DATE: 02/22/2017 DISCHARGE DATE: 03/01/2017 PROCEDURES: 1. Cystoscopy with placement of bilateral ureteral catheters. 2. Robotic extensive lysis of adhesions with takedown of splenic flexure and robotic low anterior resection with diverting ileostomy. CONSULTATIONS: Medicine. BRIEF HISTORY: The patient is a 61-year-old male who had been noted to have what appeared to be diverticulitis with colovesical fistula on his preoperative colonoscopy; however, there was some question that he could have had a cancer. HOSPITAL COURSE: He was admitted to the hospital on the February after an outpatient bowel prep where he underwent the above-named procedures. He was taken to the hospital on February 22, 2017 after an outpatient bowel prep where he underwent the above-named procedures. Intraoperative findings included no evidence of colon cancer. Postoperatively he did well with rapid return of bowel and bladder function. However, he had significant problems with his blood pressure. Consultation to medicine was placed and they were eventually able to get his blood pressure under better control. He was discharged to home with instructions to follow up with myself, Dr. Bowden and his primary care physician for his blood pressure. Of note, the final pathology did show a very small foci of urothelial cell cancer. MD LAQUITA Vargas/DEANNA /5:24 PM /8:10 AM
== END 2017-03-01 18:55 | disposition home or self-care (01) | DRG 330 ==
LOC: HSDI 02-22 10:53 → N03A 02-23 01:15 → N07B 02-26 20:30
PROVIDERS: ADMIT Colon & Rectal Surgery; ATTEND Colon & Rectal Surgery
PROC: 0DTN0ZZ Resection of Sigmoid Colon, Open Approach (ICD-10-PCS; 2017-02-22)
PROC: 0DBP0ZZ Excision of Rectum, Open Approach (ICD-10-PCS; 2017-02-22)
PROC: 0TBB0ZZ Excision of Bladder, Open Approach (ICD-10-PCS; 2017-02-22)
PROC: 8E0W4CZ Robotic Assisted Procedure of Trunk Region, Percutaneous Endoscopic Approach (ICD-10-PCS; 2017-02-22)
PROC: 0T788DZ Dilation of Bilateral Ureters with Intraluminal Device, Via Natural or Artificial Opening Endoscopic (ICD-10-PCS; 2017-02-22)
PROC: 0D1B0Z4 Bypass Ileum to Cutaneous, Open Approach (ICD-10-PCS; principal; 2017-02-22 12:45)
PROC: 0DNW4ZZ Release Peritoneum, Percutaneous Endoscopic Approach (ICD-10-PCS; 2017-02-22 12:45)
DX: K57.32 Diverticulitis of large intestine without perforation or abscess without bleeding (principal); N32.1 Vesicointestinal fistula; C67.1 Malignant neoplasm of dome of bladder; I10 Essential (primary) hypertension; F17.210 Nicotine dependence, cigarettes, uncomplicated; I97.3 Postprocedural hypertension; R06.6 Hiccough; G47.30 Sleep apnea, unspecified
CPT/HCPCS: 80048; 82948; 83735; 85025; 86850; 86900; 86901; 87641; 88304; 88305; 88307; 94150; C1765; C1769; C9113; J0131; J0360; J0690; J1100; J1644; J1885; J1940; J2250; J2270; J2370; J2405; J3010; J3480; J7030; J7040; J7120

== ENCOUNTER → 2017-02-18 | Outpatient (CLI) | payer OTHER ==
[~2017-02-18] MED LIST changes: +BACT800T5 PO; +CIPR500T2 PO; +ENAL10TA PO; +FAMO1TAB37 PO; +HYDR-3516 PO; +HYDR-3799 PO; +HYDR25TA5 PO; +LISI40TA PO; +LOPE2CAP92 PO; +METO50TA PO; +METR500T10 PO
[2017-02-18 13:35] LABS: AUTOMATED NEUTROPHIL # 10.9 TH/MM3 (1.8-7.7); BASOPHIL % 0.2 % (0.0-2.0); EOSINOPHIL # 0.1 TH/MM3 (0-0.4); EOSINOPHIL % 0.4 % (0.0-4.0); HEMATOCRIT 48.4 % (39.0-51.0); HEMO FLAGS DIFF FINAL; LYMPHOCYTE # 1.5 TH/MM3 (1.0-4.8); MEAN CELL VOLUME 94.4 FL (80.0-100.0); MEAN CORPUSCULAR HEMOGLOBIN 31.4 PG (27.0-34.0); MEAN CORPUSCULAR HGB CONC 33.3 % (32.0-36.0); MONO % 8.1 % (0.0-8.0); NEUT % 80.3 % (16.0-70.0); PLATELET COUNT 241 TH/MM3 (150-450); RED BLOOD COUNT 5.13 MIL/MM3 (4.50-5.90); RED CELL DISTRIBUTION WIDTH 15.6 % (11.6-17.2); WHITE BLOOD COUNT 13.6 TH/MM3 (4.0-11.0)
[2017-02-18 13:44] LABS: APTT (PATIENT) 27.9 SEC (24.3-30.1); PROTHROMBIN TIME - PATIENT 10.7 SEC (9.8-11.6)
[2017-02-18 14:01] LABS: BACTERIA, URINE MANY /hpf; MUCUS URINE MANY /lpf (OCC)
[2017-02-18 14:03] LABS: COMMENT (UR) CULTURE INDICATED; CULTURE IF INDICATED CULTURE INDICATED
[2017-02-18 14:04] LABS: ANION GAP 8 MEQ/L (5-15); AST (GOT) 40 U/L (15-37); BICARBONATE 31.9 MEQ/L (21.0-32.0); BLOOD UREA NITROGEN 12 MG/DL (7-18); CHLORIDE 99 MEQ/L (98-107); GLOMERULAR FILTRATION RATE 113 ML/MIN (>89); GLUCOSE,FASTING 94 MG/DL (74-99); POTASSIUM 3.5 MEQ/L (3.5-5.1); SODIUM (NA) 139 MEQ/L (136-145)
[2017-02-18 14:08] LABS: GLUCOSE,URINE NEG (NEG); PH, URINE 5.5 (5.0-8.5); URINE COLOR AMBER (YELLW/STRAW)
--- NOTE | 2017-02-18 14:08 | RADRPT ---
EXAM DATE/TIME: 02/18/2017 13:53 [facility] COMPARISON: CT ABDOMEN & PELVIS W CONTRAST, October 18, 2016, 11:33. INDICATIONS : Evaluate for pneumonia, pnuemothorax or communicable disease. Pre-op colon resection on 02/22/2017 MEDICAL HISTORY : Hypertension. Diabetes mellitus type II. Smoker. SURGICAL HISTORY : None. ENCOUNTER: Initial ACUITY: 1 day PAIN SCORE: 0/10 LOCATION: Bilateral chest FINDINGS: Mild linear opacities in the lung bases consistent with atelectasis/scarring similar to prior CT exam . No new focal pleural or parenchymal opacities. The cardiomediastinal contours are unremarkable. Os seous structures are intact. CONCLUSION: 1. Mild bibasilar atelectasis/scarring. 2. No acute cardiopulmonary disease. Tyson Busch MD on February 18, 2017 at 14:06 Board Certified Radiologist. This report was verified electronically.
[2017-02-18 14:09] LABS: ALKALINE PHOSPHATASE 61 U/L (45-117); ALT (GPT) 43 U/L (12-78); TOTAL BILIRUBIN ADULT 0.6 MG/DL (0.2-1.0)
[2017-02-18 14:09] LABS: BLOOD, URINE LARGE (NEG); KETONE, URINE NEG (NEG); NITRITE,URINE POS (NEG)
--- NOTE | 2017-02-19 16:41 | EKG ---
Date Performed: 02/18/2017 Time Performed: 13:05:43 PTAGE: 61 years EKG: Sinus rhythm WITH SINUS ARRHYTHMIA NONSPECIFIC T-WAVE ABNORMALITY Compared to prior tracing no significant change BORDERLINE ECG PREVIOUS TRACING : 10/19/2016 22.09 DOCTOR: Soni Chance Interpretating Date/Time 02/19/2017 16:38:23
== END ==
LOC: CPRE 12:24
PROVIDERS: ATTEND Colon & Rectal Surgery
DX: Z01.810 Encounter for preprocedural cardiovascular examination (principal); Z01.811 Encounter for preprocedural respiratory examination; Z01.812 Encounter for preprocedural laboratory examination; K57.32 Diverticulitis of large intestine without perforation or abscess without bleeding; N32.1 Vesicointestinal fistula; R94.31 Abnormal electrocardiogram [ECG] [EKG]; B96.20 Unspecified Escherichia coli [E. coli] as the cause of diseases classified elsewhere; B96.89 Other specified bacterial agents as the cause of diseases classified elsewhere; R82.99 Other abnormal findings in urine
CPT/HCPCS: 36415; 71020; 80053; 81001; 85025; 85610; 85730; 87077; 87086; 87186; 93005

== ENCOUNTER → 2017-02-21 | Outpatient (CLI) | payer OTHER ==
[~2017-02-21] VITALS: Ht 180.3 cm; Wt 77.9 kg
[~2017-02-21] MED LIST changes: +CHLORHEXIDINE GLUCONATE 2 % 1 PACK (2 CLOTHS) TOPICAL PRN; -CIPR500T2 PO; +DEXTROSE 5% IN WATE 1000ML INJ 1,000 ML IV SCH; -ENAL10TA PO; +INSULIN HUMAN REGULAR 1,000 UNITS/10 ML VIAL SQ PRN; +LACTATED RINGER'S 1000 ML IV PRN; +METOPROLOL TARTRATE 25 MG TAB PO PRN; -METR500T10 PO; +POVIDONE IODINE 5% (ANTISEPSIS KIT) 4 APPLICATIONS EACH NARE PRN; +PROPOFOL 200 MG/20 ML AMP IV ONE; +SODIUM CHLORID 0.9% 500 ML IV PRN
--- NOTE | 2017-02-21 10:29 | GIPROC ---
[facility] [address] [facility]. [facility], [address] COLONOSCOPY PROCEDURE REPORT EXAM DATE: 02/21/2017 PATIENT NAME: Cortez Bass MR #: [id number] BIRTHDATE: 1955 ENDOSCOPIST: Lyssa Diaz MD ORDER #: [id number] [employer] REPAIRER: Verónica Horton and Ashley Brewer STATUS: outpatient INDICATIONS: The patient is a 61 yr old male here for a colonoscopy due to diverticulitis, colovesical fistula. PROCEDURE PERFORMED: Flexible sigmoidoscopy MEDICATIONS: See Anesthesia Record ESTIMATED BLOOD LOSS: None CONSENT: The patient understands the risks and benefits of the procedure and understands that these risks include, but are not limited to: sedation, allergic reaction, infection, perforation and/or bleeding. Alternative means of evaluation and treatment include, among others: physical exam, x-rays, and/or surgical intervention. The patient elects to proceed with this endoscopic procedure. DESCRIPTION OF PROCEDURE: checked for proper function. Hand hygiene and appropriate measures for infection prevention was taken. After the risks, benefits and alternatives of the procedure were thoroughly explained, Informed consent was verified, confirmed and timeout was successfully executed by the treatment team. A digital exam was performed. The endoscope was introduced through the anus and advanced to the cecum, which was identified by the appendiceal orifice, tri-radiate valve, and ileocecal valve. The prep quality was fair. The instrument was then slowly withdrawn as the colon was fully examined. The scope was advanced to about 22-24 cm and a large nearly obstructing mass was visualized. I was unable to pass the scope beyond the mass. Because of the plan for resection tomorrow, no biopsies were obtained. The scope was then completely withdrawn from the patient and the procedure terminated. ADVERSE EVENTS: There were no complications. WITHDRAWL TIME: DEGREE OF DIFFICULTY: IMPRESSIONS: Normal Colon RECOMMENDATIONS: Surgery tomorrow PATIENT CONDITION: Stable DISPOSITION: Home RECALL: Will need completion colonoscopy in 3-4 months after surgery Lyssa Diaz MD eSigned: Lyssa Diaz MD 02/21/2017 10:29 AM cc: Dr. Castro
[2017-02-21 11:11] VITALS: BP 123/93; PULSE 70; RESP 18; TEMP 98.1; O2SAT 97
== END ==
LOC: HEND 07:50 → EDSTATUS 10:00
PROVIDERS: ATTEND Colon & Rectal Surgery
DX: K57.32 Diverticulitis of large intestine without perforation or abscess without bleeding (principal); N32.1 Vesicointestinal fistula; I10 Essential (primary) hypertension
CPT/HCPCS: J7120

== ENCOUNTER 2017-03-03 10:33 | Inpatient (IN) | payer OTHER ==
[2017-03-03] VITALS (13 sets, daily range): BP systolic 78–125; BP diastolic 52–81; PULSE 72–118; RESP 14–22; TEMP 97.4–97.7; O2SAT 94–100
[~2017-03-03 10:33] MED LIST changes: -BACT800T5 PO; -CHLORHEXIDINE GLUCONATE 2 % 1 PACK (2 CLOTHS) TOPICAL PRN; -DEXTROSE 5% IN WATE 1000ML INJ 1,000 ML IV SCH; -FAMO1TAB37 PO; -HYDR25TA5 PO; -INSULIN HUMAN REGULAR 1,000 UNITS/10 ML VIAL SQ PRN; -LACTATED RINGER'S 1000 ML IV PRN; -LOPE2CAP92 PO; -METOPROLOL TARTRATE 25 MG TAB PO PRN; -POVIDONE IODINE 5% (ANTISEPSIS KIT) 4 APPLICATIONS EACH NARE PRN; -PROPOFOL 200 MG/20 ML AMP IV ONE; -SODIUM CHLORID 0.9% 500 ML IV PRN
[2017-03-03] MEDS ORDERED: BACT800T5 PO (11:47)
[2017-03-03] MEDS ORDERED: FAMO1TAB37 PO (11:47)
[2017-03-03 12:11] LABS: AUTOMATED NEUTROPHIL # 19.7 TH/MM3 (1.8-7.7); BASOPHIL # 0.1 TH/MM3 (0-0.2); BASOPHIL % 0.2 % (0.0-2.0); EOSINOPHIL # 0.1 TH/MM3 (0-0.4); EOSINOPHIL % 0.5 % (0.0-4.0); HEMATOCRIT 43.4 % (39.0-51.0); HEMO FLAGS DIFF FINAL; LYMPH % 5.3 % (9.0-44.0); LYMPHOCYTE # 1.2 TH/MM3 (1.0-4.8); MEAN CELL VOLUME 92.4 FL (80.0-100.0); MEAN CORPUSCULAR HGB CONC 34.6 % (32.0-36.0); MONO % 6.9 % (0.0-8.0); NEUT % 87.1 % (16.0-70.0); PLATELET COUNT 462 TH/MM3 (150-450); RED CELL DISTRIBUTION WIDTH 15.3 % (11.6-17.2); WHITE BLOOD COUNT 22.7 TH/MM3 (4.0-11.0)
[2017-03-03] MEDS ORDERED: SODIUM CHLOR 0.9% 1000 ML INJ 1,000 ML IV ONE ×5 (12:30→14:30)
[2017-03-03 12:34] LABS: BICARBONATE 20.5 MEQ/L (21.0-32.0)
[2017-03-03 12:40] LABS: INDIRECT BILIRUBIN 0.4 MG/DL (0.0-0.8); TOTAL BILIRUBIN ADULT 0.6 MG/DL (0.2-1.0)
--- NOTE | 2017-03-03 12:41 | PD ---
HPI Chief Complaint: General Weakness Time Seen by Provider: 12:06 Travel History International Travel<30 days: No Contact w/Intl Traveler<30days: No Traveled to known affect area: No History of Present Illness HPI This patient was discharged 2 days ago after having a robotic-assisted low anterior resection and ileostomy placement. He normally has hypertension and is on 5 different antihypertensives. Yesterday he noticed that his blood pressure was low. He developed generalized weakness and fatigue and just feels washed out. Duration is 24 hours. He took his antihypertensive yesterday and thankfully did not take them today because his pressure was very low. He has a blood pressure of 79 systolic. He denies nausea or vomiting or abdominal pain or fever. He is having a very large output from his ileostomy. His significant other is tracking the outputs accurately and is getting around a liter every 3 hours. Symptoms are severe. No alleviating factors. Symptoms exacerbated by high ileostomy output. PFSH Past Medical History Arthritis: No Asthma: No Autoimmune Disease: No Heart Rhythm Problems: No Cancer: No Cardiovascular Problems: No High Cholesterol: No Chemotherapy: No Chest Pain: No Congestive Heart Failure: No COPD: No Diabetes: No Endocrine: No Gastrointestinal Disorders: Yes (DIVERTICULITIS) GERD: No Genitourinary: Yes (HODGES 16 FR PLACED 10/18/16 SCAGLIA) Hepatitis: No Hiatal Hernia: No Hypertension: Yes Immune Disorder: No Kidney Stones: No Musculoskeletal: No Neurologic: No Psychiatric: No Reproductive: No Respiratory: No Radiation Therapy: No Renal Failure: No Sickle Cell Disease: No Sleep Apnea: No Thyroid Disease: No Ulcer: No Tetanus Vaccination: Unknown Past Surgical History Abdominal Surgery: Yes (SIGMOID RESECTION 02/22/17, COLOVESICAL FISTULA RESECTION 10/18/16) AICD: No Arteriovenous Shunt: No Genitourinary Surgery: Yes Insulin Pump: No Joint Replacement: No Pacemaker: No Social History Alcohol Use: Yes (occasional) Tobacco Use: Yes Substance Use: Yes (OCCASIONAL MARAJUANA) Allergies-Medications (Allergen,Severity, Reaction): Coded Allergies: No Known Allergies (Unverified , 02/21/17) Reported Meds & Prescriptions Reported Meds & Active Scripts Active Hydrocodone-Acetaminophen 5-325 mg Tab 1 Tab PO Q6H PRN 10 Days Hydralazine HCl 25 Mg Tablet 25 Mg PO TID Norvasc (Amlodipine Besylate) 10 Mg Tab 10 Mg PO DAILY Reported Pepcid (Famotidine) 20 Mg Tab 10 Mg PO DAILY Bactrim DS (Sulfamethoxazole-Trimethoprim) 800-160 Mg Tab 1 Tab PO BID Metoprolol Tartrate 50 Mg Tab 50 Mg PO BID Lisinopril 40 Mg Tab 40 Mg PO DAILY Review of Systems General / Constitutional: No: Fever Eyes: No: Visual changes HENT: No: Headaches Cardiovascular: No: Chest Pain or Discomfort Respiratory: No: Shortness of Breath Gastrointestinal: No: Abdominal Pain Genitourinary: No: Dysuria Musculoskeletal: Positive: Weakness, No: Pain Skin: No Rash Neurologic: Positive: Weakness Psychiatric: No: Depression Endocrine: No: Polydipsia Hematologic/Lymphatic: No: Easy Bruising Physical Exam Narrative GENERAL: Thin pleasant well-developed patient with vague malaise and generalized weakness . SKIN: Focused skin assessment reveals no rash and nodules. Skin is cool and dry. HEAD: Atraumatic. Normocephalic. EYES: Pupils equal and round. No scleral icterus. No injection or drainage. ENT: No nasal bleeding or discharge. Mucous membranes pink and dry. NECK: Trachea midline. No JVD. CARDIOVASCULAR: Regular rate and rhythm. No murmur appreciated. RESPIRATORY: No accessory muscle use. Clear to auscultation. Breath sounds equal bilaterally. GASTROINTESTINAL: Abdomen soft, non-tender, nondistended. Hepatic and splenic margins not palpable. He has a right lower quadrant ileostomy putting out thin green liquid MUSCULOSKELETAL: No obvious deformities. No clubbing. No cyanosis. No edema. NEUROLOGICAL: Awake and alert. No obvious cranial nerve deficits. Motor grossly within normal limits. Normal speech. PSYCHIATRIC: Appropriate mood and affect; insight and judgment normal. : Has a Hodges catheter with no urine in the leg bag Data Data Last Documented VS Vital Signs Date Time Temp Pulse Resp B/P (MAP) Pulse Ox O2 Delivery O2 Flow Rate FiO2 03/03/17 13:30 85 16 112/60 (77) 100 Room Air 03/03/17 13:00 2.00 03/03/17 10:36 97.7 Orders Orders Complete Blood Count With Diff (03/03/17 10:53) Basic Metabolic Panel (Bmp) (03/03/17 10:53) Sodium Chlor 0.9% 1000 Ml Inj (Ns 1000 M (03/03/17 12:30) Sodium Chlor 0.9% 1000 Ml Inj (Ns 1000 M (03/03/17 12:30) Lactic Acid (03/03/17 12:20) Urinalysis - C+S If Indicated (03/03/17 12:20) Hepatic Functional Panel (03/03/17 12:20) Wheat Grower / Telemetry WINSTON.Q8H (03/03/17 12:21) Sodium Chlor 0.9% 1000 Ml Inj (Ns 1000 M (03/03/17 13:00) Sodium Chlor 0.9% 1000 Ml Inj (Ns 1000 M (03/03/17 13:00) Urine Culture (03/03/17 13:40) Admit Order (Ed Use Only) (03/03/17 14:23) Ns 1000ml Wide Open 2000 Ml/Hr (03/03/17 14:30) Labs Laboratory Tests Test 03/03/17 11:55 03/03/17 13:40 White Blood Count 22.7 TH/MM3 Red Blood Count 4.70 MIL/MM3 Hemoglobin 15.0 GM/DL Hematocrit 43.4 % Mean Corpuscular Volume 92.4 FL Mean Corpuscular Hemoglobin 32.0 PG Mean Corpuscular Hemoglobin Concent 34.6 % Red Cell Distribution Width 15.3 % Platelet Count 462 TH/MM3 Mean Platelet Volume 7.7 FL Neutrophils (%) (Auto) 87.1 % Lymphocytes (%) (Auto) 5.3 % Monocytes (%) (Auto) 6.9 % Eosinophils (%) (Auto) 0.5 % Basophils (%) (Auto) 0.2 % Neutrophils # (Auto) 19.7 TH/MM3 Lymphocytes # (Auto) 1.2 TH/MM3 Monocytes # (Auto) 1.6 TH/MM3 Eosinophils # (Auto) 0.1 TH/MM3 Basophils # (Auto) 0.1 TH/MM3 CBC Comment DIFF FINAL Differential Comment Blood Urea Nitrogen 32 MG/DL Creatinine 3.89 MG/DL Random Glucose 107 MG/DL Calcium Level 8.9 MG/DL Sodium Level 118 MEQ/L Potassium Level 4.0 MEQ/L Chloride Level 84 MEQ/L Carbon Dioxide Level 20.5 MEQ/L Anion Gap 14 MEQ/L Estimat Glomerular Filtration Rate 19 ML/MIN Lactic Acid Level 1.6 mmol/L Total Bilirubin 0.6 MG/DL Direct Bilirubin 0.2 MG/DL Indirect Bilirubin 0.4 MG/DL Aspartate Amino Transf (AST/SGOT) 10 U/L Alanine Aminotransferase (ALT/SGPT) 14 U/L Alkaline Phosphatase 81 U/L Total Protein 8.0 GM/DL Albumin 2.6 GM/DL Urine Color YELLOW Urine Turbidity HAZY Urine pH 5.5 Urine Specific [place] 1.008 Urine Protein 100 mg/dL Urine Glucose (UA) NEG mg/dL Urine Ketones NEG mg/dL Urine Occult Blood MOD Urine Nitrite NEG Urine Bilirubin NEG Urine Urobilinogen LESS THAN 2.0 MG/DL Urine Leukocyte Esterase LARGE Urine RBC 22 /hpf Urine WBC 81 /hpf Urine Squamous Epithelial Cells 1 /hpf Urine Amorphous Sediment MOD Urine Bacteria OCC /hpf Urine Hyaline Casts 3 /lpf Urine Mucus FEW /lpf Microscopic Urinalysis Comment CATH-CULTURE IND MDM Medical Decision Making Medical Screen Exam Complete: Yes Emergency Medical Condition: Yes Medical Record Reviewed: Yes Differential Diagnosis Hypovolemic shock, dehydration, renal failure Narrative Course I have reviewed the patient's electronic medical record. Reviewed his operative note from recent surgical procedure. Reviewed his recent labs. Renal function was normal at last check This patient arrives critically ill in hypovolemic shock. He is hypotensive in the 70s systolic with no urine output over the last 8 hours. I placed 2 IVs. I gave him 2 L normal saline IV bolus After the initial 2 L is infused patient is no longer tachycardic and his blood pressure is come up to 100 systolic I gave him 2 additional liters for a total of 4 L IV bolus CBC shows leukocytosis of 23,000 Metabolic profile reveals a lot of abnormalities. He has critical sodium of 118. He has new-onset renal failure with creatinine between 3 and 4. LFTs are normal Lactate is normal Patient's abdomen is soft and benign and nontender. Patient is definitely improving with IV fluid administration I have placed a call to his colorectal surgeon Dr. Diaz to discuss. This patient will need admission I reviewed the case in detail with her partner Dr. Swift. Patient will be admitted to the medical residents and he will see the patient today in consultation. At this time the patient is doing much better. After 4 L infused his blood pressure is now 112 systolic and heart rate is 85 and he has put out 100 cc of urine Critical Care Narrative Aggregate critical care time was 36 minutes. Time to perform other separately billable procedures was not included in the critical care time. My time did not include minutes spent treating any other patients simultaneously or on activities that did not directly contribute to the patient's treatment. The services I provided to this patient were to treat and/or prevent clinically significant deterioration that could result in: Cardiopulmonary arrest, cardiac arrhythmia, end organ injury I provided critical care services requiring my management, as noted below: Chart data review, documentation time, medication orders and management, vital sign assessments/reviewing monitor data, ordering and reviewing lab tests, ordering and interpreting/reviewing x-rays and diagnostic studies, care of the patient and discussion of the patient with the admitting physicians. Diagnosis Primary Impression: Hypovolemic shock Additional Impressions: High output ileostomy Renal failure Qualified Codes: N17.9 - Acute kidney failure, unspecified Dehydration with hyponatremia Admitting Information Admitting Physician Requests: Gerardo Lino MD Mar 03, 2017 12:41
[2017-03-03 14:06] LABS: BACTERIA, URINE OCC /hpf; BLOOD, URINE MOD (NEG); COMMENT (UR) CATH-CULTURE IND; CULTURE IF INDICATED CATH CULTURE IND; GLUCOSE,URINE NEG (NEG); HYALINE CAST, URINE 3 /lpf (RARE); KETONE, URINE NEG (NEG); MUCUS URINE FEW /lpf (OCC); NITRITE,URINE NEG (NEG); PH, URINE 5.5 (5.0-8.5); SQUAMOUS EPITHELIAL CELL URINE 1 /hpf (0-5); URINE COLOR YELLOW (YELLW/STRAW)
--- NOTE | 2017-03-03 15:05 | HHI.HP ---
HPI Service Family Medicine Primary Care Physician No Primary Care Physician Admission Diagnosis hypovolemic shock,hyponatremia,renal failure,high output ileostomy Diagnoses: International Travel<30 Days: No Contact w/Intl Traveler<30days: No Known Affected Area: No History of Present Illness Patient is a 62 year old man who underwent cystoscopy and placement of bilateral ureteral catheters along with partial cystectomy with bladder closure by urology, and robotic assisted low anterior resection with diverting ileostomy by colorectal surgery both on 02/22/17. Patient was discharged from the hospital this past Saturday and now presenting to the ED due to high output from his ileostomy since discharge and with complaints of fatigue and weakness. He presented to the ED hypotensive with BP as low as 78/57 and tachycardic in the 110s, vitals now stable s/p 4L NS boluses. The patient denies abdominal pain , fevers or chills, N/V. He states the contents in his ileostomy bag have been brown. Denies any visible blood or black stools in the bag. He states he noticed high output from the ileostomy shortly after getting home after his discharge. Since then he has felt very weak and fatigued along with being dizzy. He denies any falls. He denies any chest pain or shortness of breath. Denies changes in vision. He also reports little urine output since early yesterday morning. (Crow Oliveira MD R2) Review of Systems Constitutional: COMPLAINS OF: Dizziness, DENIES: Fever, Chills Eyes: DENIES: Blurred vision, Diplopia Respiratory: DENIES: Cough, Sputum production, Shortness of breath Cardiovascular: DENIES: Chest pain, Palpitations, Lower Extremity Edema Gastrointestinal: DENIES: Abdominal pain, Black stools, Bloody stools, Nausea, Vomiting Genitourinary: DENIES: Hematuria, Dysuria Neurologic: DENIES: Localized weakness (Crow Oliveira MD R2) Past Family Social History Past Medical History Diverticulitis with colovesical fistula HTN low-grade papillary noninvasive urothelial cancer with negative margins Past Surgical History Low anterior resection with diverting ileostomy due to diverticulitis with colovesical fistula (Crow Oliveira MD R2) Allergies: Coded Allergies: No Known Allergies (Unverified , 02/21/17) Family History Mother due to an MT Father with cirrhosis due to alcoholism Social History Tobacco: Admits to smoking one half PPD since the age of 16, states he now currently smokes about 5 cigarettes daily EtOH: Patient states he drinks 1-2 glasses of liquor daily, however reports not drinking etoh for about the past week as he was in the hospital and states has not had any alcohol since being discharged on the Illicit drug use: Denies (Crow Oliveira MD R2) Physical Exam Vital Signs Vital Signs Date Time Temp Pulse Resp B/P (MAP) Pulse Ox O2 Delivery O2 Flow Rate FiO2 03/03/17 13:30 85 16 112/60 (77) 100 Room Air 03/03/17 13:00 80 16 104/60 (75) 100 Nasal Cannula 2.00 03/03/17 12:40 86 16 94/52 (66) 98 Room Air 03/03/17 12:15 98 14 78/57 (64) 99 Nasal Cannula 2.00 03/03/17 12:00 98 16 79/59 (66) 97 Room Air 03/03/17 11:25 102 16 88/59 (69) 97 Room Air 86/60 (69) 03/03/17 10:36 97.7 118 15 96/52 (67) 98 Physical Exam GENERAL: NAD, lying comfortably in bed NEURO: Alert. Normal speech. switch cleaner grossly intact. Motor grossly normal. SKIN: Warm and dry. No rashes or erythema. HEAD: Normocephalic. Atraumatic. EYES: PERRL. EOMI. No scleral icterus. No injection or drainage. ENT: No nasal drainage. Moist mucous membranes. No oral ulcers or lesions. NECK: Supple, trachea midline. No JVD. CARDIOVASCULAR: Regular rate and rhythm without murmurs, rubs, or gallops. Peripheral pulses 2+. Capillary refill ~ 2 seconds. RESPIRATORY: Breath sounds clear to auscultation and equal bilaterally, without wheezes, rales, or rhonchi. No accessory muscle use. GASTROINTESTINAL: Abdomen soft, mildly tender around ileostomy bag, no surrounding erythema or drainage, nondistended, normal BS. No organomegaly or masses. No rebound tenderness. No guarding. MUSCULOSKELETAL: No lower extremity edema. Normal range of motion. Laboratory Laboratory Tests Test 03/03/17 11:55 03/03/17 13:40 White Blood Count 22.7 Red Blood Count 4.70 Hemoglobin 15.0 Hematocrit 43.4 Mean Corpuscular Volume 92.4 Mean Corpuscular Hemoglobin 32.0 Mean Corpuscular Hemoglobin Concent 34.6 Red Cell Distribution Width 15.3 Platelet Count 462 Mean Platelet Volume 7.7 Neutrophils (%) (Auto) 87.1 Lymphocytes (%) (Auto) 5.3 Monocytes (%) (Auto) 6.9 Eosinophils (%) (Auto) 0.5 Basophils (%) (Auto) 0.2 Neutrophils # (Auto) 19.7 Lymphocytes # (Auto) 1.2 Monocytes # (Auto) 1.6 Eosinophils # (Auto) 0.1 Basophils # (Auto) 0.1 CBC Comment DIFF FINAL Differential Comment Blood Urea Nitrogen 32 Creatinine 3.89 Random Glucose 107 Calcium Level 8.9 Sodium Level 118 Potassium Level 4.0 Chloride Level 84 Carbon Dioxide Level 20.5 Anion Gap 14 Estimat Glomerular Filtration Rate 19 Lactic Acid Level 1.6 Total Bilirubin 0.6 Direct Bilirubin 0.2 Indirect Bilirubin 0.4 Aspartate Amino Transf (AST/SGOT) 10 Alanine Aminotransferase (ALT/SGPT) 14 Alkaline Phosphatase 81 Total Protein 8.0 Albumin 2.6 Urine Color YELLOW Urine Turbidity HAZY Urine pH 5.5 Urine Specific [place] 1.008 Urine Protein 100 Urine Glucose (UA) NEG Urine Ketones NEG Urine Occult Blood MOD Urine Nitrite NEG Urine Bilirubin NEG Urine Urobilinogen LESS THAN 2.0 Urine Leukocyte Esterase LARGE Urine RBC 22 Urine WBC 81 Urine Squamous Epithelial Cells 1 Urine Amorphous Sediment MOD Urine Bacteria OCC Urine Hyaline Casts 3 Urine Mucus FEW Microscopic Urinalysis Comment CATH-CULTURE IND Date/Time Source Procedure Growth Status 03/03/17 13:40 Urine Catheterized Urine Urine Culture Pending Received (Crow Oliveira MD R2) Result Diagram: 03/03/17 1155 03/03/17 1155 Septic Shock Reassessment Heart: Regular rate and rhythm Lungs: Clear Skin: Warm, Dry Peripheral Pulses: Bounding Right Radial Bounding Left Radial Bounding Right Dorsalis Pedis Bounding Left Dorsalis Pedis Bounding Right Posterior Tibial Bounding Left Posterior Tibial Capillary Refill: <2 seconds (Crow Oliveira MD R2) Caprini VTE Risk Assessment Caprini VTE Risk Assessment: Mod/High Risk (score >= 2) Caprini Risk Assessment Model Point Value = 1 Point Value = 2 Point Value = 3 Point Value = 5 Age 41-60 Minor surgery BMI > 25 kg/m2 Swollen legs Varicose veins or History of unexplained or recurrent spontaneous Oral contraceptives or hormone replacement Sepsis (< 1 month) Serious lung disease, including pneumonia (< 1 month) Abnormal pulmonary function Acute myocardial infarction Congestive heart failure (< 1 month) History of inflammatory bowel disease Medical patient at bed rest Age 61-74 Arthroscopic surgery Major open surgery (> 45 min) Laparoscopic surgery (> 45 min) Malignancy Confined to bed (> 72 hours) Immobilizing plaster cast Central venous access Age >= 75 History of VTE Family history of VTE Factor V Leiden Prothrombin [id number] Lupus anticoagulant Anticardiolipin antibodies Elevated serum homocysteine Heparin-induced thrombocytopenia Other congenital or acquired thrombophilia Stroke (< 1 month) Elective arthroplasty Hip, pelvis, or leg fracture Acute spinal cord injury (< 1 month) Prophylaxis Regimen Total Risk Factor Score Risk Level Prophylaxis Regimen 0-1 Low Early ambulation 2 Moderate Order ONE of the following: *Sequential Compression Device (SCD) *Heparin 5000 units SQ BID 3-4 Higher Order ONE of the following medications: *Heparin 5000 units SQ TID *Enoxaparin/Lovenox 40 mg SQ daily (WT < 150 kg, CrCl > 30 mL/min) *Enoxaparin/Lovenox 30 mg SQ daily (WT < 150 kg, CrCl > 10-29 mL/min) *Enoxaparin/Lovenox 30 mg SQ BID (WT < 150 kg, CrCl > 30 mL/min) AND/OR *Sequential Compression Device (SCD) 5 or more Highest Order ONE of the following medications: *Heparin 5000 units SQ TID (Preferred with Epidurals) *Enoxaparin/Lovenox 40 mg SQ daily (WT < 150 kg, CrCl > 30 mL/min) *Enoxaparin/Lovenox 30 mg SQ daily (WT < 150 kg, CrCl > 10-29 mL/min) *Enoxaparin/Lovenox 30 mg SQ BID (WT < 150 kg, CrCl > 30 mL/min) AND *Sequential Compression Device (SCD) (Crow Oliveira MD R2) Assessment and Plan Assessment and Plan 62 year old man being admitted due to severe dehydration, hypotension, and MEGAN secondary to a high-output ileostomy. Code Status Full code Discussed Condition With Dr. Jeniffer Vasques (Crow Oliveira MD R2) Attending Attestation THIS CASE WAS DISCUSSED WITH THE RESIDENT PHYSICIANS. I HAVE REVIEWED THE RECORD AND AGREE WITH THE ABOVE NOTE AND PLAN OF CARE WAS DISCUSSED. I HAVE AUTHORIZED THE ORDER FOR ADMISSION TO AN IN-PATIENT STATUS. (Mitra Keita MD) Problem List: (1) High output ileostomy ICD Codes: R19.8 - Other specified symptoms and signs involving the digestive system and abdomen; Z93.2 - Ileostomy status Status: Acute Plan: - Colorectal surgery consulted - Case discussed with Dr. Swift - Recommending continuing with IVF hydration with NS at 150 cc/hr - Clear liquid diet per CRS - Will trend electrolytes and renal function and consider change in fluid rate pending repeat Na (2) Dehydration with hyponatremia ICD Codes: E87.1 - Hypo-osmolality and hyponatremia; Z93.2 - Ileostomy status Status: Acute Plan: - s/p 4L NS boluses in ED - Continue MIVF hydration as above - Continue to trend sodium level (3) Hypotension ICD Codes: I95.9 - Hypotension, unspecified Status: Acute Plan: - Vitals stabilized following IVF in the ED - Patient normally hypertensive at baseline - Holding home amlodipine, lisinopril, and hydralazine at this time - MIVF as above - Monitor vitals q4h (4) MEGAN (acute kidney injury) ICD Codes: N17.9 - Acute kidney failure, unspecified Status: Acute Plan: - Cr on admission 3.89, recently normal at 0.54 from the 11th - Likely prerenal secondary to severe dehydration - Continue NS at 150 cc/hr - Monitor I/Os and renal function - Avoid nephrotoxins (5) Abnormal urinalysis ICD Codes: R82.90 - Unspecified abnormal findings in urine Status: Acute Plan: - UA with large leuk esterase and 81 WBCs with only 1 squam cell - Urine culture pending - Pt started on Rocephin 1 gm IV q24h (6) Alcohol abuse ICD Codes: F10.10 - Alcohol abuse, uncomplicated Status: Chronic Plan: No recent etoh intake Reports last drink was over one week ago CIWA protocol for now, consider discontinuing if patient now displaying any si/ sxs of withdrawal Rally pack PO (7) Nutrition, metabolism, and development symptoms ICD Codes: R63.8 - Other symptoms and signs concerning food and fluid intake Status: Acute Plan: Fluids: NS 150 cc/hr Electrolytes: plan as above, continue to monitor closely Nutrition: CLD per CRS GI ppx: Protonix 40 mg IV daily DVT ppx: Heparin 5000 units q12, b/l SCDs (Crow Oliveira MD R2) Physician Certification 2 Midnight Certification Type: Admission for Inpatient Services Order for Inpatient Services The services are ordered in accordance with Medicare regulations or non- Medicare payer requirements, as applicable. In the case of services not specified as inpatient-only, they are appropriately provided as inpatient services in accordance with the 2-midnight benchmark. Estimated LOS (days): 2 days is the estimated time the patient will need to remain in the hospital, assuming treatment plan goals are met and no additional complications. Post-Hospital Plan: Home (Crow Oliveira MD R2) 2 Midnight Certification Type: Admission for Inpatient Services Post-Hospital Plan: Home (Mitra Keita MD) Crow Oliveira MD R2 Mar 03, 2017 15:05 Mitra Keita MD Mar 04, 2017 13:31
[2017-03-03] MEDS: PANTOPRAZOLE SODIUM 40 MG VIAL IV SCH (16:08)
[2017-03-03] MEDS: cefTRIAXone INJ 1,000 MG in SODIUM CHLORIDE 0.9% INJ 100 ML IV SCH (16:09)
--- NOTE | 2017-03-03 16:10 | MB ---
cc: BHUMI BLANCO MD DATE OF CONSULTATION: 03/03/2017. HISTORY OF PRESENT ILLNESS: This is a 62-year-old who is nine days status post low anterior resection with diverting ileostomy for diverticular disease with colovesical fistula. The patient was discharged two days ago and began to feel weak and with high ileostomy output. He was noted to have a low blood pressure and presented to the emergency room with a blood pressure of 70. He denies abdominal pain, nausea, vomiting or fever. He received 4 liters of IV fluid with normalization of vital signs. PAST MEDICAL HISTORY: Hypertension. MEDICATIONS: He is currently taking Lopressor, Norvasc, Lisinopril, Pepcid and Septra. He was discharged with a Acuna catheter. PHYSICAL EXAMINATION: GENERAL: On exam, he is alert with no distress. VITAL SIGNS: His blood pressure is 112 with a pulse of 85 after four liters of IV fluids. SKIN: Warm and dry. LUNGS: His respirations are normal. ABDOMEN: His abdomen is soft and nontender. His ileostomy is pink. LABORATORY STUDIES: Creatinine 3.8, BUN 32, sodium 118, potassium 4, carbon dioxide of 20. Urinalysis shows urinary tract infection with positive leukocyte esterase. ASSESSMENT: 1. Ileostomy. 2. Dehydration. 3. Possible urinary tract infection. PLAN: The patient will be admitted to the hospital for IV fluids, continue his Acuna catheter and a urine culture will be obtained. MD KEM Mrainelli/DEANNA /3:45 PM /3:57 PM
[2017-03-03] MEDS ORDERED: FLUMAZENIL 0.5 MG/5 ML VIAL IV PUSH PRN (16:15)
[2017-03-03] MEDS ORDERED: ACETAMINOPHEN 325 MG TAB PO PRN (16:15)
[2017-03-03] MEDS ORDERED: LORazepam 2 MG TAB PO PRN (16:15)
[2017-03-03] MEDS ORDERED: SODIUM CHLORIDE 0.9% FLUSH 10 ML FLUSH IV FLUSH PRN (16:15)
[2017-03-03] MEDS ORDERED: ONDANSETRON HCL 4 MG/2 ML VIAL IVP PRN (16:15)
[2017-03-03] MEDS ORDERED: LORazepam 1 MG TAB PO PRN (16:15)
[2017-03-03] MEDS ORDERED: LORazepam 2 MG/ML VIAL IV PUSH PRN ×4 (16:15)
[2017-03-03] MEDS ORDERED: NALOXONE HCL 0.4 MG/ML AMP IV PUSH PRN (16:15)
[2017-03-03] MEDS: SODIUM CHLOR 0.9% 1000 ML INJ 1,000 ML IV SCH ×2 (16:33→19:51)
[2017-03-03] MEDS: THIAMINE HCL 100 MG TAB PO SCH (17:26)
[2017-03-03] MEDS: FOLIC ACID 1 MG TAB PO SCH (17:26)
[2017-03-03] MEDS: MULTIVITAMIN TAB PO SCH (17:26)
[2017-03-03] MEDS: SODIUM CHLORIDE 0.9% FLUSH 10 ML FLUSH IV FLUSH SCH (19:50)
[2017-03-03 21:59] LABS: BICARBONATE 14.9 MEQ/L (21.0-32.0); POTASSIUM 3.4 MEQ/L (3.5-5.1)
[2017-03-03] MEDS: HEPARIN SODIUM - SQ 10,000 UNITS/ML VIAL SQ SCH (22:35)
[2017-03-04] VITALS: BP 107/60; PULSE 98; RESP 20; TEMP 98.4; O2SAT 95
[2017-03-04] MEDS: SODIUM CHLOR 0.9% 1000 ML INJ 1,000 ML IV SCH ×4 (00:42→23:31)
[2017-03-04 04:00] VITALS: BP 119/71; PULSE 99; RESP 20; TEMP 98.2; O2SAT 94
[2017-03-04 05:33] LABS: AUTOMATED NEUTROPHIL # 13.6 TH/MM3 (1.8-7.7); BASOPHIL % 0.2 % (0.0-2.0); EOSINOPHIL # 0.1 TH/MM3 (0-0.4); EOSINOPHIL % 0.8 % (0.0-4.0); HEMATOCRIT 36.4 % (39.0-51.0); HEMO FLAGS DIFF FINAL; LYMPH % 7.1 % (9.0-44.0); LYMPHOCYTE # 1.2 TH/MM3 (1.0-4.8); MEAN CELL VOLUME 93.1 FL (80.0-100.0); MEAN CORPUSCULAR HEMOGLOBIN 31.4 PG (27.0-34.0); MEAN CORPUSCULAR HGB CONC 33.7 % (32.0-36.0); MONO % 8.5 % (0.0-8.0); NEUT % 83.4 % (16.0-70.0); PLATELET COUNT 477 TH/MM3 (150-450); RED BLOOD COUNT 3.91 MIL/MM3 (4.50-5.90); RED CELL DISTRIBUTION WIDTH 15.3 % (11.6-17.2); WHITE BLOOD COUNT 16.2 TH/MM3 (4.0-11.0)
[2017-03-04 05:53] LABS: BICARBONATE 17.6 MEQ/L (21.0-32.0); POTASSIUM 3.5 MEQ/L (3.5-5.1)
[2017-03-04 08:00] VITALS: BP 125/83; PULSE 96; RESP 18; TEMP 97.9; O2SAT 95
[2017-03-04] MEDS: SODIUM CHLORIDE 0.9% FLUSH 10 ML FLUSH IV FLUSH SCH ×2 (09:00→21:05)
[2017-03-04] MEDS: FOLIC ACID 1 MG TAB PO SCH (10:47)
[2017-03-04] MEDS: PANTOPRAZOLE SODIUM 40 MG VIAL IV SCH (10:47)
[2017-03-04] MEDS: MULTIVITAMIN TAB PO SCH (10:47)
[2017-03-04] MEDS: THIAMINE HCL 100 MG TAB PO SCH (10:47)
[2017-03-04] MEDS: HEPARIN SODIUM - SQ 10,000 UNITS/ML VIAL SQ SCH ×2 (10:48→21:06)
[2017-03-04 12:00] VITALS: BP 122/86; PULSE 75; RESP 18; TEMP 97.4; O2SAT 97
--- NOTE | 2017-03-04 12:07 | PD.CONS ---
HPI Service Urology Consult Requested By Dr. Tobias Shields Reason for Consult Possible urinary tract infection Primary Care Physician No Primary Care Physician Diagnosis: History of Present Illness 62-year-old gentleman who recently underwent a robot-assisted laparoscopic partial cystectomy at the same operative setting as his colovesical fistula excision by Dr. Diaz on February 22 of this year. Final pathology demonstrated a focus of bladder cancer at the fistula site which was completely excised. Patient was recently discharged home and read presented back emergency room this weekend with complaints of generalized malaise. He also reported significant output from his ostomy site. He was noted to be hypotensive in the emergency room. Pertinent lab results demonstrated elevation of the BUN/creatinine which have been improving as well as presence of white cells and blood in the urine. Only a few bacteria were noted in the urinalysis. Patient reports that his Acuna catheter has been draining clear yellow urine without evidence of gross hematuria or clots. Review of Systems Constitutional: DENIES: Fever Cardiovascular: DENIES: Chest pain Gastrointestinal: DENIES: Abdominal pain Genitourinary: DENIES: Hematuria Musculoskeletal: DENIES: Back pain Except as stated in HPI: all other systems reviewed are Neg Past Family Social History Past Medical History Hypertension Past Surgical History Recent robot-assisted laparoscopic excision of colovesical fistular along with partial cystectomy. Reported Medications Refer to EMR Allergies: Coded Allergies: No Known Allergies (Unverified , 02/21/17) Active Ordered Medications Refer to EMR Family History Reviewed and noncontributory Social History Refer to EMR Physical Exam Vital Signs Date Time Temp Pulse Resp B/P (MAP) Pulse Ox O2 Delivery O2 Flow Rate FiO2 03/04/17 08:00 97.9 96 18 125/83 (97) 95 03/04/17 04:00 98.2 99 20 119/71 (87) 94 03/04/17 00:00 98.4 98 20 107/60 (76) 95 03/03/17 20:10 101 03/03/17 20:00 97.4 95 22 124/76 (92) 96 03/03/17 17:29 72 03/03/17 16:41 03/03/17 16:00 97.7 90 18 125/81 (96) 94 03/03/17 15:00 82 16 120/74 (89) 98 Room Air 03/03/17 14:00 86 14 118/73 (88) 100 Room Air 03/03/17 13:30 85 16 112/60 (77) 100 Room Air 03/03/17 13:00 80 16 104/60 (75) 100 Nasal Cannula 2.00 03/03/17 12:40 86 16 94/52 (66) 98 Room Air 03/03/17 12:15 98 14 78/57 (64) 99 Nasal Cannula 2.00 03/03/17 12:00 98 16 79/59 (66) 97 Room Air Physical Exam GENERAL: This is a well-nourished, well-developed patient, in no apparent distress. SKIN: No rashes, ecchymoses or lesions. Cool and dry. HEAD: Atraumatic. Normocephalic. No temporal or scalp tenderness. EYES: Pupils equal round and reactive. Extraocular motions intact. No scleral icterus. No injection or drainage. ENT: Nose without bleeding, purulent drainage or septal hematoma. Throat without erythema, tonsillar hypertrophy or exudate. Uvula midline. Airway patent. NECK: Trachea midline. No JVD or lymphadenopathy. Supple, nontender, no meningeal signs. GASTROINTESTINAL: Abdomen soft, non-tender, nondistended. No hepato-splenomegaly , or palpable masses. No guarding. GENITOURINARY: Bladder not distended. Acuna catheter in place and draining clear yellow urine. MUSCULOSKELETAL: Extremities without clubbing, cyanosis, or edema. No joint tenderness, effusion, or edema noted. No calf tenderness. Negative Homans sign bilaterally. NEUROLOGICAL: Awake and alert. Cranial nerves II through XII intact. Motor and sensory grossly within normal limits. Five out of 5 muscle strength in all muscle groups. Normal speech. Lab results reviewed: Yes Laboratory Tests Test 03/03/17 13:40 03/03/17 20:20 03/04/17 04:34 Urine Color YELLOW Urine Turbidity HAZY Urine pH 5.5 Urine Specific [place] 1.008 Urine Protein 100 Urine Glucose (UA) NEG Urine Ketones NEG Urine Occult Blood MOD Urine Nitrite NEG Urine Bilirubin NEG Urine Urobilinogen LESS THAN 2.0 Urine Leukocyte Esterase LARGE Urine RBC 22 Urine WBC 81 Urine Squamous Epithelial Cells 1 Urine Amorphous Sediment MOD Urine Bacteria OCC Urine Hyaline Casts 3 Urine Mucus FEW Microscopic Urinalysis Comment CATH-CULTURE IND Blood Urea Nitrogen 25 22 Creatinine 2.22 1.60 Random Glucose 100 75 Calcium Level 7.9 7.8 Sodium Level 130 133 Potassium Level 3.4 3.5 Chloride Level 102 104 Carbon Dioxide Level 14.9 17.6 Anion Gap 13 11 Estimat Glomerular Filtration Rate 37 53 White Blood Count 16.2 Red Blood Count 3.91 Hemoglobin 12.3 Hematocrit 36.4 Mean Corpuscular Volume 93.1 Mean Corpuscular Hemoglobin 31.4 Mean Corpuscular Hemoglobin Concent 33.7 Red Cell Distribution Width 15.3 Platelet Count 477 Mean Platelet Volume 7.6 Neutrophils (%) (Auto) 83.4 Lymphocytes (%) (Auto) 7.1 Monocytes (%) (Auto) 8.5 Eosinophils (%) (Auto) 0.8 Basophils (%) (Auto) 0.2 Neutrophils # (Auto) 13.6 Lymphocytes # (Auto) 1.2 Monocytes # (Auto) 1.4 Eosinophils # (Auto) 0.1 Basophils # (Auto) 0.0 CBC Comment DIFF FINAL Differential Comment Date/Time Source Procedure Growth Status 03/03/17 13:40 Urine Catheterized Urine Urine Culture Pending Received Result Diagram: 03/04/17 0434 03/04/17 0434 Assessment and Plan Assessment and Plan Urologic impression: #1 improving renal parameters related to dehydration #2 small amount of red cells and white cells in the urine related to recent bladder surgery. #3 status post recent robot-assisted laparoscopic partial cystectomy with evidence of a small focus bladder cancer within the specimen. Recommendations: #1 cystogram this Saturday morning #2 office follow up this Saturday morning after cystogram study performed so that Acuna catheter can be removed pending cystogram results [id number]. Collin Bowden MD Mar 04, 2017 12:07
--- NOTE | 2017-03-04 15:06 | HHI.FPPN ---
Problem Problem List: (1) Cancer of bladder wall (2) Acuna catheter in place on admission (3) High output ileostomy (4) Dehydration with hyponatremia (5) Hypovolemic shock (6) MEGAN (acute kidney injury) Subjective Subjective Patient is a 62 year old man who underwent cystoscopy and placement of bilateral ureteral catheters along with partial cystectomy with bladder closure by urology, and robotic assisted low anterior resection with diverting ileostomy by colorectal surgery both on 02/22/17. Patient was discharged from the hospital this past Saturday and then came to ED due to high output from his ileostomy since discharge and with complaints of fatigue and weakness. He presented to the ED hypotensive with BP as low as 78/57 and tachycardic in the 110s. The patient denies abdominal pain, fevers or chills, N/V. He states the contents in his ileostomy bag have been brown. Denies any visible blood or black stools in the bag. He states he noticed high output from the ileostomy shortly after getting home after his discharge. Since then he has felt very weak and fatigued along with being dizzy. He denies any falls. He denies any chest pain or shortness of breath. Denies changes in vision. He also reports little urine output since early yesterday morning. His vitals stabilized after fluid re-hydration with 4L bolus and additional fluids. Urology and gen surg has been consulted to assist with the eval and management of this patient. Since admission the patients vitals have normalized and his renal function and labs have improved. He is overall feeling somewhat better. Denies SOB, CHEST pain. 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 Past Surgical History Low anterior resection with diverting ileostomy due to diverticulitis with colovesical fistula bladder procedure as detailed above Allergies: Coded Allergies: No Known Allergies (Unverified , 02/21/17) Family History Mother due to an HI Father with cirrhosis due to alcoholism Social History Tobacco: Admits to smoking one half PPD since the age of 16, states he now currently smokes about 5 cigarettes daily EtOH: Patient states he drinks 1-2 glasses of liquor daily, however reports not drinking etoh for about the past week as he was in the hospital and states has not had any alcohol since being discharged on the Illicit drug use: Denies Hospital Objective Objective Laboratory Tests - Abnormals Test 03/03/17 20:20 03/04/17 04:34 Blood Urea Nitrogen 25 MG/DL 22 MG/DL Creatinine 2.22 MG/DL 1.60 MG/DL Calcium Level 7.9 MG/DL 7.8 MG/DL Sodium Level 130 MEQ/L 133 MEQ/L Potassium Level 3.4 MEQ/L Carbon Dioxide Level 14.9 MEQ/L 17.6 MEQ/L Estimat Glomerular Filtration Rate 37 ML/MIN 53 ML/MIN White Blood Count 16.2 TH/MM3 Red Blood Count 3.91 MIL/MM3 Hemoglobin 12.3 GM/DL Hematocrit 36.4 % Platelet Count 477 TH/MM3 Neutrophils (%) (Auto) 83.4 % Lymphocytes (%) (Auto) 7.1 % Monocytes (%) (Auto) 8.5 % Neutrophils # (Auto) 13.6 TH/MM3 Monocytes # (Auto) 1.4 TH/MM3 Vital Signs 03/03/17 03/03/17 03/03/17 03/03/17 15:00 16:00 16:41 17:29 Temp 97.7 Pulse 82 90 72 Resp 16 18 B/P (MAP) 120/74 (89) 125/81 (96) Pulse Ox 98 94 O2 Delivery Room Air 03/03/17 03/03/17 03/04/17 03/04/17 20:00 20:10 00:00 04:00 Temp 97.4 98.4 98.2 Pulse 95 101 98 99 Resp 22 20 20 B/P (MAP) 124/76 (92) 107/60 (76) 119/71 (87) Pulse Ox 96 95 94 03/04/17 03/04/17 08:00 12:00 Temp 97.9 97.4 Pulse 96 75 Resp 18 18 B/P (MAP) 125/83 (97) 122/86 (98) Pulse Ox 95 97 INTAKE & OUTPUT 03/05/17 07:00 Intake Total 1000 ml Output Total 2300 ml Balance -1300 ml Physical exam O. CONSTITUTIONAL/GEN: normally nourished, in NAD. EYES: conjunctiva normal, PERRLA, EOMI. ENT: Mouth and pharynx normal. NECK: thyroid midline, carotids symmetrical. LUNGS: clear A-P, respiratory effort is normal. CARDIOVASCULAR: RR without murmur or gallop. No significant edema. GI/ABD: soft without masses, without organomegaly. Ileostomy site appears intact and not infected, bag is full of clear/brownish drainage : no CVA tenderness NEURO: No focal deficits. Gait is normal SKIN: color normal, no rashes noted. HEME/LYMPH: no bruising, petechia or significant adenopathy MUSC: back is normal in appearance. Extremities are normal in appearance. PSYCH/MENTAL STATUS: Alert and oriented x 3. Assessment Assessment: (1) High output ileostomy (2) Dehydration with hyponatremia (3) Hypotension (4) Abnormal urinalysis (5) MEGAN (acute kidney injury) (6) Cancer of bladder wall (7) Acuna catheter in place on admission Assessment 62 year old male with high output from his ileostomy with resultant dehydration and MEGAN -- appears to be improving both symptomatically and on lab evaluation with aggressive rehydration. Surgery and urology notes and plans reviewed. continue to IVF with electrolyte correction continue to monitor labs Urinalysis somewhat concerning with cath specimen -- empirically treating with rocephin -- culture is pending. PLAN PLAN patient seen and dw with the resident team -- Dr. Oliveira, Dr. Vasques, Dr. Alyson Keita,Mitra Villarreal MD Mar 04, 2017 15:06
[2017-03-04 16:00] VITALS: BP 131/84; PULSE 86; RESP 19; TEMP 96.7; O2SAT 97
--- NOTE | 2017-03-04 16:32 | HHI.PR ---
Subjective Remarks POD#10 s/p LAR with diverting ileostomy with dehydration Comfortable, hungry Objective Vital Signs Date Time Temp Pulse Resp B/P (MAP) Pulse Ox O2 Delivery O2 Flow Rate FiO2 03/04/17 16:00 96.7 86 19 131/84 (100) 97 03/04/17 12:00 97.4 75 18 122/86 (98) 97 03/04/17 08:00 97.9 96 18 125/83 (97) 95 03/04/17 04:00 98.2 99 20 119/71 (87) 94 03/04/17 00:00 98.4 98 20 107/60 (76) 95 03/03/17 20:10 101 03/03/17 20:00 97.4 95 22 124/76 (92) 96 03/03/17 17:29 72 03/03/17 16:41 I/O 03/03/17 03/03/17 03/03/17 03/04/17 03/04/17 03/04/17 07:00 15:00 23:00 07:00 15:00 23:00 Intake Total 100 ml 320 ml 1000 ml Output Total 1550 ml 2825 ml 2300 ml Balance -1450 ml -2505 ml -1300 ml Intake Oral 320 ml IV Total 100 ml 1000 ml Output Urine Total 400 ml 2525 ml 1450 ml Stool Total 1150 ml 300 ml 850 ml # Voids 0 # Bowel Movements 1 1 Result Diagram: 03/04/17 0434 03/04/17 0434 Objective Remarks Abdomen soft, nondistended, nontender Stoma pink, wounds clean Assessment and Plan Assessment and Plan Improving Advance diet Mobilize Lyssa Diaz MD Mar 04, 2017 16:32
[2017-03-04] MEDS: cefTRIAXone INJ 1,000 MG in SODIUM CHLORIDE 0.9% INJ 100 ML IV SCH (18:49)
[2017-03-04 20:00] VITALS: BP 149/86; PULSE 83; RESP 20; TEMP 98.2; O2SAT 98
[2017-03-05] VITALS (7 sets, daily range): BP systolic 144–170; BP diastolic 48–99; PULSE 69–88; RESP 17–19; TEMP 97–98.6; O2SAT 95–97
[2017-03-05 06:33] LABS: BASOPHIL # 0.1 TH/MM3 (0-0.2); BASOPHIL % 0.5 % (0.0-2.0); EOSINOPHIL # 0.1 TH/MM3 (0-0.4); HEMO FLAGS DIFF FINAL; LYMPH % 12.4 % (9.0-44.0); LYMPHOCYTE # 1.6 TH/MM3 (1.0-4.8); MEAN CELL VOLUME 92.9 FL (80.0-100.0); MEAN CORPUSCULAR HEMOGLOBIN 30.8 PG (27.0-34.0); MEAN CORPUSCULAR HGB CONC 33.2 % (32.0-36.0); MONO % 8.3 % (0.0-8.0); NEUT % 77.8 % (16.0-70.0); PLATELET COUNT 581 TH/MM3 (150-450); RED BLOOD COUNT 3.98 MIL/MM3 (4.50-5.90); RED CELL DISTRIBUTION WIDTH 15.2 % (11.6-17.2); WHITE BLOOD COUNT 12.9 TH/MM3 (4.0-11.0)
[2017-03-05] MEDS: SODIUM CHLOR 0.9% 1000 ML INJ 1,000 ML IV SCH ×3 (06:44→20:45)
[2017-03-05 07:13] LABS: BICARBONATE 20.7 MEQ/L (21.0-32.0); POTASSIUM 3.2 MEQ/L (3.5-5.1)
[2017-03-05] MEDS: SODIUM CHLORIDE 0.9% FLUSH 10 ML FLUSH IV FLUSH SCH ×2 (09:00→20:45)
[2017-03-05] MEDS: PANTOPRAZOLE SODIUM 40 MG VIAL IV SCH (10:29)
[2017-03-05] MEDS: FOLIC ACID 1 MG TAB PO SCH (10:29)
[2017-03-05] MEDS: THIAMINE HCL 100 MG TAB PO SCH (10:29)
[2017-03-05] MEDS: MULTIVITAMIN TAB PO SCH (10:29)
[2017-03-05] MEDS: HEPARIN SODIUM - SQ 10,000 UNITS/ML VIAL SQ SCH ×2 (10:30→20:44)
--- NOTE | 2017-03-05 12:42 | HHI.FPPN ---
Subjective Remarks No acute events overnight. BPs trending higher, 120s-140s/80s-90s past 24 hours. Patient states overall he is feeling better. States his fatigue and weakness are both improved. 2075cc output noted from ostomy. 2250cc of urine output. Patient is otherwise without complaints. Denies fevers, CP, SOB, pain. (Crow Oliveira MD R2) Objective Vitals Vital Signs Date Time Temp Pulse Resp B/P (MAP) Pulse Ox O2 Delivery O2 Flow Rate FiO2 03/05/17 12:00 97.9 81 19 162/99 (120) 96 03/05/17 08:00 97.2 81 19 148/98 (115) 97 03/05/17 04:09 144/84 (104) 03/05/17 04:00 97.0 81 18 144/84 (104) 95 03/05/17 04:00 97.0 81 18 144/84 (104) 95 03/05/17 00:28 97.6 88 18 146/98 (114) 97 03/04/17 20:00 98.2 83 20 149/86 (107) 98 03/04/17 16:00 96.7 86 19 131/84 (100) 97 I/O 03/04/17 03/04/17 03/04/17 03/05/17 03/05/17 03/05/17 07:00 15:00 23:00 07:00 15:00 23:00 Intake Total 320 ml 1000 ml 2000 ml 2160 ml Output Total 2825 ml 2300 ml 1000 ml 1025 ml 300 ml Balance -2505 ml -1300 ml 1000 ml 1135 ml -300 ml Intake Oral 320 ml 2000 ml 600 ml IV Total 1000 ml 1560 ml Output Urine Total 2525 ml 1450 ml 800 ml Stool Total 300 ml 850 ml 200 ml 1025 ml 300 ml # Bowel Movements 1 (Crow Oliveira MD R2) Result Diagram: 03/05/1760903/05/17609 Objective Remarks GENERAL: NAD, lying comfortably in bed NEURO: Alert. Normal speech. specialist wound care grossly intact. Motor grossly normal. SKIN: Warm and dry. No rashes or erythema. HEAD: Normocephalic. Atraumatic. EYES: EOMI. No scleral icterus. No injection or drainage. ENT: No nasal drainage. Moist mucous membranes. No oral ulcers or lesions. NECK: Supple, trachea midline. CARDIOVASCULAR: Regular rate and rhythm without murmurs, rubs, or gallops. Peripheral pulses 2+. RESPIRATORY: Breath sounds clear to auscultation and equal bilaterally, without wheezes, rales, or rhonchi. No accessory muscle use. GASTROINTESTINAL: Abdomen soft, nontender, nondistended, normal BS. No organomegaly or masses. No rebound tenderness. No guarding. MUSCULOSKELETAL: No lower extremity edema. Normal range of motion. (Crow Oliveira MD R2) A/P Assessment and Plan 62 year old man admitted due to severe dehydration, hypotension, and MEGAN secondary to a high-output ileostomy. (Crow Oliveira MD R2) Attending Attestation Patient seen and examined. Case reviewed and discussed with the resident team. Agree with plan of care as discussed with me and documented in the resident note. (Mitra Keita MD) Problem List: (1) High output ileostomy ICD Codes: R19.8 - Other specified symptoms and signs involving the digestive system and abdomen; Z93.2 - Ileostomy status Status: Acute Plan: - Colorectal surgery consulted - Continuing with IVF hydration with NS at 130 cc/hr, will discuss with CRS if able to decrease/discontinue given pt tolerating regular diet - Continue regular diet as tolerated (2) Dehydration with hyponatremia ICD Codes: E87.1 - Hypo-osmolality and hyponatremia; Z93.2 - Ileostomy status Status: Acute Plan: - s/p 4L NS boluses in ED - Continue MIVF hydration as above - Na normalized (3) Hypotension ICD Codes: I95.9 - Hypotension, unspecified Status: Resolved Plan: - Vitals stabilized following IVF in the ED - Patient normally hypertensive at baseline, BPs now trending higher - Restarted patients home amlodipine 10 mg po daily - Holding lisinopril, and hydralazine at this time, will restart if needed - MIVF as above - Monitor vitals q4h (4) MEGAN (acute kidney injury) ICD Codes: N17.9 - Acute kidney failure, unspecified Status: Resolved Plan: - Cr on admission 3.89, recently normal at 0.54 from the 11th - Likely prerenal secondary to severe dehydration - Continue NS at 130 cc/hr - Monitor I/Os and renal function - Avoid nephrotoxins - Cr now normalized, 0.95 today with good UOP (5) Abnormal urinalysis ICD Codes: R82.90 - Unspecified abnormal findings in urine Status: Resolved Plan: - UA with large leuk esterase and 81 WBCs with only 1 squam cell - Urine culture no growth after 48 hours - Pt started on Rocephin 1 gm IV q24h on 03/03, will discontinue today with 3rd dose given (6) Alcohol abuse ICD Codes: F10.10 - Alcohol abuse, uncomplicated Status: Chronic Plan: No recent etoh intake Reports last drink was over one week ago CIWA protocol for now, consider discontinuing if patient not displaying any si/ sxs of withdrawal Rally pack PO (7) Nutrition, metabolism, and development symptoms ICD Codes: R63.8 - Other symptoms and signs concerning food and fluid intake Status: Acute Plan: Fluids: NS 130 cc/hr Electrolytes: plan as above, continue to monitor closely Nutrition: Regular GI ppx: Protonix 40 mg IV daily DVT ppx: Heparin 5000 units q12, b/l SCDs (Crow Oliveira MD R2) Crow Oliveira MD R2 Mar 05, 2017 12:42 Mitra Keita MD Mar 05, 2017 13:48
[2017-03-05] MEDS ORDERED: POTASSIUM CHLORIDE 10 MEQ CONTROLLED RELEASE TAB PO ONE (13:00)
--- NOTE | 2017-03-05 13:07 | HHI.PR ---
Subjective Remarks POD#11 s/p LAR with diverting ileostomy with dehydration Comfortable Objective Vital Signs Date Time Temp Pulse Resp B/P (MAP) Pulse Ox O2 Delivery O2 Flow Rate FiO2 03/05/17 12:00 97.9 81 19 162/99 (120) 96 03/05/17 08:00 97.2 81 19 148/98 (115) 97 03/05/17 04:09 144/84 (104) 03/05/17 04:00 97.0 81 18 144/84 (104) 95 03/05/17 04:00 97.0 81 18 144/84 (104) 95 03/05/17 00:28 97.6 88 18 146/98 (114) 97 03/04/17 20:00 98.2 83 20 149/86 (107) 98 03/04/17 16:00 96.7 86 19 131/84 (100) 97 I/O 03/04/17 03/04/17 03/04/17 03/05/17 03/05/17 03/05/17 07:00 15:00 23:00 07:00 15:00 23:00 Intake Total 320 ml 1000 ml 2000 ml 2160 ml Output Total 2825 ml 2300 ml 1000 ml 1025 ml 300 ml Balance -2505 ml -1300 ml 1000 ml 1135 ml -300 ml Intake Oral 320 ml 2000 ml 600 ml IV Total 1000 ml 1560 ml Output Urine Total 2525 ml 1450 ml 800 ml Stool Total 300 ml 850 ml 200 ml 1025 ml 300 ml # Bowel Movements 1 Result Diagram: 03/05/17 0610 03/05/17 0610 Objective Remarks Abdomen soft, nondistended, nontender Stoma pink, output thicker Wounds clean Assessment and Plan Assessment and Plan Continue IVF until ileo output decreased Add Imodium Restart Metoprolol Lyssa Diaz MD Mar 05, 2017 13:07
[2017-03-05] MEDS: LOPERAMIDE HCL 2 MG CAP PO SCH ×2 (13:50→20:44)
[2017-03-05] MEDS: METOPROLOL TARTRATE 50 MG TAB PO SCH ×2 (13:50→20:44)
[2017-03-05] MEDS: cefTRIAXone INJ 1,000 MG in SODIUM CHLORIDE 0.9% INJ 100 ML IV SCH (16:51)
[2017-03-06] VITALS (7 sets, daily range): BP systolic 143–159; BP diastolic 91–107; PULSE 64–72; RESP 16–17; TEMP 96.7–98.8; O2SAT 95–98
[2017-03-06] MEDS: SODIUM CHLOR 0.9% 1000 ML INJ 1,000 ML IV SCH (06:22)
[2017-03-06 07:09] LABS: HEMATOCRIT 35.4 % (39.0-51.0); MEAN CELL VOLUME 92.9 FL (80.0-100.0); MEAN CORPUSCULAR HEMOGLOBIN 31.8 PG (27.0-34.0); MEAN CORPUSCULAR HGB CONC 34.2 % (32.0-36.0); PLATELET COUNT 563 TH/MM3 (150-450); RED BLOOD COUNT 3.81 MIL/MM3 (4.50-5.90); RED CELL DISTRIBUTION WIDTH 15.2 % (11.6-17.2); REVIEW FLAG FINAL; WHITE BLOOD COUNT 12.3 TH/MM3 (4.0-11.0)
[2017-03-06 07:31] LABS: ANION GAP 9 MEQ/L (5-15); AST (GOT) 8 U/L (15-37); BICARBONATE 21.7 MEQ/L (21.0-32.0); BLOOD UREA NITROGEN 5 MG/DL (7-18); CHLORIDE 106 MEQ/L (98-107); GLOMERULAR FILTRATION RATE 119 ML/MIN (>89); POTASSIUM 3.5 MEQ/L (3.5-5.1); SODIUM (NA) 137 MEQ/L (136-145)
[2017-03-06 07:32] LABS: ALT (GPT) 11 U/L (12-78)
[2017-03-06 07:34] LABS: ALKALINE PHOSPHATASE 72 U/L (45-117); TOTAL BILIRUBIN ADULT 0.3 MG/DL (0.2-1.0)
--- NOTE | 2017-03-06 08:40 | HHI.PR ---
Subjective Remarks POD#12 s/p LAR with diverting ileostomy with dehydration Comfortable Objective Vital Signs Date Time Temp Pulse Resp B/P (MAP) Pulse Ox O2 Delivery O2 Flow Rate FiO2 03/06/17 04:00 97.7 69 17 152/99 (116) 95 03/05/17 20:00 98.6 69 17 168/98 (121) 97 03/05/17 16:00 97.6 82 19 170/48 (88) 97 03/05/17 12:00 97.9 81 19 162/99 (120) 96 I/O 03/05/17 03/05/17 03/05/17 03/06/17 03/06/17 03/06/17 07:00 15:00 23:00 07:00 15:00 23:00 Intake Total 2160 ml 1700 ml 1240 ml Output Total 1025 ml 300 ml 1550 ml 3000 ml Balance 1135 ml -300 ml 150 ml -1760 ml Intake Oral 600 ml 600 ml 240 ml IV Total 1560 ml 1100 ml 1000 ml Output Urine Total 1200 ml 2000 ml Stool Total 1025 ml 300 ml 350 ml 1000 ml Result Diagram: 03/06/17 0500 03/06/17 0500 Objective Remarks Abdomen soft, nondistended, nontender Stoma pink, output thicker Wounds clean Assessment and Plan Assessment and Plan Restart all BP meds d/c IVF Increase Imodium Lyssa Diaz MD Mar 06, 2017 08:40
[2017-03-06] MEDS: MULTIVITAMIN TAB PO SCH (08:51)
[2017-03-06] MEDS: THIAMINE HCL 100 MG TAB PO SCH (08:51)
[2017-03-06] MEDS: PANTOPRAZOLE SODIUM 40 MG VIAL IV SCH (08:51)
[2017-03-06] MEDS: FOLIC ACID 1 MG TAB PO SCH (08:51)
[2017-03-06] MEDS: HEPARIN SODIUM - SQ 10,000 UNITS/ML VIAL SQ SCH ×2 (08:51→20:33)
[2017-03-06] MEDS: LOPERAMIDE HCL 2 MG CAP PO SCH ×4 (08:52→20:32)
[2017-03-06] MEDS: METOPROLOL TARTRATE 50 MG TAB PO SCH ×2 (08:52→20:32)
[2017-03-06] MEDS: SODIUM CHLORIDE 0.9% FLUSH 10 ML FLUSH IV FLUSH SCH ×2 (08:54→20:36)
[2017-03-06] MEDS ORDERED: LOPERAMIDE HCL 2 MG CAP PO SCH (09:00)
--- NOTE | 2017-03-06 09:47 | HHI.FPPN ---
Subjective Remarks Afebrile overnight. No acute complaints. Adequate intake and output. States that he's noticed decrease output from his ileostomy bag, less of the liquid consistency since taking Imodium. (Mayela Vasques MD R1) Objective Vitals Vital Signs Date Time Temp Pulse Resp B/P (MAP) Pulse Ox O2 Delivery O2 Flow Rate FiO2 03/06/17 08:00 96.7 69 16 159/107 (124) 98 03/06/17 04:00 97.7 69 17 152/99 (116) 95 03/05/17 20:00 98.6 69 17 168/98 (121) 97 03/05/17 16:00 97.6 82 19 170/48 (88) 97 03/05/17 12:00 97.9 81 19 162/99 (120) 96 I/O 03/05/17 03/05/17 03/05/17 03/06/17 03/06/17 03/06/17 07:00 15:00 23:00 07:00 15:00 23:00 Intake Total 2160 ml 1700 ml 1240 ml 414 ml Output Total 1025 ml 300 ml 1550 ml 3000 ml Balance 1135 ml -300 ml 150 ml -1760 ml 414 ml Intake Oral 600 ml 600 ml 240 ml IV Total 1560 ml 1100 ml 1000 ml 414 ml Output Urine Total 1200 ml 2000 ml Stool Total 1025 ml 300 ml 350 ml 1000 ml (Mayela Vasques MD R1) Result Diagram: 03/06/17 0500 03/06/17 0500 Objective Remarks GENERAL: NAD, lying comfortably in bed NEURO: Alert. Normal speech. 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 Motor grossly normal. SKIN: Warm and dry. HEAD: Normocephalic. Atraumatic. EYES: EOMI. NECK: Supple, trachea midline. CARDIOVASCULAR: Regular rate and rhythm without murmurs, rubs, or gallops. RESPIRATORY: Breath sounds clear to auscultation and equal bilaterally, without wheezes, rales, or rhonchi. GASTROINTESTINAL: Abdomen soft, nontender, nondistended, normal BS. No organomegaly or masses. MUSCULOSKELETAL: No lower extremity edema. Normal range of motion. (Mayela Vasques MD R1) A/P Assessment and Plan 62 year old man admitted due to severe dehydration, hypotension, and MEGAN secondary to a high-output ileostomy. Initially presented with electrolyte imbalance and dehydration, MEGAN, and hypertension, which of all resolved. Monitoring patient for decreased ileostomy output after supplementing with IV fluids and Imodium. Discharge Planning Per colorectal recs (Mayela Vasques MD R1) Attending Attestation Patient seen and examined. Case reviewed and discussed with the resident team. Agree with plan of care as discussed with me and documented in the resident note. The patient is clinically doing well and appears to be tolerating a diet along along with improved symptoms. He is up and ambulating around the floor without difficulty. Suspect he will be clinically ready for d/c in the next 1- 2 days. There is an order for cystogram for urology set for Saturday morning. We will need to reach out to urology to see if that needs to be performed during this hospital stay or as an outpatient for discharge planning. (Mitra Keita MD) Problem List: (1) High output ileostomy ICD Codes: R19.8 - Other specified symptoms and signs involving the digestive system and abdomen; Z93.2 - Ileostomy status Status: Acute Plan: - Colorectal surgery following - D/C'd IVF -Continuing your diet - Imodium (2) Abnormal urinalysis ICD Codes: R82.90 - Unspecified abnormal findings in urine Status: Resolved Plan: - UA with large leuk esterase and 81 WBCs. Urine cx no growth after 48 - Urine culture no growth after 48 hours - D/C'd Rocephin after 3 days (3) Alcohol abuse ICD Codes: F10.10 - Alcohol abuse, uncomplicated Status: Chronic Plan: No recent etoh intake Reports last drink was over one week ago [place] protocol for now, consider discontinuing if patient not displaying any si/ sxs of withdrawal Rally pack PO (4) Nutrition, metabolism, and development symptoms ICD Codes: R63.8 - Other symptoms and signs concerning food and fluid intake Status: Acute Plan: Fluids: none Electrolytes: none Nutrition: Regular GI ppx: Protonix 40 mg IV daily DVT ppx: Heparin 5000 units q12, b/l SCDs (Mayela Vasques MD R1) Mayela Vasques MD R1 Mar 06, 2017 09:47 Mitra Keita MD Mar 06, 2017 13:49
[2017-03-06] MEDS: LISINOPRIL 20 MG TAB PO SCH (10:35)
[2017-03-06] MEDS: hydrALAZINE HCL 25 MG TAB PO SCH ×3 (10:35→18:17)
[2017-03-07] VITALS: BP 150/89; PULSE 68; RESP 17; TEMP 97.2; O2SAT 98
[2017-03-07 04:00] VITALS: BP 136/86; PULSE 62; RESP 17; TEMP 97.4; O2SAT 98
[2017-03-07 06:56] LABS: AUTOMATED NEUTROPHIL # 7.9 TH/MM3 (1.8-7.7); BASOPHIL # 0.1 TH/MM3 (0-0.2); BASOPHIL % 0.6 % (0.0-2.0); EOSINOPHIL # 0.2 TH/MM3 (0-0.4); EOSINOPHIL % 1.6 % (0.0-4.0); HEMATOCRIT 35.3 % (39.0-51.0); HEMO FLAGS DIFF FINAL; LYMPH % 18.7 % (9.0-44.0); LYMPHOCYTE # 2.1 TH/MM3 (1.0-4.8); MEAN CELL VOLUME 92.7 FL (80.0-100.0); MEAN CORPUSCULAR HEMOGLOBIN 31.7 PG (27.0-34.0); MEAN CORPUSCULAR HGB CONC 34.2 % (32.0-36.0); MONO % 8.1 % (0.0-8.0); PLATELET COUNT 578 TH/MM3 (150-450); RED BLOOD COUNT 3.81 MIL/MM3 (4.50-5.90); RED CELL DISTRIBUTION WIDTH 15.1 % (11.6-17.2); WHITE BLOOD COUNT 11.1 TH/MM3 (4.0-11.0)
[2017-03-07 07:18] LABS: BICARBONATE 23.2 MEQ/L (21.0-32.0)
--- NOTE | 2017-03-07 07:26 | HHI.PR ---
Subjective Remarks POD#14 s/p LAR with diverting ileostomy with dehydration Comfortable Objective Vital Signs Date Time Temp Pulse Resp B/P (MAP) Pulse Ox O2 Delivery O2 Flow Rate FiO2 03/07/17 04:00 97.4 62 17 136/86 (103) 98 03/07/17 00:00 97.2 68 17 150/89 (109) 98 03/06/17 20:30 66 03/06/17 20:00 98.8 64 17 143/93 (110) 98 03/06/17 18:31 72 03/06/17 16:00 98.4 72 17 146/91 (109) 97 03/06/17 12:00 97.9 68 16 149/94 (112) 97 03/06/17 08:00 96.7 69 16 159/107 (124) 98 I/O 03/06/17 03/06/17 03/06/17 03/07/17 03/07/17 03/07/17 06:59 14:59 22:59 06:59 14:59 22:59 Intake Total 1240 ml 414 ml 860 ml 240 ml Output Total 3000 ml 2500 ml 1250 ml Balance -1760 ml 414 ml -1640 ml -1010 ml Intake Oral 240 ml 860 ml 240 ml IV Total 1000 ml 414 ml Output Urine Total 2000 ml 1800 ml 850 ml Stool Total 1000 ml 700 ml 400 ml Result Diagram: 03/07/17 0553 03/07/17 0553 Objective Remarks Abdomen soft, nondistended, nontender Stoma pink Wounds clean Assessment and Plan Assessment and Plan Doing well Continue Imodium after discharge BP management per Medicine Service I will be out of town starting this afternoon, Dr. Fallon will cover. Lyssa Diaz MD Mar 07, 2017 07:26
[2017-03-07] MEDS ORDERED: LOPE2CAP92 PO (07:28)
[2017-03-07 08:00] VITALS: BP 145/98; PULSE 61; RESP 17; TEMP 97.2; O2SAT 98
[2017-03-07] MEDS: PANTOPRAZOLE SODIUM 40 MG VIAL IV SCH (08:01)
[2017-03-07] MEDS: THIAMINE HCL 100 MG TAB PO SCH (08:01)
[2017-03-07] MEDS: HEPARIN SODIUM - SQ 10,000 UNITS/ML VIAL SQ SCH (08:01)
[2017-03-07] MEDS: hydrALAZINE HCL 25 MG TAB PO SCH ×2 (08:01→12:49)
[2017-03-07] MEDS: MULTIVITAMIN TAB PO SCH (08:01)
[2017-03-07] MEDS: FOLIC ACID 1 MG TAB PO SCH (08:02)
[2017-03-07] MEDS: LOPERAMIDE HCL 2 MG CAP PO SCH ×2 (08:02→12:49)
[2017-03-07] MEDS: LISINOPRIL 20 MG TAB PO SCH (08:02)
[2017-03-07] MEDS: METOPROLOL TARTRATE 50 MG TAB PO SCH (08:02)
[2017-03-07] MEDS: SODIUM CHLORIDE 0.9% FLUSH 10 ML FLUSH IV FLUSH SCH (08:05)
--- NOTE | 2017-03-07 09:26 | HHI.FPPN ---
Subjective Remarks No acute events overnight. Patient states he is doing well overall. He denies fevers/chills, fatigue, weakness, CP, SOB, abdominal pain. 1100 cc of output noted from ostomy. 2650 cc of UOP. Patient states he has been ambulatory around the halls of his medical floor. Remains afebrile. BPs ranging 130s-150s/80s-100s over past 24 hours. (Crow Oliveira MD R2) Objective Vitals Vital Signs Date Time Temp Pulse Resp B/P (MAP) Pulse Ox O2 Delivery O2 Flow Rate FiO2 03/07/17 08:00 97.2 61 17 145/98 (114) 98 03/07/17 04:00 97.4 62 17 136/86 (103) 98 03/07/17 00:00 97.2 68 17 150/89 (109) 98 03/06/17 20:30 66 03/06/17 20:00 98.8 64 17 143/93 (110) 98 03/06/17 18:31 72 03/06/17 16:00 98.4 72 17 146/91 (109) 97 03/06/17 12:00 97.9 68 16 149/94 (112) 97 I/O 03/06/17 03/06/17 03/06/17 03/07/17 03/07/17 03/07/17 07:00 15:00 23:00 07:00 15:00 23:00 Intake Total 1240 ml 414 ml 860 ml 240 ml Output Total 3000 ml 2500 ml 1250 ml Balance -1760 ml 414 ml -1640 ml -1010 ml Intake Oral 240 ml 860 ml 240 ml IV Total 1000 ml 414 ml Output Urine Total 2000 ml 1800 ml 850 ml Stool Total 1000 ml 700 ml 400 ml (Crow Oliveira MD R2) Result Diagram: 03/07/17 0553 03/07/17 0553 Objective Remarks GENERAL: NAD, lying comfortably in bed NEURO: Alert. Normal speech. 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 Motor grossly normal. SKIN: Warm and dry. HEAD: Normocephalic. Atraumatic. EYES: EOMI. No injection. NECK: Supple, trachea midline. CARDIOVASCULAR: Regular rate and rhythm without murmurs, rubs, or gallops. RESPIRATORY: Breath sounds clear to auscultation and equal bilaterally, without wheezes, rales, or rhonchi. GASTROINTESTINAL: Abdomen soft, nontender, nondistended, normal BS. No organomegaly or masses. Ostomy bag currently emptied. MUSCULOSKELETAL: No lower extremity edema. Normal range of motion. (Crow Oliveira MD R2) A/P Assessment and Plan 62 year old man admitted due to severe dehydration, hypotension, and MEGAN secondary to a high-output ileostomy. Dehydration, hypotension, and MEGAN have resolved. Colorectal surgery consulted and has been following the patient. Patient started on Imodium and plan to continue this after discharge per CRS rec with outpatient follow up. Discharge Planning Per colorectal recs (Crow Oliveira MD R2) Attending Attestation Patient seen and examined. Case reviewed and discussed with the resident team. Agree with plan of care as discussed with me and documented in the resident note. Patient clinically at baseline and ileostomy putting out less than 1200ml in the past 24 hours. He is tolerative diet and labs have normalized. He has fu with urology tomorrow for his bladder surgery and for cath removal. He has fu with colorectal surgery for his ileostomy. Time spent in counseling patient on the need for increased intake of fluids to accommodate the output of fluids from the ileostomy. DC to home today (Mitra Keita MD) Problem List: (1) High output ileostomy ICD Codes: R19.8 - Other specified symptoms and signs involving the digestive system and abdomen; Z93.2 - Ileostomy status Status: Acute Plan: - Colorectal surgery following - IVF discontinued 03/06 - Continue regular diet - Imodium 4 mg po qid per colorectal surgery - Continue to monitor I/Os (2) Hypertension ICD Codes: I10 - Essential (primary) hypertension Status: Chronic Plan: Restarted patients home antihypertensives - Amlodipine 10 mg po daily - Lisinopril 40 mg po daily - Metoprolol 50 mg po bid - Hydralazine 25 mg po tid Continue to monitor vitals q4h (3) Alcohol abuse ICD Codes: F10.10 - Alcohol abuse, uncomplicated Status: Chronic Plan: No recent etoh intake Reports last drink was over one week prior to admission CIWA protocol discontinued, patient had been scoring very low Rally pack PO (4) MEGAN (acute kidney injury) ICD Codes: N17.9 - Acute kidney failure, unspecified Status: Resolved Plan: - Cr on admission 3.89, now normalized - Likely prerenal secondary due to severe dehydration - IVF discontinued - Monitor I/Os and renal function - Avoid nephrotoxins (5) Dehydration with hyponatremia ICD Codes: E87.1 - Hypo-osmolality and hyponatremia; Z93.2 - Ileostomy status Status: Resolved Plan: Resolved, patient appears well hydrated on exam Na normalized Continue to monitor electrolytes (6) Abnormal urinalysis ICD Codes: R82.90 - Unspecified abnormal findings in urine Status: Resolved Plan: - UA with large leuk esterase and 81 WBCs. Urine cx no growth after 48 - Urine culture no growth after 48 hours - D/C'd Rocephin after 3 days (7) Nutrition, metabolism, and development symptoms ICD Codes: R63.8 - Other symptoms and signs concerning food and fluid intake Status: Acute Plan: Fluids: none Electrolytes: WNL Nutrition: Regular GI ppx: Switch to PO Protonix 40 mg daily tomorrow DVT ppx: Heparin 5000 units q12, b/l SCDs (Crow Oliveira MD R2) Crow Oliveira MD R2 Mar 07, 2017 09:26 Mitra Keita MD Mar 07, 2017 17:32
[2017-03-07 11:10] VITALS: PULSE 65
[2017-03-07 12:00] VITALS: BP 128/82; PULSE 65; RESP 18; TEMP 97; O2SAT 97
--- NOTE | 2017-03-07 13:10 | HHI.DCPOC ---
Discharge Care Plan Diagnosis: (1) Acuna catheter in place on admission (2) Hypotension (3) High output ileostomy (4) MEGAN (acute kidney injury) (5) Abnormal urinalysis Goals to Promote Your Health * To prevent worsening of your condition and complications, f/u with appropriate doctors and take your medications * To maintain your health at the optimal level, exercise at least 30 min daily, eat Mediterranean diet, and regularly see your doctor Directions to Meet Your Goals Take your medications as prescribed Follow your dietary instruction Follow activity as directed Keep your appointments as scheduled Take your immunizations and boosters as scheduled If your symptoms worsen call your PCP, if no PCP go to Urgent Care Center or Emergency Room Smoking is Dangerous to Your Health. Avoid second hand smoke Call the 24-hour hour crisis hotline for domestic abuse at Mayela Vasques MD R1 Mar 07, 2017 13:10
--- NOTE | 2017-03-07 13:19 | HHI.FF ---
Face to Face Verification Diagnosis: (1) MEGAN (acute kidney injury) (2) Hypotension (3) Acuna catheter in place on admission (4) High output ileostomy Home Health Nursing Order: Medical education (Administration of BP meds; assistance with care for ostomy bag) Insulation Estimator Order: To Evaluate: Support services (emergency medical technician/driver) I have seen patient Cortez Bass on 03/07/17. My clinical findings support the need for the requested home health care services because: Med compliance is questionable I certify that my clinical findings support that this patient is homebound because: Unable to use public transportation Mayela Vasques MD R1 Mar 07, 2017 13:19
--- NOTE | 2017-03-07 19:39 | HHI.DS ---
Discharge Summary Admission Date Mar 03, 2017 at 14:26 Admitting Diagnosis hypovolemic shock,hyponatremia,renal failure,high output ileostomy (1) High output ileostomy Plan: - Colorectal surgery following - IVF discontinued 03/06 - Continue regular diet - Imodium 4 mg po qid per colorectal surgery - Continue to monitor I/Os ICD Codes: R19.8 - Other specified symptoms and signs involving the digestive system and abdomen; Z93.2 - Ileostomy status Status: Acute (2) Hypertension Plan: Restarted patients home antihypertensives - Amlodipine 10 mg po daily - Lisinopril 40 mg po daily - Metoprolol 50 mg po bid - Hydralazine 25 mg po tid Continue to monitor vitals q4h ICD Codes: I10 - Essential (primary) hypertension Status: Chronic (3) Alcohol abuse Plan: No recent etoh intake Reports last drink was over one week prior to admission CIWA protocol discontinued, patient had been scoring very low Rally pack PO ICD Codes: F10.10 - Alcohol abuse, uncomplicated Status: Chronic (4) MEGAN (acute kidney injury) Plan: - Cr on admission 3.89, now normalized - Likely prerenal secondary due to severe dehydration - IVF discontinued - Monitor I/Os and renal function - Avoid nephrotoxins ICD Codes: N17.9 - Acute kidney failure, unspecified Status: Resolved (5) Dehydration with hyponatremia Plan: Resolved, patient appears well hydrated on exam Na normalized Continue to monitor electrolytes ICD Codes: E87.1 - Hypo-osmolality and hyponatremia; Z93.2 - Ileostomy status Status: Resolved (6) Abnormal urinalysis Plan: - UA with large leuk esterase and 81 WBCs. Urine cx no growth after 48 - Urine culture no growth after 48 hours - D/C'd Rocephin after 3 days ICD Codes: R82.90 - Unspecified abnormal findings in urine Status: Resolved (7) Nutrition, metabolism, and development symptoms Plan: Fluids: none Electrolytes: WNL Nutrition: Regular GI ppx: Switch to PO Protonix 40 mg daily tomorrow DVT ppx: Heparin 5000 units q12, b/l SCDs ICD Codes: R63.8 - Other symptoms and signs concerning food and fluid intake Status: Acute Brief History Patient is a 62 year old man who underwent cystoscopy and placement of bilateral ureteral catheters along with partial cystectomy with bladder closure by urology, and robotic assisted low anterior resection with diverting ileostomy by colorectal surgery both on 02/22/17. Patient was discharged from the hospital this past Saturday and now presenting to the ED due to high output from his ileostomy since discharge and with complaints of fatigue and weakness. He presented to the ED hypotensive with BP as low as 78/57 and tachycardic in the 110s, vitals now stable s/p 4L NS boluses. The patient denies abdominal pain , fevers or chills, N/V. He states the contents in his ileostomy bag have been brown. Denies any visible blood or black stools in the bag. He states he noticed high output from the ileostomy shortly after getting home after his discharge. Since then he has felt very weak and fatigued along with being dizzy. He denies any falls. He denies any chest pain or shortness of breath. Denies changes in vision. He also reports little urine output since early yesterday morning. CBC/BMP: 03/07/17 0553 03/07/17 0553 Significant Findings Laboratory Tests Test 03/05/17 06:10 03/06/17 05:00 03/07/17 05:53 White Blood Count 12.9 TH/MM3 (4.0-11.0) 12.3 TH/MM3 (4.0-11.0) 11.1 TH/MM3 (4.0-11.0) Red Blood Count 3.98 MIL/MM3 (4.50-5.90) 3.81 MIL/MM3 (4.50-5.90) 3.81 MIL/MM3 (4.50-5.90) Hemoglobin 12.3 GM/DL (13.0-17.0) 12.1 GM/DL (13.0-17.0) 12.1 GM/DL (13.0-17.0) Hematocrit 37.0 % (39.0-51.0) 35.4 % (39.0-51.0) 35.3 % (39.0-51.0) Platelet Count 581 TH/MM3 (150-450) 563 TH/MM3 (150-450) 578 TH/MM3 (150-450) Neutrophils (%) (Auto) 77.8 % (16.0-70.0) 71.0 % (16.0-70.0) Monocytes (%) (Auto) 8.3 % (0.0-8.0) 8.1 % (0.0-8.0) Neutrophils # (Auto) 10.0 TH/MM3 (1.8-7.7) 7.9 TH/MM3 (1.8-7.7) Monocytes # (Auto) 1.1 TH/MM3 (0-0.9) Calcium Level 8.4 MG/DL (8.5-10.1) 8.3 MG/DL (8.5-10.1) 8.3 MG/DL (8.5-10.1) Potassium Level 3.2 MEQ/L (3.5-5.1) Carbon Dioxide Level 20.7 MEQ/L (21.0-32.0) Blood Urea Nitrogen 5 MG/DL (7-18) Albumin 2.3 GM/DL (3.4-5.0) Aspartate Amino Transf (AST/SGOT) 8 U/L (15-37) Alanine Aminotransferase (ALT/SGPT) 11 U/L (12-78) PE at Discharge GENERAL: NAD, lying comfortably in bed NEURO: Alert. Normal speech. switchbox assembler grossly intact. Motor grossly normal. SKIN: Warm and dry. HEAD: Normocephalic. Atraumatic. EYES: EOMI. No injection. NECK: Supple, trachea midline. CARDIOVASCULAR: Regular rate and rhythm without murmurs, rubs, or gallops. RESPIRATORY: Breath sounds clear to auscultation and equal bilaterally, without wheezes, rales, or rhonchi. GASTROINTESTINAL: Abdomen soft, nontender, nondistended, normal BS. No organomegaly or masses. Ostomy bag currently emptied. MUSCULOSKELETAL: No lower extremity edema. Normal range of motion. Pt Condition on Discharge: Stable Discharge Disposition: Discharge Home Discharge Instructions DIET: Follow Instructions for: As Tolerated, No Restrictions Activities you can perform: Regular-No Restrictions Crow Oliveira MD R2 Mar 07, 2017 19:39
[2017-03-08] MEDS ORDERED: PANTOPRAZOLE SOD 40 MG DELAYED RELEASE TAB PO SCH (09:00)
== END 2017-03-07 14:50 | disposition home or self-care (01) | DRG 683 ==
LOC: NEPD 10:33 → NEDA 14:26 → N07A 16:45
PROVIDERS: ADMIT Family Medicine; ATTEND Family Medicine
DX: N17.9 Acute kidney failure, unspecified (principal); E87.1 Hypo-osmolality and hyponatremia; C67.9 Malignant neoplasm of bladder, unspecified; E86.0 Dehydration; I10 Essential (primary) hypertension; F10.10 Alcohol abuse, uncomplicated; Z93.2 Ileostomy status; Z81.1 Family history of alcohol abuse and dependence; Z82.49 Family history of ischemic heart disease and other diseases of the circulatory system; F17.210 Nicotine dependence, cigarettes, uncomplicated; R19.8 Other specified symptoms and signs involving the digestive system and abdomen; R82.90 Unspecified abnormal findings in urine
CPT/HCPCS: 80048; 80053; 80076; 81001; 83605; 85025; 85027; 87086; 96360; 96361; C9113; J0696; J1644; J7030

== ENCOUNTER → 2017-03-08 | Outpatient (CLI) | payer OTHER ==
[~2017-03-08] MED LIST changes: +DIATRIZOATE MEG 30% 300 ML BOTTLE (for RAD DIAG) URETHRAL ONE; +FAMO1TAB37 PO; -HYDR-3516 PO; +LOPE2CAP92 PO
--- NOTE | 2017-03-08 10:15 | RADRPT ---
EXAM DATE/TIME: 03/08/2017 08:59 [facility] COMPARISON: No previous studies available for comparison. INDICATIONS : Tumor. FLUORO TIME: 1.1 minutes IMAGE COUNT: 16 CONTRAST: 275 cc Cystografin MEDICAL HISTORY : Hypertension. Diabetes mellitus type II SURGICAL HISTORY : Diverticulitis, surgery 02/22/17. catheter placed then. ENCOUNTER: Initial ACUITY: 2 weeks PAIN SCORE: 0/10 LOCATION: Bilateral Bladder. FINDINGS: Preliminary film is unremarkable. No abnormal calcifications are identified. Patient presents with a Acuna catheter and the urinary bladder. The urinary bladder filled in retrogr darshana fashion to adequate distention and post images in multiple obliquities were obtained. There is no evidence of any leakage. There is no evidence of reflux into the ureters. Urinary bladder is grossly unremarkable. Post films were performed which were unremarkable. CONCLUSION: Unremarkable cystogram. Derek Ervin MD on March 08, 2017 at 10:11 Board Certified Radiologist. This report was verified electronically.
== END ==
LOC: HRAD 08:24
PROVIDERS: ATTEND Urology
DX: R31.9 Hematuria, unspecified (principal); C67.1 Malignant neoplasm of dome of bladder
CPT/HCPCS: 51600; 74430; Q9958

== ENCOUNTER → 2017-04-26 | Outpatient (CLI) | payer OTHER ==
[~2017-04-26] MED LIST changes: -DIATRIZOATE MEG 30% 300 ML BOTTLE (for RAD DIAG) URETHRAL ONE; +DIATRIZOATE MEGLUM/DIATRIZOATE SOD 120 ML BTL (for RAD DIAG) RECTAL ONE; +LOPE2CAP2 PO; -LOPE2CAP92 PO
--- NOTE | 2017-04-26 13:29 | RADRPT ---
EXAM DATE/TIME: 04/26/2017 11:38 [facility] COMPARISON: No previous studies available for comparison. INDICATIONS : Evaluate for Anastomotic leak. Prior colovesical fistula repair.. FLUORO TIME: 1.8 minutes IMAGE COUNT: 20 CONTRAST: 1. [facility] MEDICAL HISTORY : Hypertension. SURGICAL HISTORY : Part of colon removed 03/05, Ileostomt. ENCOUNTER: Initial ACUITY: 2 months PAIN SCORE: 0/10 LOCATION: Bilateral Abdomen. FINDINGS: Aircraft Refueller view demonstrates no abnormality. Under fluoroscopic guidance a Gastrografin enema was performe d with free flow of contrast to the cecal tip. There is sigmoid diverticulosis. The focal area of reanastomosis is not clearly identified. However, no extravasation is seen. CONCLUSION: 1. No extravasation of contrast is identified. 2. Sigmoid diverticulosis. Henry Bowling MD on April 26, 2017 at 13:22 Board Certified Radiologist. This report was verified electronically.
== END ==
LOC: HRAD 11:02
PROVIDERS: ATTEND Colon & Rectal Surgery
DX: Z09 Encounter for follow-up examination after completed treatment for conditions other than malignant neoplasm (principal)
CPT/HCPCS: 74270; Q9963

== ENCOUNTER 2017-05-06 10:52 | Inpatient (IN) | payer OTHER ==
[~2017-05-06] VITALS: Ht 180.3 cm; Wt 82.5 kg
[~2017-05-06 10:52] MED LIST changes: -DIATRIZOATE MEGLUM/DIATRIZOATE SOD 120 ML BTL (for RAD DIAG) RECTAL ONE; -FAMO1TAB37 PO
[2017-05-06] MEDS ORDERED: METOPROLOL TARTRATE 25 MG TAB PO PRN (11:30)
[2017-05-06] MEDS ORDERED: SODIUM CHLORID 0.9% 500 ML IV PRN (11:30)
[2017-05-06] MEDS ORDERED: POVIDONE IODINE 5% (ANTISEPSIS KIT) 4 APPLICATIONS EACH NARE PRN (11:30)
[2017-05-06] MEDS ORDERED: CHLORHEXIDINE GLUCONATE 2 % 1 PACK (2 CLOTHS) TOPICAL PRN (11:30)
[2017-05-06] MEDS ORDERED: LACTATED RINGER'S 1000 ML IV PRN (11:30)
[2017-05-06] MEDS ORDERED: METRONIDAZOLE 500 MG/100 ML ISONTONIC SOLN IV ONE (12:00)
[2017-05-06] MEDS ORDERED: ceFAZolin 2 GM PREMIX 50 ML IV ONE (12:00)
[2017-05-06 12:15] LABS: BASOPHIL % 0.4 % (0.0-2.0); EOSINOPHIL # 0.1 TH/MM3 (0-0.4); EOSINOPHIL % 0.6 % (0.0-4.0); HEMATOCRIT 45.5 % (39.0-51.0); HEMO FLAGS DIFF FINAL; LYMPH % 17.4 % (9.0-44.0); LYMPHOCYTE # 1.7 TH/MM3 (1.0-4.8); MEAN CELL VOLUME 99.8 FL (80.0-100.0); MEAN CORPUSCULAR HEMOGLOBIN 34.6 PG (27.0-34.0); MEAN CORPUSCULAR HGB CONC 34.7 % (32.0-36.0); MONO % 9.4 % (0.0-8.0); NEUT % 72.2 % (16.0-70.0); PLATELET COUNT 333 TH/MM3 (150-450); RED BLOOD COUNT 4.57 MIL/MM3 (4.50-5.90); RED CELL DISTRIBUTION WIDTH 16.3 % (11.6-17.2); WHITE BLOOD COUNT 9.8 TH/MM3 (4.0-11.0)
[2017-05-06 12:39] LABS: ANION GAP 8 MEQ/L (5-15); AST (GOT) 12 U/L (15-37); BICARBONATE 22.1 MEQ/L (21.0-32.0); BLOOD UREA NITROGEN 9 MG/DL (7-18); CHLORIDE 104 MEQ/L (98-107); GLOMERULAR FILTRATION RATE 74 ML/MIN (>89); POTASSIUM 4.2 MEQ/L (3.5-5.1); SODIUM (NA) 134 MEQ/L (136-145)
[2017-05-06 12:42] LABS: ALKALINE PHOSPHATASE 73 U/L (45-117); ALT (GPT) 15 U/L (12-78); TOTAL BILIRUBIN ADULT 0.7 MG/DL (0.2-1.0)
[2017-05-06] MEDS ORDERED: SUGAMMADEX SODIUM 200 MG/2 ML VIAL IV PUSH ONE ×2 (14:38)
[2017-05-06] MEDS: PCA - TOTAL MG MORPHINE DELIVERED PER SHIFT SCH ×2 (14:45→22:00)
[2017-05-06] MEDS ORDERED: POTASSIUM CHLOR 40 MEQ PREMIX 100 ML IV PRN (14:45)
[2017-05-06] MEDS ORDERED: MORPHINE SULFATE 30 MG/30 ML PCA IV SCH (14:45)
[2017-05-06] MEDS ORDERED: Post-op Orders (for Pharmacy) XX ONE (14:45)
[2017-05-06] MEDS ORDERED: ACETAMINOPHEN/HYDROcodone 325 MG/5 MG TAB PO PRN ×2 (14:45)
[2017-05-06] MEDS ORDERED: diphenhydrAMINE HCL 50 MG/ML VIAL IV PUSH PRN (14:45)
[2017-05-06] MEDS ORDERED: NALOXONE HCL 0.4 MG/ML AMP IV PUSH PRN (14:45)
[2017-05-06] MEDS ORDERED: ONDANSETRON HCL 4 MG/2 ML VIAL IV PUSH PRN (14:45)
[2017-05-06] MEDS ORDERED: ACETAMINOPHEN 325 MG TAB PO PRN (14:45)
[2017-05-06] MEDS ORDERED: ENALAPRILAT 1.25 MG/ML VIAL IV PUSH PRN (14:45)
[2017-05-06] MEDS ORDERED: ENALAPRILAT 2.5 MG/2 ML VIAL IV PUSH PRN (14:45)
[2017-05-06] MEDS ORDERED: BENZOCAINE 6 MG/MENTHOL 10 MG LOZENGE BUCCAL PRN (14:45)
[2017-05-06] MEDS ORDERED: POTASSIUM CHLOR 20 MEQ PREMIX 100 ML IV PRN (14:45)
[2017-05-06] MEDS ORDERED: DO NOT ADM ANY ANTICOAGULANT DRUGS PRN (14:50)
[2017-05-06] MEDS: KETOROLAC TROMETHAMINE 30 MG/ML (IVP) VIAL IVP SCH ×3 (15:00→22:14)
[2017-05-06] MEDS ORDERED: *morphine SULFATE 8 MG/ML PERIprocedure ONLY ONE (15:01)
[2017-05-06] MEDS: D5-NS + KCL 20 MEQ INJ 1,000 ML IV SCH ×2 (15:05→21:16)
[2017-05-06 16:20] LABS: BICARBONATE 21.1 MEQ/L (21.0-32.0); POTASSIUM 4.4 MEQ/L (3.5-5.1)
[2017-05-06 16:30] VITALS: BP 138/88; PULSE 16; RESP 16; TEMP 98.3; O2SAT 99
[2017-05-06] MEDS: hydrALAZINE HCL 25 MG TAB PO SCH (17:15)
[2017-05-06 19:00] VITALS: BP 133/88; PULSE 60; RESP 18; TEMP 97.8; O2SAT 96
[2017-05-06 19:58] VITALS: O2SAT 96
[2017-05-06] MEDS: DEXT 5%-NACL 0.9% 1000 ML INJ 1,000 ML IV SCH (20:00)
[2017-05-06] MEDS: METOPROLOL TARTRATE 50 MG TAB PO SCH (21:17)
[2017-05-06] MEDS: metroNIDAZOLE 500 MG INJ 100 ML IV SCH ×2 (21:18→22:15)
[2017-05-06 22:14] VITALS: O2SAT 96
[2017-05-06] MEDS ORDERED: diphenhydrAMINE HCL 50 MG/ML VIAL IV ONE (22:15)
[2017-05-06] MEDS ORDERED: RESP: RACEPINEPHRINE 2.25% 0.5 ML NEB NEB ONE (22:15)
[2017-05-06 23:00] VITALS: BP 137/86; PULSE 76; RESP 18; TEMP 97.9; O2SAT 94
[2017-05-07] VITALS (20 sets, daily range): BP systolic 126–149; BP diastolic 80–97; PULSE 60–77; RESP 16–20; TEMP 97.9–98.4; O2SAT 95–98
[2017-05-07] MEDS: DEXT 5%-NACL 0.9% 1000 ML INJ 1,000 ML IV SCH ×2 (04:00→20:17)
[2017-05-07] MEDS: D5-NS + KCL 20 MEQ INJ 1,000 ML IV SCH ×2 (04:31→15:47)
[2017-05-07] MEDS: PCA - TOTAL MG MORPHINE DELIVERED PER SHIFT SCH (06:00)
[2017-05-07 06:26] LABS: AUTOMATED NEUTROPHIL # 15.4 TH/MM3 (1.8-7.7); BASOPHIL % 0.2 % (0.0-2.0); HEMATOCRIT 44.5 % (39.0-51.0); HEMO FLAGS DIFF FINAL; LYMPH % 4.1 % (9.0-44.0); LYMPHOCYTE # 0.7 TH/MM3 (1.0-4.8); MEAN CELL VOLUME 99.7 FL (80.0-100.0); MEAN CORPUSCULAR HEMOGLOBIN 33.9 PG (27.0-34.0); MEAN CORPUSCULAR HGB CONC 33.9 % (32.0-36.0); MONO % 3.8 % (0.0-8.0); NEUT % 91.9 % (16.0-70.0); PLATELET COUNT 325 TH/MM3 (150-450); RED BLOOD COUNT 4.46 MIL/MM3 (4.50-5.90); RED CELL DISTRIBUTION WIDTH 16.4 % (11.6-17.2); WHITE BLOOD COUNT 16.7 TH/MM3 (4.0-11.0)
[2017-05-07 06:57] LABS: BICARBONATE 22.1 MEQ/L (21.0-32.0); POTASSIUM 5.2 MEQ/L (3.5-5.1)
[2017-05-07] MEDS: KETOROLAC TROMETHAMINE 30 MG/ML (IVP) VIAL IVP SCH ×3 (08:21→21:06)
[2017-05-07] MEDS: METOPROLOL TARTRATE 50 MG TAB PO SCH ×2 (08:22→21:06)
[2017-05-07] MEDS: PANTOPRAZOLE SODIUM 40 MG VIAL IVP SCH (08:22)
[2017-05-07] MEDS: hydrALAZINE HCL 25 MG TAB PO SCH ×3 (08:23→18:26)
--- NOTE | 2017-05-07 10:32 | HHI.PR ---
Subjective Remarks POD#1 s/p ileostomy closure tongue swelling overnight, better now Objective Vital Signs Date Time Temp Pulse Resp B/P (MAP) Pulse Ox O2 Delivery O2 Flow Rate FiO2 05/07/17 08:20 98 21 05/07/17 03:00 98.4 60 18 126/80 (95) 97 05/06/17 23:00 97.9 76 18 137/86 (103) 94 05/06/17 22:14 96 21 05/06/17 22:00 18 05/06/17 19:58 96 Nasal Cannula 1.00 05/06/17 19:00 97.8 60 18 133/88 (103) 96 05/06/17 17:47 16 05/06/17 16:55 16 05/06/17 16:30 98.3 16 16 138/88 (105) 99 05/06/17 16:15 62 16 127/88 (101) 96 Nasal Cannula 2 05/06/17 16:00 59 16 129/86 (100) 97 Nasal Cannula 2 05/06/17 15:45 60 16 135/83 (100) 97 Nasal Cannula 2 05/06/17 15:37 16 05/06/17 15:32 16 05/06/17 15:30 57 16 119/81 (94) 98 Nasal Cannula 2 05/06/17 15:15 57 16 129/83 (98) 98 Nasal Cannula 2 05/06/17 15:00 61 16 120/81 (94) 97 Nasal Cannula 2 05/06/17 14:52 97.5 66 18 122/82 (95) 99 Nasal Cannula 2 05/06/17 14:45 16 05/06/17 11:40 97.5 62 18 117/82 (94) 98 I/O 05/06/17 05/06/17 05/06/17 05/07/17 05/07/17 05/07/17 07:00 15:00 23:00 07:00 15:00 23:00 Intake Total 1000 ml 240 ml Output Total 50 ml 300 ml Balance 950 ml -60 ml Intake Oral 240 ml Other 1000 ml Output Urine Total 300 ml Stool Total 0 ml Estimated Blood Loss 50 ml Result Diagram: 05/07/17 0524 05/07/1724 Objective Remarks Abdomen soft, nondistended, tender Dressing c/d/i Assessment and Plan Assessment and Plan Fulls for lunch, low residue Transfer to [facility] Lyssa Diaz MD May 07, 2017 10:32
[2017-05-07] MEDS: LISINOPRIL 20 MG TAB PO SCH (10:45)
[2017-05-07] MEDS: metroNIDAZOLE 500 MG INJ 100 ML IV SCH (11:19)
[2017-05-07] MEDS: HEPARIN SODIUM - SQ 10,000 UNITS/ML VIAL SQ SCH (13:16)
--- NOTE | 2017-05-07 16:57 | MP ---
cc: FARRUKH BULLARD M.D. DATE OF SURGERY: 05/06/2017 PREOPERATIVE DIAGNOSIS: Diverticulitis. Colorectal fissula. POSTOPERATIVE DIAGNOSIS: Diverticulitis. Colorectal fissula. OPERATION: Resection with reanastomosis ostomy SURGEON Joe ANESTHESIA General per ET. ESTIMATED BLOOD LOSS 50 CC OPERATIVE INDICATIONS The patient is a 62-year-old male who is about not quite 3 months out from a robotic low anterior resection with diverting ileostomy for a severe diverticulitis with colovesical fistula OPERATIVE COURSE: The patient was brought to placed in supine position after induction of general anesthesia. The stoma was sutured closed with 3-0 Vicryl. Skin of the anterior abdominal wall was then prepped and draped usual sterile fashion and a vertical lenticular shaped incision was then made around the stoma in electrocautery dissection was carried down to the fascia anterior abdominal wall. The bowel was then cleared of the fascia circumferentially and gently prolapsed out through the aperture. A site was then chosen for division of the bowel just proximal distal to the stoma. A window was made in the mesentery and load of the NANDO blue load was placed across the bowel at both proximally and distally, fired and removed. As a result the intervening mesentery was serially divided and ligated 0 Vicryl ties. The antimesenteric corners of staple line was then removed one limb of the Estratest a site was placed on each limb the bowel. This was closed along the antimesenteric border, fired and removed thus creating anterior enterotomy resulting enterotomy was closed transversely in the [place] 60 stapling device small area of bleeding on the edge of the anastomosis was controlled with [id number] fashion using 3-0 Vicryl and a simple stay suture was placed in the distal end of the anastomosis using 3-0 Vicryl. The anastomosis was palpated found to be widely patent was gently reduced back into the peritoneal cavity. The posterior fascia at the incision was closed in a running vertical fashion using #1 PDS. The anterior fascia was closed in a running vertical fashion using one PDS. The wound. The irrigated with warm normal saline, the subcutaneous tissue was reapproximated in interrupted fashion using 3-0 Vicryl and the skin was closed in a running Subcu fashion using 3-0 Vicryl. Steri-Strips and sterile dressing was then applied. All sponge, needle and sponge counts were correct and the patient was returned to the post anesthesia care in stable condition. MD LAQUITA Vargas/jaky /2:36 PM /4:41 PM
[2017-05-08] VITALS (15 sets, daily range): BP systolic 139–162; BP diastolic 90–100; PULSE 56–67; RESP 16; TEMP 97.9–98.3; O2SAT 94–98
[2017-05-08] MEDS: HEPARIN SODIUM - SQ 10,000 UNITS/ML VIAL SQ SCH ×2 (02:01→13:23)
[2017-05-08] MEDS: KETOROLAC TROMETHAMINE 30 MG/ML (IVP) VIAL IVP SCH ×2 (03:38→08:43)
[2017-05-08 06:16] LABS: AUTOMATED NEUTROPHIL # 13.9 TH/MM3 (1.8-7.7); BASOPHIL # 0.1 TH/MM3 (0-0.2); BASOPHIL % 0.6 % (0.0-2.0); EOSINOPHIL % 0.2 % (0.0-4.0); HEMATOCRIT 41.8 % (39.0-51.0); HEMO FLAGS DIFF FINAL; LYMPH % 12.4 % (9.0-44.0); LYMPHOCYTE # 2.1 TH/MM3 (1.0-4.8); MEAN CELL VOLUME 99.4 FL (80.0-100.0); MEAN CORPUSCULAR HEMOGLOBIN 33.5 PG (27.0-34.0); MEAN CORPUSCULAR HGB CONC 33.6 % (32.0-36.0); MONO % 6.3 % (0.0-8.0); NEUT % 80.5 % (16.0-70.0); PLATELET COUNT 291 TH/MM3 (150-450); RED BLOOD COUNT 4.21 MIL/MM3 (4.50-5.90); RED CELL DISTRIBUTION WIDTH 16.3 % (11.6-17.2); WHITE BLOOD COUNT 17.3 TH/MM3 (4.0-11.0)
[2017-05-08 06:36] LABS: BICARBONATE 23.1 MEQ/L (21.0-32.0); POTASSIUM 3.9 MEQ/L (3.5-5.1)
[2017-05-08] MEDS: METOPROLOL TARTRATE 50 MG TAB PO SCH (08:42)
[2017-05-08] MEDS: hydrALAZINE HCL 25 MG TAB PO SCH ×2 (08:42→13:00)
[2017-05-08] MEDS: LISINOPRIL 20 MG TAB PO SCH (08:43)
[2017-05-08] MEDS: PANTOPRAZOLE SODIUM 40 MG VIAL IVP SCH (08:43)
--- NOTE | 2017-05-08 12:48 | HHI.PR ---
Subjective Remarks POD#2 s/p ileostomy closure comfortable Objective Vital Signs Date Time Temp Pulse Resp B/P (MAP) Pulse Ox O2 Delivery O2 Flow Rate FiO2 05/08/17 12:00 58 05/08/17 11:00 59 05/08/17 11:00 98.2 59 16 139/97 (111) 97 05/08/17 10:00 67 05/08/17 09:58 16 05/08/17 09:00 65 05/08/17 08:00 64 05/08/17 08:00 98.3 64 16 162/90 (114) 98 05/08/17 06:00 56 05/08/17 05:00 60 05/08/17 04:00 62 05/08/17 03:30 97.9 62 16 152/100 (117) 94 05/08/17 03:00 65 05/08/17 02:00 61 05/08/17 01:00 66 05/08/17 00:00 61 05/08/17 00:00 97.9 61 16 151/96 (114) 97 05/07/17 23:00 64 05/07/17 22:00 64 05/07/17 21:00 66 05/07/17 20:00 98.1 61 16 146/94 (111) 95 05/07/17 20:00 64 05/07/17 19:00 74 05/07/17 17:00 64 05/07/17 16:00 64 05/07/17 15:45 98.2 65 20 132/97 (109) 98 05/07/17 15:00 62 05/07/17 14:00 60 05/07/17 13:00 77 I/O 05/07/17 05/07/17 05/07/17 05/08/17 05/08/17 05/08/17 07:00 15:00 23:00 07:00 15:00 23:00 Intake Total 240 ml 2072 ml 721 ml Output Total 300 ml 1100 ml 750 ml Balance -60 ml 972 ml -29 ml Intake Oral 240 ml 780 ml 240 ml IV Total 1292 ml 481 ml Output Urine Total 300 ml 1100 ml 750 ml Stool Total 0 ml # Voids 4 # Bowel Movements 0 4 Result Diagram: 05/08/1742 05/08/1742 Objective Remarks Abdomen soft, nondistended, tender wound clean Assessment and Plan Assessment and Plan Home today Followup with me 2-3 weeks Lyssa Diaz MD May 08, 2017 12:48
[2017-05-08] MEDS ORDERED: HYDR-3516 PO (12:52)
--- NOTE | 2017-05-13 11:30 | MD ---
cc: FARRUKH BULLARD M.D. ADMISSION DATE: 05/06/2017 DISCHARGE DATE: 05/08/2017 ADMISSION DIAGNOSIS 1. History of colovesical fistula with LAR inversion. 2. Hypertension. DISCHARGE DIAGNOSIS 1. History of colovesical fistula with LAR inversion. 2. Hypertension. PROCEDURE: Resection with reanastomosis of ileostomy. HOSPITAL COURSE The patient is a 62-year-old male who is about 3 months out from a robotic low anterior resection with diverting ileostomy for a severe diverticulitis with colovesical fistula. He was admitted to the hospital on the 06 of May, where he underwent the above named procedure postoperatively. He did have some swelling of his tongue on the first night postoperatively but this gradually resolved and we never did find a definite source. At the time of discharge, he is tolerating a diet and moving his bowels. I will see him in the office in 2-3 weeks. MD LAQUITA Vargas/MARCELLE /12:48 PM /11:13 AM
== END 2017-05-08 15:26 | disposition home or self-care (01) | DRG 331 ==
LOC: HSDI 10:52 → HCPC 16:25
PROVIDERS: ADMIT Colon & Rectal Surgery; ATTEND Colon & Rectal Surgery
PROC: 0DBB0ZZ Excision of Ileum, Open Approach (ICD-10-PCS; principal; 2017-05-06 13:42)
DX: Z43.2 Encounter for attention to ileostomy (principal); C67.9 Malignant neoplasm of bladder, unspecified; I10 Essential (primary) hypertension; G47.30 Sleep apnea, unspecified; R22.9 Localized swelling, mass and lump, unspecified; Z87.891 Personal history of nicotine dependence
CPT/HCPCS: 80048; 80053; 85025; 86850; 86900; 86901; 88304; 94150; 94664; C9113; J0690; J1200; J1644; J1885; J2270; J3480; J7042; J7120

== ENCOUNTER → 2017-06-25 | Outpatient (CLI) | payer OTHER ==
[~2017-06-25] MED LIST changes: +HYDR-3516 PO; -LOPE2CAP2 PO
[2017-06-26 03:56] LABS: PSA, FREE 0.6 ng/mL
== END ==
LOC: CLAB 11:59
PROVIDERS: ATTEND Urology
DX: R97.20 Elevated prostate specific antigen [PSA] (principal)
CPT/HCPCS: 36415; 84153; 84154

== ENCOUNTER → 2017-10-07 | Outpatient (CLI) | payer OTHER ==
[~2017-10-07] VITALS: Ht 180.3 cm; Wt 81.6 kg
[~2017-10-07] MED LIST changes: +CHLORHEXIDINE GLUCONATE 2 % 1 PACK (2 CLOTHS) TOPICAL PRN; +DOXA1TAB36 PO; +INSULIN HUMAN REGULAR 1,000 UNITS/10 ML VIAL SQ PRN; +LACTATED RINGER'S 1000 ML IV PRN; +METOPROLOL TARTRATE 25 MG TAB PO PRN; +POVIDONE IODINE 5% (ANTISEPSIS KIT) 4 APPLICATIONS EACH NARE PRN; +SODIUM CHLORID 0.9% 500 ML IV PRN
--- NOTE | 2017-10-07 13:59 | GIPROC ---
[facility] [address] [facility]. [facility], [id number] COLONOSCOPY PROCEDURE REPORT EXAM DATE: 10/07/2017 PATIENT NAME: Cortez Bass MR #: [id number] BIRTHDATE: 1955 ENDOSCOPIST: Lyssa Diaz MD ORDER #: [id number] UX DESIGN LEAD: Gio Erwin and Monisha Martinez STATUS: outpatient INDICATIONS: The patient is a 62 yr old male here for a colonoscopy due to screening PROCEDURE PERFORMED: Total Colonoscopy MEDICATIONS: See Anesthesia Record ESTIMATED BLOOD LOSS: None CONSENT: The patient understands the risks and benefits of the procedure and understands that these risks include, but are not limited to: sedation, allergic reaction, infection, perforation and/or bleeding. Alternative means of evaluation and treatment include, among others: physical exam, x-rays, and/or surgical intervention. The patient elects to proceed with this endoscopic procedure. DESCRIPTION OF PROCEDURE: checked for proper function. Hand hygiene and appropriate measures for infection prevention was taken. After the risks, benefits and alternatives of the procedure were thoroughly explained, Informed consent was verified, confirmed and timeout was successfully executed by the treatment team. A digital exam was performed. The endoscope was introduced through the anus and advanced to the cecum, which was identified by the appendiceal orifice, tri-radiate valve, and ileocecal valve. The prep quality was good. The instrument was then slowly withdrawn as the colon was fully examined. There were no mucosal abnormalities noted with the cecum, ascending colon, transverse colon, descending colon, sigmoid, or rectum. The anastomosis was visualized and was widely patent. The scope was then completely withdrawn from the patient and the procedure terminated. ADVERSE EVENTS: There were no complications. WITHDRAWL TIME: 7 minutes DEGREE OF DIFFICULTY: IMPRESSIONS: Normal Colon RECOMMENDATIONS: Home PATIENT CONDITION: Stable DISPOSITION: Home RECALL: 10 years Lyssa Diaz MD eSigned: Lyssa Diaz MD 10/07/2017 1:58 PM cc: Dr. Bowden PATIENT NAME: Cortez Bass MR#: [id number]
[2017-10-07 14:05] VITALS: BP 153/99; PULSE 83; RESP 18; TEMP 97.5; O2SAT 98
== END ==
LOC: HEND 11:26
PROVIDERS: ATTEND Colon & Rectal Surgery
DX: Z12.11 Encounter for screening for malignant neoplasm of colon (principal)
CPT/HCPCS: 00812; G0121